=== PATIENT | female | born 1990 | race Caucasian/White ===

== ENCOUNTER 2017-05-10 18:11 | Emergency (ER) | payer SELFPAY ==
[~2017-05-10 18:11] MED LIST: METH-37 PO; NAPR-514 PO
[2017-05-10 18:25] VITALS: BP 162/111
[2017-05-10] MEDS ORDERED: IV NORMAL SALINE 1,000ML 1,000 ML IV SCH (18:45)
[2017-05-10] MEDS ORDERED: ONDANSETRON ODT 4 MG TAB.RAPDIS PO ONE (19:00)
[2017-05-10] MEDS ORDERED: NAPROXEN 500 MG TABLET PO ONE (19:00)
[2017-05-10 19:18] LABS: BASO # 0.1 x10^3/uL (0.0-0.2); BASO % 1 % (0-3); EOS # 0.3 x10^3/uL (0.0-0.7); EOS % 3 % (0-3); HEMATOCRIT 38.5 % (36.0-47.0); HEMOGLOBIN 12.8 g/dL (12.0-15.5); LYMPH # 3.3 x10^3/uL (1.0-4.8); LYMPH % 30 % (24-48); MEAN CORPUSCULAR HEMOGLOBIN 28 pg (25-35); MEAN CORPUSCULAR HGB CONC 33 g/dL (31-37); MEAN CORPUSCULAR VOLUME 85 fL (79-100); MONO # 0.6 x10^3/uL (0.0-1.1); MONO % 5 % (0-9); NEUT # 6.7 x10^3uL (1.8-7.7); NEUT % 61 % (31-73); PLATELET COUNT 314 x10^3/uL (140-400); RED BLOOD COUNT 4.51 x10^6/uL (3.50-5.40); RED CELL DISTRIBUTION WIDTH 15.5 % (11.5-14.5)
[2017-05-10 19:30] LABS: ALBUMIN 3.4 g/dL (3.4-5.0); ALBUMIN/GLOBULIN RATIO 0.8 (1.0-1.7); CALCIUM 8.9 mg/dL (8.5-10.1); CREATININE 0.8 mg/dL (0.6-1.0); POTASSIUM 3.3 mmol/L (3.5-5.1); TOTAL BILIRUBIN 0.2 mg/dL (0.2-1.0); TOTAL PROTEIN 7.6 g/dL (6.4-8.2)
[2017-05-10 19:40] LABS: BILIRUBIN,URINE NEG (NEG); CLARITY,URINE CLOUDY; COLOR,URINE YELLOW; GLUCOSE,URINE NEG (NEG); NITRITE,URINE NEG (NEG); RBC,URINE >40 /HPF (0-2); UROBILINOGEN,URINE 0.2 mg/dL (0.2 mg/dL)
[2017-05-10 19:41] LABS: BACTERIA,URINE FEW /HPF (0-FEW); SQUAMOUS EPITHELIAL CELL,UR MANY /LPF; WBC,URINE RARE /HPF (0-4)
--- NOTE | 2017-05-11 01:36 | PHYS DOC ---
Past History Past Medical History: Endometriosis, Hypertension, Kidney Stones Past Surgical History: Cholecystectomy Alcohol Use: Rarely Drug Use: None Adult General Chief Complaint Chief Complaint: FLANK PAIN HPI HPI 27-year-old female with a history of morbid obesity at over 400 pounds now presents the emergency department complaining of left flank pain. Patient states she think she has a kidney stone and is requesting some pain medicine. She states that she is allergic to Toradol and tramadol. Patient denies recent workup for kidney stone. No fevers chills sweats or shaking chills. No nausea vomiting or diarrhea. Denies possibility of as she is not sexually active Review of Systems Review of Systems Constitutional: Denies fever or chills [] Eyes: Denies change in visual acuity, redness, or eye pain [] HENT: Denies nasal congestion or sore throat [] Respiratory: Denies cough or shortness of breath [] Cardiovascular: No additional information not addressed in HPI [] GI: Denies abdominal pain, nausea, vomiting, bloody stools or diarrhea [] : Denies dysuria or hematuria [] Musculoskeletal: Denies back pain or joint pain [] Integument: Denies rash or skin lesions [] Neurologic: Denies headache, focal weakness or sensory changes [] Endocrine: Denies polyuria or polydipsia [] All other systems were reviewed and found to be within normal limits, except as documented in this note. Current Medications Current Medications Current Medications Medications (Trade) Dose Ordered Sig/Gina Start Time Stop Time Status Last Admin Dose Admin Naproxen (Naprosyn) 500 mg 1X ONCE 05/10/17 19:00 05/10/17 19:01 DC 05/10/17 19:07 500 MG Ondansetron HCl (Zofran Odt) 4 mg 1X ONCE 05/10/17 19:00 05/10/17 19:09 DC 05/10/17 19:08 4 MG Sodium Chloride 1,000 ml @ 1,000 mls/hr Q1H 05/10/17 18:45 05/10/17 19:31 DC 05/10/17 18:45 1,000 MLS/HR Allergies Allergies Allergies Coded Allergies Type Severity Reaction Last Updated Verified chlorpromazine Allergy Intermediate 04/08/14 No dicyclomine Allergy Intermediate 04/08/14 No duloxetine Allergy Intermediate 04/08/14 No fentanyl Allergy Intermediate 04/08/14 No ketorolac Allergy Intermediate 04/08/14 No promethazine Allergy Intermediate 04/08/14 No tramadol Allergy Intermediate 04/08/14 No Physical Exam Physical Exam Well-appearing patient no acute distress. No CVA tenderness. Patient is not tachycardic. And tender abdomen and anterior pelvis with normal bowel sounds no mass or megaly nondistended A completely benign exam Constitutional: Well developed, well nourished, no acute distress, non-toxic appearance. [] HENT: Normocephalic, atraumatic, bilateral external ears normal, oropharynx moist, no oral exudates, nose normal. [] Eyes: PERRLA, EOMI, conjunctiva normal, no discharge. [] Neck: Normal range of motion, no tenderness, supple, no stridor. [] Cardiovascular:Heart rate regular rhythm, no murmur [] Lungs & Thorax: Bilateral breath sounds clear to auscultation [] Abdomen: Bowel sounds normal, soft, no tenderness, no masses, no pulsatile masses. [] Skin: Warm, dry, no erythema, no rash. [] Back: No tenderness, no CVA tenderness. [] Extremities: No tenderness, no cyanosis, no clubbing, ROM intact, no edema. [] Neurologic: Alert and oriented X 3, normal motor function, normal sensory function, no focal deficits noted. [] Psychologic: Affect normal, judgement normal, mood normal. [] Current Patient Data Vital Signs Vital Signs Date Time Temp Pulse Resp B/P (MAP) Pulse Ox O2 Delivery O2 Flow Rate FiO2 05/10/17 18:25 98.8 114 20 97 Room Air Lab Results Laboratory Tests Test 05/10/17 18:20 05/10/17 18:50 05/10/17 18:59 Urine Collection Type Unknown Urine Color Yellow Urine Clarity Cloudy Urine pH 5.0 Urine Specific Forbes >=1.030 Urine Protein 30 mg/dl (NEG-TRACE) Urine Glucose (UA) Neg mg/dL (NEG) Urine Ketones (Stick) Neg mg/dL (NEG) Urine Blood Large (NEG) Urine Nitrite Neg (NEG) Urine Bilirubin Neg (NEG) Urine Urobilinogen Dipstick 0.2 mg/dL (0.2 mg/dL) Urine Leukocyte Esterase Neg (NEG) Urine RBC >40 /HPF (0-2) Urine WBC Rare /HPF (0-4) Urine Squamous Epithelial Cells Many /LPF Urine Bacteria Few /HPF (0-FEW) Urine Mucus Mod /LPF White Blood Count 11.0 x10^3/uL (4.0-11.0) Red Blood Count 4.51 x10^6/uL (3.50-5.40) Hemoglobin 12.8 g/dL (12.0-15.5) Hematocrit 38.5 % (36.0-47.0) Mean Corpuscular Volume 85 fL (79-100) Mean Corpuscular Hemoglobin 28 pg (25-35) Mean Corpuscular Hemoglobin Concent 33 g/dL (31-37) Red Cell Distribution Width 15.5 % (11.5-14.5) H Platelet Count 314 x10^3/uL (140-400) Neutrophils (%) (Auto) 61 % (31-73) Lymphocytes (%) (Auto) 30 % (24-48) Monocytes (%) (Auto) 5 % (0-9) Eosinophils (%) (Auto) 3 % (0-3) Basophils (%) (Auto) 1 % (0-3) Neutrophils # (Auto) 6.7 x10^3uL (1.8-7.7) Lymphocytes # (Auto) 3.3 x10^3/uL (1.0-4.8) Monocytes # (Auto) 0.6 x10^3/uL (0.0-1.1) Eosinophils # (Auto) 0.3 x10^3/uL (0.0-0.7) Basophils # (Auto) 0.1 x10^3/uL (0.0-0.2) Sodium Level 142 mmol/L (136-145) Potassium Level 3.3 mmol/L (3.5-5.1) L Chloride Level 103 mmol/L (98-107) Carbon Dioxide Level 28 mmol/L (21-32) Anion Gap 11 (6-14) Blood Urea Nitrogen 14 mg/dL (7-20) Creatinine 0.8 mg/dL (0.6-1.0) Estimated GFR (Cockcroft-Gault) 86.0 BUN/Creatinine Ratio 18 (6-20) Glucose Level 110 mg/dL (70-99) H Calcium Level 8.9 mg/dL (8.5-10.1) Total Bilirubin 0.2 mg/dL (0.2-1.0) Aspartate Amino Transferase (AST) 22 U/L (15-37) Alanine Aminotransferase (ALT) 34 U/L (14-59) Alkaline Phosphatase 79 U/L (46-116) Total Protein 7.6 g/dL (6.4-8.2) Albumin 3.4 g/dL (3.4-5.0) Albumin/Globulin Ratio 0.8 (1.0-1.7) L Lipase 105 U/L (73-393) POC Urine HCG, Qualitative hcg negative (Negative) EKG EKG [] Radiology/Procedures Radiology/Procedures [] Course & Med Decision Making Course & Med Decision Making Pertinent Labs and Imaging studies reviewed. (See chart for details) Morbidly obese patient who claims a history of kidney stones now requesting narcotic analgesia. She reports allergy to Toradol and tramadol. When patient became aware that she would not get IV narcotics, she decided to sign out AGAINST MEDICAL ADVICE and refused any further workup or care. Suspect malingering and drug-seeking as otherwise her behavior would not make sense for a prudent person. Encouraged to return any time [] Dragon Disclaimer Dragon Disclaimer This electronic medical record was generated, in whole or in part, using a voice recognition dictation system. Departure Departure: Impression: Primary Impression: Low back pain Additional Impressions: Drug-seeking behavior Left against medical advice Disposition: AGAINST MEDICAL ADVICE Condition: STABLE Referrals: PCP,NO (PCP) Problem Qualifiers DEAN ELKINS MD May 11, 2017 01:36
== END 2017-05-10 19:25 | disposition left against medical advice (07) ==
LOC: ER 18:11
DX: M54.5 Low back pain (principal); R10.9 Unspecified abdominal pain; E66.01 Morbid (severe) obesity due to excess calories; I10 Essential (primary) hypertension; Z76.5 Malingerer [conscious simulation]; Z87.442 Personal history of urinary calculi; Z90.49 Acquired absence of other specified parts of digestive tract; Z88.6 Allergy status to analgesic agent; Z88.8 Allergy status to other drugs, medicaments and biological substances
CPT/HCPCS: 36415; 80053; 81001; 81025; 83690; 85025; 96360; 99284; Q0162; J7030

== ENCOUNTER 2017-09-06 19:23 | Emergency (ER) | payer SELFPAY ==
[~2017-09-06] VITALS: Ht 162.6 cm; Wt 186.0 kg
[2017-09-06] MEDS ORDERED: ONDANSETRON ODT 4 MG TAB.RAPDIS ONE (19:46)
[2017-09-06] MEDS ORDERED: IV RINGERS SOLUTION,LACTATED 1,000 ML IV SCH (20:00)
[2017-09-06 20:25] LABS: BASO # 0.1 x10^3/uL (0.0-0.2); BASO % 1 % (0-3); EOS # 0.3 x10^3/uL (0.0-0.7); EOS % 2 % (0-3); HEMATOCRIT 40.5 % (36.0-47.0); HEMOGLOBIN 13.3 g/dL (12.0-15.5); LYMPH # 2.6 x10^3/uL (1.0-4.8); LYMPH % 21 % (24-48); MEAN CORPUSCULAR HEMOGLOBIN 27 pg (25-35); MEAN CORPUSCULAR HGB CONC 33 g/dL (31-37); MEAN CORPUSCULAR VOLUME 82 fL (79-100); MONO # 0.4 x10^3/uL (0.0-1.1); MONO % 4 % (0-9); NEUT # 9.2 x10^3uL (1.8-7.7); NEUT % 73 % (31-73); PLATELET COUNT 370 x10^3/uL (140-400); RED BLOOD COUNT 4.92 x10^6/uL (3.50-5.40); RED CELL DISTRIBUTION WIDTH 16.2 % (11.5-14.5); WHITE BLOOD COUNT 12.6 x10^3/uL (4.0-11.0)
[2017-09-06] MEDS ORDERED: MORPHINE SULFATE 10 MG/ML SYRINGE. SQ ONE (20:30)
[2017-09-06 20:41] LABS: ALBUMIN 3.5 g/dL (3.4-5.0); CALCIUM 8.9 mg/dL (8.5-10.1); CREATININE 0.8 mg/dL (0.6-1.0); DIRECT BILIRUBIN 0.1 mg/dL (0.0-0.2); POTASSIUM 3.7 mmol/L (3.5-5.1); TOTAL BILIRUBIN 0.4 mg/dL (0.2-1.0); TOTAL PROTEIN 7.2 g/dL (6.4-8.2)
--- NOTE | 2017-09-06 21:32 | RAD ---
Indication: Right flank pain and history of renal stones Technique: Axial images and coronal and sagittal reformatted images are provided. No comparison is available. One or more of the following individualized dose reduction techniques were utilized for this examination: 1. Automated exposure control 2. Adjustment of the mA and/or kV according to patient size 3. Use of iterative reconstruction technique Findings: Lung bases are clear. There is no pleural effusion. The heart is not enlarged. Solid organ evaluation is limited without contrast. There is fatty infiltration of the liver. Gallbladder is absent. Spleen is not enlarged. Pancreas and adrenals are unremarkable. There is no urolithiasis. Neither ureter is dilated. Aorta is normal caliber. There is no dilated small bowel loop or air-fluid level. Colon is unremarkable. Normal appendix is visualized. There is no bladder calculus. There is no adnexal mass. There is no free pelvic fluid. Bony structures are intact. Portions of this patient's subcutaneous tissues cannot be included in the [id number]. IMPRESSION: 1. No acute abdominal findings. 2. Fatty infiltration of the liver. Electronically signed by: Jose Hanna MD (09/06/2017 9:28 PM) [facility]
[2017-09-06 21:35] LABS: BILIRUBIN,URINE NEG (NEG); CLARITY,URINE HAZY; COLOR,URINE YELLOW; GLUCOSE,URINE NEG (NEG)
[2017-09-06 21:36] LABS: BACTERIA,URINE 0 /HPF (0-FEW); NITRITE,URINE NEG (NEG); RBC,URINE 20-40 /HPF (0-2); SQUAMOUS EPITHELIAL CELL,UR FEW /LPF; UROBILINOGEN,URINE 0.2 mg/dL (0.2 mg/dL)
[2017-09-06 21:38] LABS: BARBITURATES NEG (NEG); BENZODIAZEPINES NEG (NEG); CANNABINOIDS NEG (NEG); COCAINE NEG (NEG); METHADONE NEG (NEG); OPIATES POS (NEG); PHENCYCLIDINE NEG (NEG)
[2017-09-06 21:39] LABS: AMPHETAMINE/METHAMPHETAMINE NEG (NEG)
[2017-09-06] MEDS ORDERED: cefTRIAXone IM 1 GM VIAL IM ONE (21:45)
[2017-09-06] MEDS ORDERED: ONDA8TAB12 PO (21:49)
[2017-09-06 22:00] VITALS: BP 132/84
[2017-09-06] MEDS ORDERED: MAGNESIUM CITRATE 296 ML SOLUTION. PO ONE (22:15)
--- NOTE | 2017-09-07 07:08 | ED.ADGEN ---
Past History Past Medical History: Endometriosis, Hypertension, Kidney Stones, Other Past Surgical History: Cholecystectomy Alcohol Use: Rarely Drug Use: None Adult General Chief Complaint Chief Complaint ".. I think I am having a kidney stone...here on the Rt.... of course it may be a urinary tract infection.. I get those too..." HPI HPI Patient is a 27 year old female who presents with Rt. flank pain this afternoon. Patient rates her pain as 10 out of 10. Pain is right upper flank and radiates to lower abdomen. Patient reports history of previous kidney stones. Patient denies any trauma. Patient denies any specific ill contacts. Patient denies any travel. Patient denies any history of immunosuppression. Patient does not follow-up primary care. Patient has been seen previously for similar-type presentations. Patient does have a history of endometriosis. Patient reports she is due for period. Patient does exhibit some narcotic seeking behaviors. Review of Systems Review of Systems Constitutional: Denies fever or chills [] Eyes: Denies change in visual acuity, redness, or eye pain [] HENT: Denies nasal congestion or sore throat [] Respiratory: Denies cough or shortness of breath [] Cardiovascular: No additional information not addressed in HPI [] GI: Complaints of abdominal pain, nausea, vomiting, . Denies bloody stools or diarrhea [] : Denies dysuria or hematuria [] Musculoskeletal: Denies back pain or joint pain [] Integument: Denies rash or skin lesions [] Neurologic: Denies headache, focal weakness or sensory changes [] Endocrine: Denies polyuria or polydipsia [] All other systems were reviewed and found to be within normal limits, except as documented in this note. Family History Family History Noncontributory Current Medications Current Medications Current Medications Medications (Trade) Dose Ordered Sig/Gina Start Time Stop Time Status Last Admin Dose Admin Ceftriaxone Sodium (Rocephin Im) 1 gm 1X ONCE 09/06/17 21:45 09/06/17 21:46 DC Lactated Ringer's 1,000 ml @ 1,000 mls/hr Q1H 09/06/17 20:00 09/06/17 20:59 DC 09/06/17 19:52 1,000 MLS/HR Magnesium Citrate (Citroma) 296 ml 1X ONCE 09/06/17 22:15 09/06/17 22:16 DC Morphine Sulfate (Morphine 10mg Syringe) 10 mg 1X ONCE 09/06/17 20:30 09/06/17 20:31 DC 09/06/17 20:30 10 MG Ondansetron HCl (Zofran Odt) 4 mg STK-MED ONCE 09/06/17 19:46 09/06/17 19:47 DC Allergies Allergies Allergies Coded Allergies Type Severity Reaction Last Updated Verified chlorpromazine Allergy Intermediate 09/06/17 No dicyclomine Allergy Intermediate 09/06/17 No duloxetine Allergy Intermediate 09/06/17 No fentanyl Allergy Intermediate 09/06/17 No ketorolac Allergy Intermediate 09/06/17 No promethazine Allergy Intermediate 09/06/17 No tramadol Allergy Intermediate 09/06/17 No ibuprofen Allergy Unknown Hives 09/06/17 Yes Physical Exam Physical Exam Constitutional: Moderately acute distress, non-toxic appearance. [] HENT: Normocephalic, atraumatic, bilateral external ears normal, oropharynx moist, no oral exudates, nose normal. [] Eyes: PERRLA, EOMI, conjunctiva normal, no discharge. [] Neck: Normal range of motion, no tenderness, supple, no stridor. [] Cardiovascular:Heart rate regular rhythm, no murmur [] Lungs & Thorax: Bilateral breath sounds equal at apex with scattered wheezes on auscultation [] Abdomen: Bowel sounds normal, soft, upper right quadrant and flank tenderness, no masses, no pulsatile masses. [] Morbidly obese. Skin: Warm, dry, no erythema, no rash. [] Back: No tenderness, right CVA tenderness. [] Extremities: No tenderness, no cyanosis, no clubbing, ROM intact, ankle edema. [ ] Neurologic: Alert and oriented X 3, normal motor function, normal sensory function, no focal deficits noted. [] Psychologic: Affect anxious, judgement normal, mood normal. [] Current Patient Data Vital Signs Vital Signs Date Time Temp Pulse Resp B/P (MAP) Pulse Ox O2 Delivery O2 Flow Rate FiO2 09/06/17 21:30 97 18 140/87 (104) 96 Room Air 09/06/17 19:27 98.8 Lab Results Laboratory Tests Test 09/06/17 19:52 09/06/17 20:46 White Blood Count 12.6 x10^3/uL (4.0-11.0) H Red Blood Count 4.92 x10^6/uL (3.50-5.40) Hemoglobin 13.3 g/dL (12.0-15.5) Hematocrit 40.5 % (36.0-47.0) Mean Corpuscular Volume 82 fL (79-100) Mean Corpuscular Hemoglobin 27 pg (25-35) Mean Corpuscular Hemoglobin Concent 33 g/dL (31-37) Red Cell Distribution Width 16.2 % (11.5-14.5) H Platelet Count 370 x10^3/uL (140-400) Neutrophils (%) (Auto) 73 % (31-73) Lymphocytes (%) (Auto) 21 % (24-48) L Monocytes (%) (Auto) 4 % (0-9) Eosinophils (%) (Auto) 2 % (0-3) Basophils (%) (Auto) 1 % (0-3) Neutrophils # (Auto) 9.2 x10^3uL (1.8-7.7) H Lymphocytes # (Auto) 2.6 x10^3/uL (1.0-4.8) Monocytes # (Auto) 0.4 x10^3/uL (0.0-1.1) Eosinophils # (Auto) 0.3 x10^3/uL (0.0-0.7) Basophils # (Auto) 0.1 x10^3/uL (0.0-0.2) Prothrombin Time 11.0 SEC (9.4-11.4) Prothrombin Time INR 1.1 (0.9-1.1) PTT 25 SEC (23-33) Sodium Level 142 mmol/L (136-145) Potassium Level 3.7 mmol/L (3.5-5.1) Chloride Level 104 mmol/L (98-107) Carbon Dioxide Level 31 mmol/L (21-32) Anion Gap 7 (6-14) Blood Urea Nitrogen 7 mg/dL (7-20) Creatinine 0.8 mg/dL (0.6-1.0) Estimated GFR (Cockcroft-Gault) 86.0 Glucose Level 91 mg/dL (70-99) Calcium Level 8.9 mg/dL (8.5-10.1) Total Bilirubin 0.4 mg/dL (0.2-1.0) Direct Bilirubin 0.1 mg/dL (0.0-0.2) Aspartate Amino Transferase (AST) 28 U/L (15-37) Alanine Aminotransferase (ALT) 39 U/L (14-59) Alkaline Phosphatase 85 U/L (46-116) Total Protein 7.2 g/dL (6.4-8.2) Albumin 3.5 g/dL (3.4-5.0) Lipase 67 U/L (73-393) L Urine Collection Type Unknown Urine Color Yellow Urine Clarity Hazy Urine pH 6.5 Urine Specific Gilbert 1.020 Urine Protein 100 mg/dl (NEG-TRACE) Urine Glucose (UA) Neg mg/dL (NEG) Urine Ketones (Stick) Trace mg/dL (NEG) Urine Blood Large (NEG) Urine Nitrite Neg (NEG) Urine Bilirubin Neg (NEG) Urine Urobilinogen Dipstick 0.2 mg/dL (0.2 mg/dL) Urine Leukocyte Esterase Neg (NEG) Urine RBC 20-40 /HPF (0-2) Urine WBC 1-4 /HPF (0-4) Urine Squamous Epithelial Cells Few /LPF Urine Bacteria 0 /HPF (0-FEW) Urine Mucus Mod /LPF Urine Opiates Screen Pos (NEG) Urine Methadone Screen Neg (NEG) Urine Barbiturates Neg (NEG) Urine Phencyclidine Screen Neg (NEG) Urine Amphetamine/Methamphetamine Neg (NEG) Urine Benzodiazepines Screen Neg (NEG) Urine Cocaine Screen Neg (NEG) Urine Cannabinoids Screen Neg (NEG) Urine Ethyl Alcohol Neg (NEG) EKG EKG [] Radiology/Procedures Radiology/Procedures CT findings showed no hydronephrosis. No acute surgical pathology. Review formal report available[] Course & Med Decision Making Course & Med Decision Making Pertinent Labs and Imaging studies reviewed. (See chart for details). Pt. decline plain X-ray films. Shortly after pt. received Morphine SQ-pt demanded discharge. Patient encouraged follow-up primary care. Patient return if any concerns. Patient stay on a clear fluid diet only for the next 48 hours. Push fluids. Tylenol and ibuprofen for pain. [] Final Impression Final Impression 1. Right flank abdomen pain[] 2. Hematuria 3. Hx. endometriosis 4. Morbid Obesity 5. Renal Colic 6. Mild leukocytosis Dragon Disclaimer Dragon Disclaimer This electronic medical record was generated, in whole or in part, using a voice recognition dictation system. KAREN BACA MD Sep 07, 2017 07:08
== END 2017-09-06 22:32 | disposition home or self-care (01) ==
LOC: ER 19:23
DX: N23 Unspecified renal colic (principal); R31.9 Hematuria, unspecified; D72.829 Elevated white blood cell count, unspecified; I10 Essential (primary) hypertension; E66.01 Morbid (severe) obesity due to excess calories; Z87.442 Personal history of urinary calculi; Z68.45 Body mass index [BMI] 70 or greater, adult; Z88.6 Allergy status to analgesic agent; Z88.4 Allergy status to anesthetic agent; Z88.8 Allergy status to other drugs, medicaments and biological substances
CPT/HCPCS: 36415; 74176; 80048; 80076; 80307; 81001; 83690; 85025; 85610; 85730; 96360; 96372; 99285; J2270; J7120; G0479

== ENCOUNTER 2017-09-07 12:50 | Emergency (ER) | payer SELFPAY ==
[~2017-09-07] VITALS: Ht 162.6 cm; Wt 182.0 kg
[~2017-09-07 12:50] MED LIST changes: +ONDA8TAB12 PO
[2017-09-07 13:06] VITALS: BP 153/90
--- NOTE | 2017-09-07 16:13 | ED.ADGEN ---
Past History Past Medical History: Kidney Infection, Kidney Stones, UTI Past Surgical History: Cholecystectomy Alcohol Use: None Drug Use: None Adult General Chief Complaint Chief Complaint Back pain HPI HPI Patient is a 27-year-old female with history of chronic intermittent back pain who presents with right back pain. Patient was evaluated for the same complaint last evening in the emergency department. Pain is described as moderate to severe and worse with palpation and movement. She had extensive workup including blood work, urine and imaging studies. Patient left prior to results and is concerned that she may have a kidney infection. No fever chills, nausea vomiting. No abdominal pain. No hematuria. No history of kidney stones. No urinary frequency urgency.[] Review of Systems Review of Systems Review symptoms as per history of present illness. All other review symptoms are negative. All other systems were reviewed and found to be within normal limits, except as documented in this note. Allergies Allergies Allergies Coded Allergies Type Severity Reaction Last Updated Verified chlorpromazine Allergy Intermediate 09/06/17 No dicyclomine Allergy Intermediate 09/06/17 No duloxetine Allergy Intermediate 09/06/17 No fentanyl Allergy Intermediate 09/06/17 No ketorolac Allergy Intermediate 09/06/17 No promethazine Allergy Intermediate 09/06/17 No tramadol Allergy Intermediate 09/06/17 No ibuprofen Allergy Unknown Hives 09/06/17 Yes Physical Exam Physical Exam Constitutional: Well developed, well nourished, no acute distress, non-toxic appearance. [] HENT: Normocephalic, atraumatic, bilateral external ears normal, oropharynx moist, no oral exudates, nose normal. [] Eyes: PERRL.. [] Neck: Normal range of motion, no tenderness. [] Cardiovascular:Heart rate regular rhythm.[] Lungs & Thorax: Bilateral breath sounds clear to auscultation [] Abdomen: Bowel sounds normal, soft, no tenderness. [] Skin: Warm, dry. [] Back: Right-sided mid back pain, worse with palpation, movement and trunk rotation. [] Extremities: No tenderness. [] Neurologic: Alert and oriented X 3, normal motor function, normal sensory function, no focal deficits noted. [] Psychologic: Affect normal, judgement normal, mood normal. [] Current Patient Data Vital Signs Vital Signs Date Time Temp Pulse Resp B/P (MAP) Pulse Ox O2 Delivery O2 Flow Rate FiO2 09/07/17 13:06 99.2 120 22 98 Room Air EKG EKG [] Radiology/Procedures Radiology/Procedures [09/06/17, CT Abdomen/pelvis: No acute disease Course & Med Decision Making Course & Med Decision Making Pertinent Labs and Imaging studies reviewed. (See chart for details) [Previous medical records reviewed. Diffuse right back pain, worse with palpation and movement. Lab, and imaging studies reviewed and yesterday nondiagnostic. Recommend supportive care PCP for further management..] Final Impression Final Impression [#1 right sided back pain] [place] Disclaimer Dragon Disclaimer This electronic medical record was generated, in whole or in part, using a voice recognition dictation system. YASMINE DESHPANDE DO Sep 07, 2017 16:13
== END 2017-09-07 13:38 | disposition home or self-care (01) ==
LOC: ER 12:50
DX: M54.89 Other dorsalgia (principal); Z87.440 Personal history of urinary (tract) infections; Z87.442 Personal history of urinary calculi; Z90.49 Acquired absence of other specified parts of digestive tract; Z88.6 Allergy status to analgesic agent; Z88.4 Allergy status to anesthetic agent; Z88.8 Allergy status to other drugs, medicaments and biological substances
CPT/HCPCS: 99281

== ENCOUNTER 2018-01-25 14:18 | Emergency (ER) | payer SELFPAY ==
[~2018-01-25] VITALS: Ht 162.6 cm; Wt 174.6 kg
[2018-01-25 14:22] VITALS: BP 153/90
[2018-01-25] MEDS ORDERED: HYDR-971 PO (14:55)
[2018-01-25] MEDS ORDERED: NAPR-683 PO (14:55)
--- NOTE | 2018-01-25 14:55 | PHYS DOC ---
Past History Past Medical History: Kidney Infection, Kidney Stones, UTI Past Surgical History: Cholecystectomy Smoking: Cigarettes Alcohol Use: None Drug Use: None Adult General Chief Complaint Chief Complaint: SHOULDER INJURY [facility] HPI Patient is a 28 year old right-handed female who presents with complaining of fall and injury to left shoulder. Patient states she had an accidental fall and landed on her left shoulder without loss of consciousness or other injuries. Patient states she able to raise her arm and rated her pain as a severe pain. Patient denies . Review of Systems Review of Systems Constitutional: Denies fever or chills [] Eyes: Denies change in visual acuity, redness, or eye pain [] HENT: Denies nasal congestion or sore throat [] Respiratory: Denies cough or shortness of breath [] Cardiovascular: No additional information not addressed in HPI [] GI: Denies abdominal pain, nausea, vomiting, bloody stools or diarrhea [] : Denies dysuria or hematuria [] Musculoskeletal: Denies back pain, reports joint pain [] Integument: Denies rash or skin lesions [] Neurologic: Denies headache, focal weakness or sensory changes [] Endocrine: Denies polyuria or polydipsia [] All other systems were reviewed and found to be within normal limits, except as documented in this note. Allergies Allergies Allergies Coded Allergies Type Severity Reaction Last Updated Verified chlorpromazine Allergy Intermediate 09/06/17 No dicyclomine Allergy Intermediate 09/06/17 No duloxetine Allergy Intermediate 09/06/17 No fentanyl Allergy Intermediate 09/06/17 No ketorolac Allergy Intermediate 09/06/17 No promethazine Allergy Intermediate 09/06/17 No tramadol Allergy Intermediate 09/06/17 No ibuprofen Allergy Unknown Hives 09/06/17 Yes Physical Exam Physical Exam Constitutional: Well developed, well nourished, MILD distress, non-toxic appearance, morbidly obese. [] HENT: Normocephalic, atraumatic. Eyes: PERRLA, EOMI, conjunctiva normal, no discharge. [] Neck: Normal range of motion, no tenderness, supple, no stridor. [] Cardiovascular:Heart rate regular rhythm, no murmur [] Lungs & Thorax: Bilateral breath sounds clear to auscultation [] Skin: Warm, dry, no erythema, no rash. [] Back: No tenderness, no CVA tenderness. [] Extremities: Left shoulder without deformity or edema, painful range of motion, no tenderness, no cyanosis, no clubbing, ROM intact, no edema. [] Neurologic: Alert and oriented X 3, normal motor function, normal sensory function, no focal deficits noted. [] Psychologic: Affect anxious, judgement normal, mood normal. [] EKG EKG [] Radiology/Procedures Radiology/Procedures [] Course & Med Decision Making Course & Med Decision Making Pertinent Imaging studies reviewed. (See chart for details) Evaluation of patient in ER showed 28-year-old female patient with complaining of injury to left shoulder. Patient had unremarkable physical exam and x-ray. Plan discharge patient home with diagnosis of shoulder sprain. Dragon Disclaimer Dragon Disclaimer This electronic medical record was generated, in whole or in part, using a voice recognition dictation system. Departure Departure: Impression: Primary Impression: Left shoulder strain Additional Impressions: Morbid obesity Tobacco abuse Tobacco abuse counseling Fall at home Disposition: HOME, SELF-CARE (at 1455) Condition: STABLE Referrals: PCP,NO (PCP) Patient Instructions: Fall Prevention and Home Safety, Shoulder Sprain, Smoking Cessation, Tips For Success Additional Instructions: Apply ice on the affected area Follow-up with your orthopedic physician in 2 or 3 days or call quality control coordinator orthopedic physician Dr. Hughes at [phone] to make an appointment Return to ER if not getting better Scripts Hydrocodone Bit/Acetaminophen (NORCO 5-325 TABLET) 1 Each Tablet 1 TAB PO PRN Q6HRS PRN for PAIN, #8 TAB 0 Refills Prov: KEEGAN BEST MD 01/25/18 Naproxen (NAPROSYN) 500 Mg Tablet 1 TAB PO BID, #20 TAB Prov: KEEGAN BEST MD 01/25/18 Problem Qualifiers KEEGAN BEST MD Jan 25, 2018 14:55
--- NOTE | 2018-01-25 15:01 | RAD ---
Indication:FELL HURT SHOULDER THIS AM, SHIELDED TECHNIQUE: 3 views of the right shoulder COMPARISON:None FINDINGS:No acute fracture or dislocation. Visualized right lung is clear. No osteoarthritis. IMPRESSION: No acute findings. Electronically signed by: Jesse Ford DO (01/25/2018 2:57 PM) [facility]
[2018-01-25] MEDS ORDERED: HYDROcodone/APAP 5/325MG 1 TAB TABLET PO ONE (15:15)
== END 2018-01-25 15:05 | disposition home or self-care (01) ==
LOC: ER 14:18
DX: S46.912A Strain of unspecified muscle, fascia and tendon at shoulder and upper arm level, left arm, initial encounter (principal); F17.210 Nicotine dependence, cigarettes, uncomplicated; E66.01 Morbid (severe) obesity due to excess calories; Z87.442 Personal history of urinary calculi; Z87.440 Personal history of urinary (tract) infections; Z71.6 Tobacco abuse counseling; Z68.44 Body mass index [BMI] 60.0-69.9, adult; W18.30XA Fall on same level, unspecified, initial encounter; Y93.89 Activity, other specified; Y92.098 Other place in other non-institutional residence as the place of occurrence of the external cause; Y99.8 Other external cause status
CPT/HCPCS: 73030; 99284

== ENCOUNTER 2018-01-30 16:16 | Emergency (ER) | payer SELFPAY ==
[~2018-01-30] VITALS: Ht 162.6 cm; Wt 170.0 kg
[~2018-01-30 16:16] MED LIST changes: +HYDR-971 PO; +NAPR-683 PO
[2018-01-30 16:30] VITALS: BP 164/99
--- NOTE | 2018-01-30 16:41 | ED.ADGEN ---
Past History Past Medical History: Kidney Infection, Kidney Stones, UTI Past Surgical History: Cholecystectomy Smoking: Cigarettes Alcohol Use: None Drug Use: None Adult General Chief Complaint Chief Complaint Chronic left shoulder pain HPI HPI Patient is a 28-year-old right-handed female with history of chronic left shoulder injury with partial rotator cuff tear who presents with poorly controlled left shoulder pain. Patient was evaluated the 5 days ago for the same and was prescribed hydrocodone and naproxen. States she is currently out of hydrocodone and that naproxen does not adequately control her pain. 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 She is currently scheduled to follow-up with orthopedic physician this week.] Review of Systems Review of Systems Review symptoms as per history of present illness. All other systems were reviewed and found to be within normal limits, except as documented in this note. Allergies Allergies Allergies Coded Allergies Type Severity Reaction Last Updated Verified chlorpromazine Allergy Intermediate 09/06/17 No dicyclomine Allergy Intermediate 09/06/17 No duloxetine Allergy Intermediate 09/06/17 No fentanyl Allergy Intermediate 09/06/17 No ketorolac Allergy Intermediate 09/06/17 No promethazine Allergy Intermediate 09/06/17 No tramadol Allergy Intermediate 09/06/17 No ibuprofen Allergy Unknown Hives 09/06/17 Yes Physical Exam Physical Exam Constitutional: Well developed, well nourished, no acute distress, non-toxic appearance. [] HENT: Normocephalic, atraumatic, bilateral external ears normal, oropharynx moist, no oral exudates, nose normal. [] Eyes: PERRLA, EOMI, conjunctiva normal, no discharge. [] Neck: Normal range of motion, no tenderness, supple, no stridor. [] Extremities: Shoulder, soft tissue tenderness, pain range of motion, no deformity swelling bruising, warmth appreciated.. [] Neurologic: Alert and oriented X 3, normal motor function, normal sensory function, no focal deficits noted. [] Psychologic: Affect normal, judgement normal, mood normal. [] Current Patient Data Vital Signs Vital Signs Date Time Temp Pulse Resp B/P (MAP) Pulse Ox O2 Delivery O2 Flow Rate FiO2 01/30/18 16:30 98.5 115 20 98 Room Air EKG EKG [] Radiology/Procedures Radiology/Procedures [] Course & Med Decision Making Course & Med Decision Making Pertinent Labs and Imaging studies reviewed. (See chart for details) [Chronic left shoulder pain exacerbation with recent evaluation in this ED 5 days ago for the same. Nonnarcotic pain medication offered but declined by patient. Patient placed in sling. Given that this is a chronic medical condition and the patient's recent received a narcotic prescription from this emergency department 5 days ago I am not comfortable refilling this medication. 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 ] Final Impression Final Impression [#1 chronic left shoulder pain] Crys Disclaimer Dragon Disclaimer This electronic medical record was generated, in whole or in part, using a voice recognition dictation system. YASMINE DESHPANDE DO Jan 30, 2018 16:41
== END 2018-01-30 16:40 | disposition home or self-care (01) ==
LOC: ER 16:16
DX: G89.29 Other chronic pain (principal); M25.512 Pain in left shoulder; F17.210 Nicotine dependence, cigarettes, uncomplicated; Z87.440 Personal history of urinary (tract) infections; Z87.442 Personal history of urinary calculi; Z88.8 Allergy status to other drugs, medicaments and biological substances; Z88.6 Allergy status to analgesic agent
CPT/HCPCS: 99282

== ENCOUNTER 2018-02-20 10:00 | Emergency (ER) | payer SELFPAY ==
[~2018-02-20] VITALS: Ht 162.6 cm; Wt 167.8 kg
[~2018-02-20 10:00] MED LIST changes: +HYDR-3165 PO; -HYDR-971 PO
[2018-02-20 10:08] VITALS: BP 168/118
[2018-02-20] MEDS ORDERED: METOCLOPRAMIDE HCL 10 MG/2 ML VIAL. IM ONE (10:30)
[2018-02-20] MEDS ORDERED: MEPERIDINE PF 50 MG/ML VIAL. IV ONE ×3 (10:30→12:15)
[2018-02-20] MEDS ORDERED: IV NORMAL SALINE 1,000ML 1,000 ML IV SCH (10:30)
--- NOTE | 2018-02-20 10:35 | PHYS DOC ---
Past History Past Medical History: Hypertension, Kidney Infection, Kidney Stones, UTI Past Surgical History: Cholecystectomy Smoking: Cigarettes Alcohol Use: None Drug Use: None Adult General Chief Complaint Chief Complaint: FLANK PAIN HPI HPI Patient is a 28 year old female who presents with left flank pain wrapping around to her left lower quadrant. This started this morning waking her up from sleep. Patient has nausea and vomiting. Patient has a history of previous kidney stones and this is how her previous kidney stones presented. She noticed blood in her urine as well. No vaginal bleeding. Patient is 1 para 0, and approximately 11 weeks . No blood in her emesis. No home medicines have been taken. No diarrhea. Nothing seems to make the pain better or worse. No fevers.[] Review of Systems Review of Systems Constitutional: Denies fever or chills [] Eyes: Denies change in visual acuity, redness, or eye pain [] HENT: Denies nasal congestion or sore throat [] Respiratory: Denies cough or shortness of breath [] Cardiovascular: No chest pain or palpitations[] GI: See history of present illness[] : Denies dysuria or hematuria [] Musculoskeletal: Denies back pain or joint pain [] Integument: Denies rash or skin lesions [] Neurologic: Denies headache, focal weakness or sensory changes [] Endocrine: Denies polyuria or polydipsia [] All other systems were reviewed and found to be within normal limits, except as documented in this note. Current Medications Current Medications Current Medications Medications (Trade) Dose Ordered Sig/Gina Start Time Stop Time Status Last Admin Dose Admin Meperidine HCl (Demerol) 50 mg 1X ONCE 02/20/18 10:30 02/20/18 10:31 Metoclopramide HCl (Reglan Vial) 10 mg 1X ONCE 02/20/18 10:30 02/20/18 10:31 Sodium Chloride 1,000 ml @ 1,000 mls/hr Q1H 02/20/18 10:30 02/20/18 11:29 Allergies Allergies Allergies Coded Allergies Type Severity Reaction Last Updated Verified chlorpromazine Allergy Intermediate 09/06/17 No dicyclomine Allergy Intermediate 09/06/17 No duloxetine Allergy Intermediate 09/06/17 No fentanyl Allergy Intermediate 09/06/17 No ketorolac Allergy Intermediate 09/06/17 No promethazine Allergy Intermediate 09/06/17 No tramadol Allergy Intermediate 09/06/17 No ibuprofen Allergy Unknown Hives 09/06/17 Yes Physical Exam Physical Exam Constitutional: Well developed, well nourished, uncomfortable, moving around in an attempt to get pain control, non-toxic appearance. [] HENT: Normocephalic, atraumatic, bilateral external ears normal, oropharynx moist, no oral exudates, nose normal. [] Eyes: PERRLA, EOMI, conjunctiva normal, no discharge. [] Neck: Normal range of motion, no tenderness, supple, no stridor. [] Cardiovascular:Heart rate regular rhythm, no murmur [] Lungs & Thorax: Bilateral breath sounds clear to auscultation [] Abdomen: Bowel sounds normal, soft, no tenderness, no masses, no pulsatile masses. [] Skin: Warm, dry, no erythema, no rash. [] Back: No tenderness, no CVA tenderness. [] Extremities: No tenderness, no cyanosis, no clubbing, ROM intact, no edema. [] Neurologic: Alert and oriented X 3, normal motor function, normal sensory function, no focal deficits noted. [] Psychologic: Affect normal, judgement normal, mood normal. [] Current Patient Data Vital Signs Vital Signs Date Time Temp Pulse Resp B/P (MAP) Pulse Ox O2 Delivery O2 Flow Rate FiO2 02/20/18 10:08 Room Air 02/20/18 10:08 98.0 116 22 100 EKG EKG [] Radiology/Procedures Radiology/Procedures Pelvic ultrasound shows a single live intrauterine with an estimated gestational age of 10 weeks 3 days. Ovaries are not visualized. Trace pelvic free fluid, likely physiologic. Ultrasound of the kidneys shows both kidneys present without hydronephrosis[] Course & Med Decision Making Course & Med Decision Making Pertinent Labs and Imaging studies reviewed. (See chart for details) Medical decision making: This is most likely kidney stone patient has had one previously we'll attempt outpatient management with narcotic pain medicine and antiemetics and have patient follow-up with her urologist as well as primary care physician. Cannot prescribe NSAIDs given that she is . There is no evidence of an ectopic . No evidence of oral intake intolerance. No other evidence of acute intra-abdominal pathology. ED course: Patient arrived, was placed in bed, in tolerated exam well. Patient didn't achieve pain relief with IV Demerol. Was transported to and from [facility] with any complications. She did require second dose of Demerol on the emergency department. Patient was discharged in improved condition after labs and imaging studies of been explained. All questions were answered.[] Dragon Disclaimer Dragon Disclaimer This electronic medical record was generated, in whole or in part, using a voice recognition dictation system. Departure Departure: Impression: Primary Impression: Kidney stone on left side Additional Impression: 10 weeks gestation of Disposition: HOME, SELF-CARE Condition: GOOD Referrals: PCP,NO (PCP) Patient Instructions: Diet for Kidney Stones, Kidney Stones, Additional Instructions: Drink plenty of fluids. 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 Return to the ER if any concerns. Scripts Ondansetron Hcl (ZOFRAN) 4 Mg Tablet 1 TAB PO Q6HRS for vomiting, #20 TAB Prov: WILLI YEE DO 02/20/18 Acetaminophen With Codeine (TYLENOL WITH CODEINE #3 TABLET) 1 Each Tablet 1 TAB PO Q4-6HRS for pain, #30 TAB Prov: WILLI YEE DO 02/20/18 Tamsulosin Hcl (FLOMAX) 0.4 Mg Cap.er.24h 0.4 MG PO DAILY for kidney stone, #10 CAP.SR Prov: WLILI YEE DO 02/20/18 Problem Qualifiers WILLI YEE DO Feb 20, 2018 10:35
[2018-02-20 10:37] LABS: BILIRUBIN,URINE NEG (NEG); CLARITY,URINE CLOUDY; COLOR,URINE RED; GLUCOSE,URINE NEG (NEG); NITRITE,URINE NEG (NEG); UROBILINOGEN,URINE 0.2 mg/dL (0.2 mg/dL)
[2018-02-20 10:39] LABS: BACTERIA,URINE FEW /HPF (0-FEW); RBC,URINE >40 /HPF (0-2); SQUAMOUS EPITHELIAL CELL,UR MOD /LPF
[2018-02-20 10:40] LABS: BASO # 0.1 x10^3/uL (0.0-0.2); BASO % 1 % (0-3); EOS # 0.2 x10^3/uL (0.0-0.7); EOS % 3 % (0-3); HEMATOCRIT 40.6 % (36.0-47.0); HEMOGLOBIN 13.5 g/dL (12.0-15.5); LYMPH # 2.9 x10^3/uL (1.0-4.8); LYMPH % 30 % (24-48); MEAN CORPUSCULAR HEMOGLOBIN 30 pg (25-35); MEAN CORPUSCULAR HGB CONC 33 g/dL (31-37); MEAN CORPUSCULAR VOLUME 90 fL (79-100); MONO # 0.4 x10^3/uL (0.0-1.1); MONO % 4 % (0-9); NEUT # 6.1 x10^3uL (1.8-7.7); NEUT % 62 % (31-73); PLATELET COUNT 283 x10^3/uL (140-400); RED CELL DISTRIBUTION WIDTH 14.7 % (11.5-14.5); WHITE BLOOD COUNT 9.8 x10^3/uL (4.0-11.0)
[2018-02-20 10:55] LABS: ALBUMIN 3.3 g/dL (3.4-5.0); ALBUMIN/GLOBULIN RATIO 0.8 (1.0-1.7); CALCIUM 8.7 mg/dL (8.5-10.1); CREATININE 0.6 mg/dL (0.6-1.0); POTASSIUM 3.6 mmol/L (3.5-5.1); TOTAL BILIRUBIN 0.3 mg/dL (0.2-1.0); TOTAL PROTEIN 7.4 g/dL (6.4-8.2)
--- NOTE | 2018-02-20 12:22 | RAD ---
Ultrasound of ventricles and 14 weeks with transvaginal ultrasound 02/20/2018 Clinical indications: Pelvic pain 11 weeks . COMPARISON: None. FINDINGS: Transabdominal and endovaginal images were obtained. Transabdominal images are limited in evaluation due to body habitus. Uterus measures 11.2 x 5.9 x 8.1 cm. There is a fundal gestational sac and pole with the crown-rump length measuring 3.5 cm consistent with estimated gestational age of 10 weeks 3 days. heart rate is identified estimated at 178 bpm. There is trace pelvic free fluid, likely physiologic. The ovaries are not visualized. IMPRESSION: 1. Single living intrauterine with estimated gestational age of 10 weeks 3 days. 2. Ovaries are not visualized. 3. Trace pelvic free fluid, likely physiologic. Electronically signed by: Michael Cole MD (02/20/2018 12:18 PM) [facility]
--- NOTE | 2018-02-20 12:23 | RAD ---
Renal ultrasound complete 02/20/2018 Clinical indications: Left flank pain, . COMPARISON: CT abdomen pelvis 09/06/2017. FINDINGS: Right kidney measures 13.4 cm is length without hydronephrosis or normal perinephric fluid collection. The partially distended urinary bladder is unremarkable. Left kidney measures 12.9 cm in length without hydronephrosis or abnormal perinephric fluid collection. IMPRESSION: Both kidneys present without hydronephrosis. Electronically signed by: Michael Cole MD (02/20/2018 12:19 PM) [facility]
[2018-02-20] MEDS ORDERED: ONDANSETRON PF 4 MG/2 ML VIAL. IV ONE (12:30)
[2018-02-20] MEDS ORDERED: ACET-704 PO (13:11)
[2018-02-20] MEDS ORDERED: ONDA4TAB7 PO (13:11)
[2018-02-20] MEDS ORDERED: TAMS0.4C97 PO (13:11)
== END 2018-02-20 13:58 | disposition home or self-care (01) ==
LOC: ER 10:00
DX: O26.831 Pregnancy related renal disease, first trimester (principal); N20.0 Calculus of kidney; O16.1 Unspecified maternal hypertension, first trimester; O23.41 Unspecified infection of urinary tract in pregnancy, first trimester; O99.331 Smoking (tobacco) complicating pregnancy, first trimester; Z90.49 Acquired absence of other specified parts of digestive tract; Z3A.10 10 weeks gestation of pregnancy; Z88.1 Allergy status to other antibiotic agents; Z88.6 Allergy status to analgesic agent; Z88.8 Allergy status to other drugs, medicaments and biological substances
CPT/HCPCS: 36415; 76770; 76801; 76817; 80053; 81001; 84702; 85025; 96374; 96375; 96376; 99284; J2175; J2405; J7030

== ENCOUNTER 2018-03-07 21:15 | Emergency (ER) | payer SELFPAY ==
[~2018-03-07] VITALS: Ht 162.6 cm; Wt 176.9 kg
[~2018-03-07 21:15] MED LIST changes: +ACET-704 PO; +ONDA4TAB7 PO; +TAMS0.4C97 PO
--- NOTE | 2018-03-07 21:34 | ED.ADGEN ---
Past History Past Medical History: Hypertension, Kidney Infection, Kidney Stones, UTI, Other Past Medical History Endometriosis Past Surgical History: Cholecystectomy Smoking: Cigarettes Alcohol Use: None Drug Use: None Adult General Chief Complaint Chief Complaint ".. They think I have a kidney stone.. on the Lt.. .. My father had them.. I am about 13 weeks .. and have be following at ... but I am puking too much... and hurt too much...".. " I ve been puking so much today..." HPI HPI Patient is a 28 year old female who presents with complaints of severe left flank pain. Patient has approximately 13 weeks . Has had increased hematuria. Pain is localized mid flank on the left on percussion. Patient is morbidly obese. Patient does have a history of endometriosis. Patient considered a high risk and gets all her care at with primary and OB. Patient denies any trauma. Patient denies any travel. Patient denies any specific ill contacts. Patient denies any vaginal discharge. Patient poorly has had normal stools. Patient denies any history of STDs. Previous ultrasound in our location showed no hydronephrosis but did have hematuria. Review of Systems Review of Systems Constitutional: Denies fever or chills [] Eyes: Denies change in visual acuity, redness, or eye pain [] HENT: Denies nasal congestion or sore throat [] Respiratory: Denies cough or shortness of breath [] Cardiovascular: No additional information not addressed in HPI [] GI: Complaints of left flank abdominal pain, nausea, vomiting,. Denies bloody stools or diarrhea [] : Complains of hematuria [] Musculoskeletal: Denies back pain or joint pain [] Integument: Denies rash or skin lesions [] Neurologic: Denies headache, focal weakness or sensory changes [] Endocrine: Denies polyuria or polydipsia [] All other systems were reviewed and found to be within normal limits, except as documented in this note. Family History Family History Father has had frequent renal stones Current Medications Current Medications Current Medications Medications (Trade) Dose Ordered Sig/Gina Start Time Stop Time Status Last Admin Dose Admin Lactated Ringer's 1,000 ml @ 1,000 mls/hr Q1H 03/07/18 21:46 03/07/18 22:45 DC 12/10/18 22:03 1,000 MLS/HR Magnesium Hydroxide (Milk Of Magnesia) 2,400 mg 1X ONCE 03/07/18 23:45 03/07/18 23:46 DC 03/07/18 23:50 2,400 MG Ondansetron HCl (Zofran) 4 mg 1X ONCE 03/07/18 22:00 03/07/18 22:05 DC 03/07/18 22:03 4 MG Oxycodone/ Acetaminophen (Percocet 5/325) 2 tab 1X ONCE 03/07/18 22:00 03/07/18 22:05 DC 03/07/18 22:03 2 TAB Allergies Allergies Allergies Coded Allergies Type Severity Reaction Last Updated Verified chlorpromazine Allergy Intermediate 09/06/17 No dicyclomine Allergy Intermediate 09/06/17 No duloxetine Allergy Intermediate 09/06/17 No fentanyl Allergy Intermediate 09/06/17 No ketorolac Allergy Intermediate 09/06/17 No promethazine Allergy Intermediate 09/06/17 No tramadol Allergy Intermediate 09/06/17 No ibuprofen Allergy Unknown Hives 09/06/17 Yes Physical Exam Physical Exam Constitutional: In acute distress, non-toxic appearance. []Rates her pain as 10 out of 10. HENT: Normocephalic, atraumatic, bilateral external ears normal, oropharynx moist, no oral exudates, nose normal. [] Eyes: PERRLA, EOMI, conjunctiva normal, no discharge. [] Neck: Normal range of motion, no tenderness, supple, no stridor. [] Cardiovascular:Heart rate regular rhythm, no murmur [] Lungs & Thorax: Bilateral breath sounds equal at apex on auscultation [] Abdomen: Bowel sounds decreased, soft, left flank tenderness, gravid, no pulsatile masses. [] Morbidly obese. No external vaginal discharge. Distended. Old surgery scars. Skin: Warm, dry, no erythema, no rash. [] Back: No tenderness, no CVA tenderness. [] Extremities: No tenderness, no cyanosis, no clubbing, ROM intact, bilateral ankle edema. [] Neurologic: Alert and oriented X 3, normal motor function, normal sensory function, no focal deficits noted. []DTRs are +2 at patella and brachial Psychologic: Affect anxious, judgement normal, mood normal. [] Current Patient Data Vital Signs Vital Signs Date Time Temp Pulse Resp B/P (MAP) Pulse Ox O2 Delivery O2 Flow Rate FiO2 03/07/18 23:45 92 20 116/71 (86) 98 Room Air 03/07/18 21:25 98.6 Lab Results Laboratory Tests Test 03/07/18 21:42 White Blood Count 9.7 x10^3/uL (4.0-11.0) Red Blood Count 4.27 x10^6/uL (3.50-5.40) Hemoglobin 12.8 g/dL (12.0-15.5) Hematocrit 38.4 % (36.0-47.0) Mean Corpuscular Volume 90 fL (79-100) Mean Corpuscular Hemoglobin 30 pg (25-35) Mean Corpuscular Hemoglobin Concent 33 g/dL (31-37) Red Cell Distribution Width 15.0 % (11.5-14.5) H Platelet Count 264 x10^3/uL (140-400) Neutrophils (%) (Auto) 59 % (31-73) Lymphocytes (%) (Auto) 32 % (24-48) Monocytes (%) (Auto) 6 % (0-9) Eosinophils (%) (Auto) 3 % (0-3) Basophils (%) (Auto) 1 % (0-3) Neutrophils # (Auto) 5.7 x10^3uL (1.8-7.7) Lymphocytes # (Auto) 3.1 x10^3/uL (1.0-4.8) Monocytes # (Auto) 0.5 x10^3/uL (0.0-1.1) Eosinophils # (Auto) 0.3 x10^3/uL (0.0-0.7) Basophils # (Auto) 0.1 x10^3/uL (0.0-0.2) Prothrombin Time 10.1 SEC (9.4-11.4) Prothrombin Time INR 1.0 (0.9-1.1) PTT 24 SEC (23-33) Urine Collection Type Unknown Urine Color Yellow Urine Clarity Cloudy Urine pH 8.5 Urine Specific [place] 1.015 Urine Protein 30 mg/dl (NEG-TRACE) Urine Glucose (UA) Neg mg/dL (NEG) Urine Ketones (Stick) Neg mg/dL (NEG) Urine Blood Large (NEG) Urine Nitrite Neg (NEG) Urine Bilirubin Neg (NEG) Urine Urobilinogen Dipstick 0.2 mg/dL (0.2 mg/dL) Urine Leukocyte Esterase Neg (NEG) Urine RBC >40 /HPF (0-2) Urine WBC 0 /HPF (0-4) Urine Squamous Epithelial Cells Mod /LPF Urine Ammonium Biurate Crystals /HPF Urine Amorphous Sediment Present /HPF Urine Bacteria 0 /HPF (0-FEW) Maternal Serum HCG Beta Subunit 25525 mIU/mL (0-6) H Sodium Level 137 mmol/L (136-145) Potassium Level 3.4 mmol/L (3.5-5.1) L Chloride Level 102 mmol/L (98-107) Carbon Dioxide Level 26 mmol/L (21-32) Anion Gap 9 (6-14) Blood Urea Nitrogen 10 mg/dL (7-20) Creatinine 0.6 mg/dL (0.6-1.0) Estimated GFR (Cockcroft-Gault) 119.0 Glucose Level 87 mg/dL (70-99) Calcium Level 8.8 mg/dL (8.5-10.1) Total Bilirubin 0.2 mg/dL (0.2-1.0) Direct Bilirubin 0.1 mg/dL (0.0-0.2) Aspartate Amino Transferase (AST) 11 U/L (15-37) L Alanine Aminotransferase (ALT) 20 U/L (14-59) Alkaline Phosphatase 48 U/L (46-116) Total Protein 7.1 g/dL (6.4-8.2) Albumin 3.0 g/dL (3.4-5.0) L Lipase 121 U/L (73-393) Urine Opiates Screen Pos (NEG) Urine Methadone Screen Neg (NEG) Urine Barbiturates Neg (NEG) Urine Phencyclidine Screen Neg (NEG) Urine Amphetamine/Methamphetamine Neg (NEG) Urine Benzodiazepines Screen Neg (NEG) Urine Cocaine Screen Neg (NEG) Urine Cannabinoids Screen Neg (NEG) Urine Ethyl Alcohol Neg (NEG) EKG EKG [] Radiology/Procedures Radiology/Procedures Ultrasound shows an intrauterine with heart rate of 171, no hydronephrosis. Course & Med Decision Making Course & Med Decision Making Pertinent Labs and Imaging studies reviewed. (See chart for details). Patient to take Tylenol for pain. For marked pain may take Percocet up to 4 times a day. Patient to push fluids. Patient must follow-up with her primary care and OB at . No smoking. Take vitamins. Clear fluid diet for the next 2 days. Push fluids. May take Zofran 4 mg up 4 times a day. [] Final Impression Final Impression 1. Renal colic-suspect renal stone Lt. 2. Hyper emesis gravidarum 3. IUP-estimated 13 weeks [] 4. Morbid obesity 5. Dehydration 6. Blood type O+ 7. Hematuria and Crystals 8. BHCG= 55,055 today 9. Abd. Pain Dragon Disclaimer Dragon Disclaimer This electronic medical record was generated, in whole or in part, using a voice recognition dictation system. KAREN BACA MD Mar 07, 2018 21:34
[2018-03-07] MEDS ORDERED: IV RINGERS SOLUTION,LACTATED 1,000 ML IV SCH (21:46)
[2018-03-07] MEDS ORDERED: oxyCODONE/APAP 5/325 1 TAB TABLET PO ONE (22:00)
[2018-03-07] MEDS ORDERED: ONDANSETRON PF 4 MG/2 ML VIAL. IV ONE (22:00)
[2018-03-07 22:14] LABS: BASO # 0.1 x10^3/uL (0.0-0.2); BASO % 1 % (0-3); EOS # 0.3 x10^3/uL (0.0-0.7); EOS % 3 % (0-3); HEMATOCRIT 38.4 % (36.0-47.0); HEMOGLOBIN 12.8 g/dL (12.0-15.5); LYMPH # 3.1 x10^3/uL (1.0-4.8); LYMPH % 32 % (24-48); MEAN CORPUSCULAR HEMOGLOBIN 30 pg (25-35); MEAN CORPUSCULAR HGB CONC 33 g/dL (31-37); MEAN CORPUSCULAR VOLUME 90 fL (79-100); MONO # 0.5 x10^3/uL (0.0-1.1); MONO % 6 % (0-9); NEUT # 5.7 x10^3uL (1.8-7.7); NEUT % 59 % (31-73); PLATELET COUNT 264 x10^3/uL (140-400); RED BLOOD COUNT 4.27 x10^6/uL (3.50-5.40); WHITE BLOOD COUNT 9.7 x10^3/uL (4.0-11.0)
[2018-03-07 22:28] LABS: CALCIUM 8.8 mg/dL (8.5-10.1); CREATININE 0.6 mg/dL (0.6-1.0); DIRECT BILIRUBIN 0.1 mg/dL (0.0-0.2); POTASSIUM 3.4 mmol/L (3.5-5.1); TOTAL BILIRUBIN 0.2 mg/dL (0.2-1.0); TOTAL PROTEIN 7.1 g/dL (6.4-8.2)
[2018-03-07 22:43] LABS: BARBITURATES NEG (NEG); BENZODIAZEPINES NEG (NEG); CANNABINOIDS NEG (NEG); COCAINE NEG (NEG); METHADONE NEG (NEG); OPIATES POS (NEG); PHENCYCLIDINE NEG (NEG)
[2018-03-07 22:44] LABS: AMPHETAMINE/METHAMPHETAMINE NEG (NEG)
[2018-03-07 22:49] LABS: BILIRUBIN,URINE NEG (NEG); CLARITY,URINE CLOUDY; COLOR,URINE YELLOW; GLUCOSE,URINE NEG (NEG); UROBILINOGEN,URINE 0.2 mg/dL (0.2 mg/dL)
[2018-03-07 22:50] LABS: AMORPHOUS SEDIMENT,UR PRESENT /HPF; BACTERIA,URINE 0 /HPF (0-FEW); NITRITE,URINE NEG (NEG); RBC,URINE >40 /HPF (0-2); SQUAMOUS EPITHELIAL CELL,UR MOD /LPF; WBC,URINE 0 /HPF (0-4)
[2018-03-07] MEDS ORDERED: OXYC1TAB15 PO (23:42)
[2018-03-07] MEDS ORDERED: ONDA4TAB7 PO (23:42)
--- NOTE | 2018-03-07 23:42 | RAD ---
Indication: Left flank pain. TECHNIQUE: Grayscale and color Doppler images of the bilateral kidneys and bladder COMPARISON: None FINDINGS: The right kidney measures 12.3 x 6.0 x 5.6 cm (longitudinal, AP, transverse) without hydronephrosis. The left kidney measures 12.2 x 5.6 x 6.0 cm without hydronephrosis. heart rate 171 bpm. Urinary bladder is decompressed limiting optimal evaluation. Aorta and IVC are visualized due to large body habitus. IMPRESSION: No hydronephrosis. Electronically signed by: Jesse Ford DO (03/07/2018 11:38 PM) [facility]
[2018-03-07 23:45] VITALS: BP 116/71
[2018-03-07] MEDS ORDERED: MAGNESIUM HYDROXIDE 2,400 MG/30 ML ORAL.SUSP. PO ONE (23:45)
== END 2018-03-08 00:07 | disposition home or self-care (01) ==
LOC: ER 21:15
DX: O21.0 Mild hyperemesis gravidarum (principal); O26.891 Other specified pregnancy related conditions, first trimester; E66.01 Morbid (severe) obesity due to excess calories; E86.0 Dehydration; R31.9 Hematuria, unspecified; O16.1 Unspecified maternal hypertension, first trimester; O99.331 Smoking (tobacco) complicating pregnancy, first trimester; Z87.440 Personal history of urinary (tract) infections; Z87.442 Personal history of urinary calculi; Z3A.13 13 weeks gestation of pregnancy; Z68.44 Body mass index [BMI] 60.0-69.9, adult; Z90.89 Acquired absence of other organs; Z88.6 Allergy status to analgesic agent; Z88.8 Allergy status to other drugs, medicaments and biological substances; Z88.4 Allergy status to anesthetic agent
CPT/HCPCS: 36415; 76770; 80048; 80076; 80307; 81001; 83690; 84702; 85025; 85610; 85730; 86900; 86901; 96361; 96374; 99284; J2405; J7120

== ENCOUNTER 2018-03-23 21:12 | Emergency (ER) | payer SELFPAY ==
[~2018-03-23 21:12] MED LIST changes: +OXYC1TAB15 PO
[2018-03-23 21:27] VITALS: BP 149/99
[2018-03-23] MEDS ORDERED: ONDANSETRON PF 4 MG/2 ML VIAL. IV ONE (22:00)
[2018-03-23] MEDS ORDERED: IV NORMAL SALINE 1,000ML 1,000 ML IV ONE (22:00)
[2018-03-23] MEDS ORDERED: HYDROcodone/APAP 7.5/325MG 1 TAB TABLET PO ONE (22:00)
--- NOTE | 2018-03-23 22:01 | PHYS DOC ---
Past History Past Medical History: Endometriosis Past Surgical History: Cholecystectomy Smoking: Cigarettes Alcohol Use: None Drug Use: None Adult General Chief Complaint Chief Complaint: FLANK PAIN HPI HPI 28-year-old female who is 15 weeks presents with right flank pain and hematuria. The patient's long history of kidney stones. She was diagnosed with a kidney stone a few weeks ago in this facility. She tells me that after discharge, she passed stone within 3 days and everything went back to normal. She talked with her urologist who did not think she needed to be seen since her symptoms resolved. Today, the patient started to have right flank pain again. She describes as moderate in intensity. He feels somewhat her previous stones. She also has developed hematuria again. She is concern for another stone. She took 1 g of Tylenol 4 hours prior to arrival. She denies fever or chills. Review of Systems Review of Systems Constitutional: Denies fever or chills [] Eyes: Denies change in visual acuity, redness, or eye pain [] HENT: Denies nasal congestion or sore throat [] Respiratory: Denies cough or shortness of breath [] Cardiovascular: No additional information not addressed in HPI [] GI: Denies abdominal pain, nausea, vomiting, bloody stools or diarrhea [] : Dysuria and hematuria [] Musculoskeletal: Right flank pain[] Integument: Denies rash or skin lesions [] Neurologic: Denies headache, focal weakness or sensory changes [] Endocrine: Denies polyuria or polydipsia [] All other systems were reviewed and found to be within normal limits, except as documented in this note. Current Medications Current Medications Current Medications Medications (Trade) Dose Ordered Sig/Gina Start Time Stop Time Status Last Admin Dose Admin Ondansetron HCl (Zofran) 4 mg 1X ONCE 03/23/18 22:00 03/23/18 22:01 UNV Sodium Chloride 1,000 ml @ 1,000 mls/hr 1X ONCE 03/23/18 22:00 03/23/18 22:59 UNV Allergies Allergies Allergies Coded Allergies Type Severity Reaction Last Updated Verified chlorpromazine Allergy Intermediate 09/06/17 No dicyclomine Allergy Intermediate 09/06/17 No duloxetine Allergy Intermediate 09/06/17 No fentanyl Allergy Intermediate 09/06/17 No ketorolac Allergy Intermediate 09/06/17 No promethazine Allergy Intermediate 09/06/17 No tramadol Allergy Intermediate 09/06/17 No ibuprofen Allergy Unknown Hives 09/06/17 Yes Physical Exam Physical Exam Constitutional: Well developed, morbid obesity, well nourished, mild acute distress, non-toxic appearance. [] HENT: Normocephalic, atraumatic, bilateral external ears normal, oropharynx moist, no oral exudates, nose normal. [] Eyes: PERRLA, EOMI, conjunctiva normal, no discharge. [] Neck: Normal range of motion, no tenderness, supple, no stridor. [] Cardiovascular:Heart rate regular rhythm, no murmur [] Lungs & Thorax: Bilateral breath sounds clear to auscultation [] Abdomen: Bowel sounds normal, soft, no tenderness, no masses, no pulsatile masses. [] Skin: Warm, dry, no erythema, no rash. [] Back: No tenderness, moderate right CVA tenderness. [] Extremities: No tenderness, no cyanosis, no clubbing, ROM intact, no edema. [] Neurologic: Alert and oriented X 3, normal motor function, normal sensory function, no focal deficits noted. [] Psychologic: Affect normal, judgement normal, mood normal. [] Current Patient Data Vital Signs Vital Signs Date Time Temp Pulse Resp B/P (MAP) Pulse Ox O2 Delivery O2 Flow Rate FiO2 03/23/18 21:27 98.1 113 20 97 Room Air EKG EKG [] Radiology/Procedures Radiology/Procedures [] Impressions: EXAM: Renal sonogram. HISTORY: Nephrolithiasis. Right flank pain. TECHNIQUE: Sonographic imaging the kidneys and bladder was performed. COMPARISON: 03/07/2018. FINDINGS: The right kidney measures 11.8 cm [id number] and the left kidney measures 12.5 cm [id number]. There is no solid or cystic renal lesion. There is no hydronephrosis. The ureteral jets are both seen. The bladder is unremarkable. The aorta and inferior vena cava are not formally assessed. IMPRESSION: Sonographically unremarkable kidneys. Electronically signed by: Marycarmen Cerda MD (03/23/2018 10:54 PM) [facility] DICTATED AND SIGNED BY: MARYCARMEN CERDA MD DATE: 03/23/18 [id number] CC: YASMINE CONNOR DO; PCP,NO Course & Med Decision Making Course & Med Decision Making Pertinent Labs and Imaging studies reviewed. (See chart for details) The patient's labs are unremarkable. Her urinalysis does show hematuria but no infection. Ultrasound of the kidneys does not show hydronephrosis or stone. It' s likely the patient passed a stone to the pain and hematuria. I will discharge her with a short course of [place]ansom 5/325 she continues to have pain for the next day. Her symptoms do not improve she will follow-up with urology again. She is stable for discharge at this time. [] Dragon Disclaimer Dragon Disclaimer This electronic medical record was generated, in whole or in part, using a voice recognition dictation system. Departure Departure: Referrals: PCP,MANDI (PCP) YASMINE CONNOR DO Mar 23, 2018 22:01
[2018-03-23 22:02] LABS: BASO % 0 % (0-3); EOS # 0.3 x10^3/uL (0.0-0.7); EOS % 2 % (0-3); LYMPH # 4.4 x10^3/uL (1.0-4.8); LYMPH % 34 % (24-48); MEAN CORPUSCULAR HEMOGLOBIN 30 pg (25-35); MEAN CORPUSCULAR HGB CONC 33 g/dL (31-37); MEAN CORPUSCULAR VOLUME 91 fL (79-100); MONO # 0.6 x10^3/uL (0.0-1.1); MONO % 5 % (0-9); NEUT # 7.7 x10^3uL (1.8-7.7); NEUT % 59 % (31-73); PLATELET COUNT 284 x10^3/uL (140-400); RED BLOOD COUNT 4.29 x10^6/uL (3.50-5.40); RED CELL DISTRIBUTION WIDTH 15.2 % (11.5-14.5)
[2018-03-23 22:15] LABS: ALBUMIN/GLOBULIN RATIO 0.8 (1.0-1.7); CALCIUM 9.2 mg/dL (8.5-10.1); CREATININE 0.5 mg/dL (0.6-1.0); GFR 146.9; TOTAL BILIRUBIN 0.1 mg/dL (0.2-1.0); TOTAL PROTEIN 6.8 g/dL (6.4-8.2)
[2018-03-23 22:16] LABS: POTASSIUM 4.3 mmol/L (3.5-5.1)
[2018-03-23 22:21] LABS: BACTERIA,URINE FEW /HPF (0-FEW); BILIRUBIN,URINE NEG (NEG); CLARITY,URINE CLOUDY; COLOR,URINE YELLOW; GLUCOSE,URINE NEG (NEG); NITRITE,URINE NEG (NEG); RBC,URINE >40 /HPF (0-2); SQUAMOUS EPITHELIAL CELL,UR MOD /LPF; UROBILINOGEN,URINE 0.2 mg/dL (0.2 mg/dL); WBC,URINE OCC /HPF (0-4)
--- NOTE | 2018-03-23 22:58 | RAD ---
EXAM: Renal sonogram. HISTORY: Nephrolithiasis. Right flank pain. TECHNIQUE: Sonographic imaging the kidneys and bladder was performed. COMPARISON: 03/07/2018. FINDINGS: The right kidney measures 11.8 cm [id number] and the left kidney measures 12.5 cm [id number]. There is no solid or cystic renal lesion. There is no hydronephrosis. The ureteral jets are both seen. The bladder is unremarkable. The aorta and inferior vena cava are not formally assessed. IMPRESSION: Sonographically unremarkable kidneys. Electronically signed by: Marycarmen Cerda MD (03/23/2018 10:54 PM) [facility]
[2018-03-23] MEDS ORDERED: HYDR-3165 PO (23:05)
== END 2018-03-23 23:15 | disposition home or self-care (01) ==
LOC: ER 21:12
DX: O26.892 Other specified pregnancy related conditions, second trimester (principal); R31.9 Hematuria, unspecified; R30.0 Dysuria; O99.332 Smoking (tobacco) complicating pregnancy, second trimester; Z90.49 Acquired absence of other specified parts of digestive tract; Z3A.15 15 weeks gestation of pregnancy; Z88.6 Allergy status to analgesic agent; Z88.4 Allergy status to anesthetic agent; Z88.8 Allergy status to other drugs, medicaments and biological substances
CPT/HCPCS: 36415; 76770; 80053; 81001; 85025; 96374; 99284; J2405; J7030

== ENCOUNTER 2018-03-30 10:32 | Emergency (ER) | payer SELFPAY ==
[~2018-03-30] VITALS: Ht 162.6 cm; Wt 170.0 kg
[2018-03-30 10:51] VITALS: BP 133/72
== END 2018-03-30 10:56 | disposition left against medical advice (07) ==
LOC: ER 10:32
DX: O26.892 Other specified pregnancy related conditions, second trimester (principal); R10.9 Unspecified abdominal pain; Z3A.17 17 weeks gestation of pregnancy; Z53.21 Procedure and treatment not carried out due to patient leaving prior to being seen by health care provider

== ENCOUNTER 2018-04-12 20:48 | Emergency (ER) | payer SELFPAY ==
[~2018-04-12] VITALS: Ht 162.6 cm; Wt 170.0 kg
[2018-04-12 21:06] VITALS: BP 172/115
--- NOTE | 2018-04-12 22:55 | PHYS DOC ---
Past History Past Medical History: Endometriosis Past Surgical History: Cholecystectomy Smoking: Cigarettes Alcohol Use: None Drug Use: None Adult General Chief Complaint Chief Complaint: FLANK PAIN HPI HPI Patient is a 28 year old female who presents with complaint of left flank pain. Patient is had multiple visits to this emergency department. The patient is currently 19 weeks and has documented history of kidney stones. The patient presents to the emergency department with complaints of severe pain. Has had a recent ultrasound from this emergency department that showed normal kidneys and no hydronephrosis. She states however that she was seen in [facility] last week and had a study done which showed that she did have a kidney stone as well as an infection. The patient states that she was told she needed to be transferred at that time, but she stated that she did not feel bad and states she signed out AGAINST MEDICAL ADVICE from the emergency department. Patient however states that over the past 2 days she has had worsening pain to her left flank and thus came in for further evaluation. Patient has not followed up with her urologist as she states that she had passed her stone before and was told that she would not need to follow-up. Patient however now having severe pain and is requesting treatment for her symptoms. She states that she has scheduled an appointment for this Wednesday and that "I just need something to help give me some relief for tonight until I can get to my appointment." Review of Systems Review of Systems Constitutional: Denies fever or chills [] Eyes: Denies change in visual acuity, redness, or eye pain [] HENT: Denies nasal congestion or sore throat [] Respiratory: Denies cough or shortness of breath [] Cardiovascular: Denies chest pain or edema[] GI: Nausea, vomiting, denies bloody stools or diarrhea [] : Left flank pain[] Musculoskeletal: Denies back pain or joint pain [] Integument: Denies rash or skin lesions [] Neurologic: Denies headache, focal weakness or sensory changes [] All other systems were reviewed and found to be within normal limits, except as documented in this note. Allergies Allergies Allergies Coded Allergies Type Severity Reaction Last Updated Verified chlorpromazine Allergy Intermediate 09/06/17 No dicyclomine Allergy Intermediate 09/06/17 No duloxetine Allergy Intermediate 09/06/17 No fentanyl Allergy Intermediate 09/06/17 No ketorolac Allergy Intermediate 09/06/17 No promethazine Allergy Intermediate 09/06/17 No tramadol Allergy Intermediate 09/06/17 No ibuprofen Allergy Unknown Hives 09/06/17 Yes Physical Exam Physical Exam Constitutional: Alert, obese, afebrile, appears in moderate discomfort. [] HENT: Normocephalic, atraumatic, bilateral external ears normal, oropharynx moist, no oral exudates, nose normal. [] Eyes: PERRLA, EOMI, conjunctiva normal, no discharge. [] Neck: Normal range of motion, no tenderness, supple, no stridor. [] Cardiovascular:Heart rate regular rhythm, no murmur [] Lungs & Thorax: Bilateral breath sounds clear to auscultation [] Abdomen: Bowel sounds normal, soft, no tenderness, no masses, no pulsatile masses. [] Skin: Warm, dry, no erythema, no rash. [] Back: No midline tenderness, no CVA tenderness to palpation, no flank ecchymosis. [] Extremities: No tenderness, no cyanosis, no clubbing, ROM intact, no edema. [] Neurologic: Alert and oriented X 3, normal motor function, normal sensory function, no focal deficits noted. [] Current Patient Data Vital Signs Vital Signs Date Time Temp Pulse Resp B/P (MAP) Pulse Ox O2 Delivery O2 Flow Rate FiO2 04/12/18 21:06 98.4 108 18 99 Room Air Lab Results none performed EKG EKG not performed[] Radiology/Procedures Radiology/Procedures not performed[] Course & Med Decision Making Course & Med Decision Making Pertinent Labs and Imaging studies reviewed. (See chart for details) Given the medical complexity of the patient having kidney stones with multiple visits as well as being 19 weeks , I feel that the patient likely needs a higher level of care for further treatment. Of concern is the amount of narcotic medication that the patient has received, as continued exposure is increasing risk of narcotic dependency during . Spoke with the patient regarding these concerns and stated that the patient likely needs to be transferred to a higher level of care for further treatment. After speaking with the patient, she stated that she did not want to be transferred. I offered to do repeat diagnostic testing including blood work, urinalysis, and ultrasound in the emergency department, but stated that I was concerned about giving any narcotic medication at this time. The patient stated that she did not want to have this done and that she wants to go home and follow-up tomorrow. Due to concern for increasing acuity of the patient's condition, did not feel comfortable with the patient being discharged and stated that she would need to sign out AGAINST MEDICAL ADVICE. I explained to the patient that this may increase complications with her current condition including worsening pain or even risk to her . Patient voiced understanding and stated that she did not want any further evaluation or treatment. Dragon Disclaimer Dragon Disclaimer This electronic medical record was generated, in whole or in part, using a voice recognition dictation system. Departure Departure: Impression: Primary Impression: Left flank pain Disposition: AGAINST MEDICAL ADVICE Condition: STABLE Referrals: PCP,NO (PCP) Patient Instructions: Flank Pain Additional Instructions: Follow-up as soon as possible with your primary doctor for reevaluation as your condition was unable to be fully assessed at today's visit. Return to the emergency department for any worsening symptoms. SAMANTHA CORTES MD Apr 12, 2018 22:55
== END 2018-04-12 22:59 | disposition left against medical advice (07) ==
LOC: ER 20:48
DX: O26.891 Other specified pregnancy related conditions, first trimester (principal); O21.9 Vomiting of pregnancy, unspecified; R10.9 Unspecified abdominal pain; O99.332 Smoking (tobacco) complicating pregnancy, second trimester; Z3A.19 19 weeks gestation of pregnancy; Z88.6 Allergy status to analgesic agent; Z88.8 Allergy status to other drugs, medicaments and biological substances; Z88.4 Allergy status to anesthetic agent; Z88.1 Allergy status to other antibiotic agents
CPT/HCPCS: 99281

== ENCOUNTER 2018-05-07 19:25 | Emergency (ER) | payer SELFPAY ==
[~2018-05-07] VITALS: Ht 162.6 cm; Wt 167.8 kg
--- NOTE | 2018-05-07 19:44 | ED.ADGEN ---
Past History Past Medical History: Endometriosis Past Surgical History: Cholecystectomy Smoking: Cigarettes Alcohol Use: None Drug Use: None Adult General Chief Complaint Chief Complaint "..I am having back pain.. the baby is fine... it just where I fell yesterday ... about 830.. pain in right there in the muscle.. no contractions.. no bleeding.. I am fine in my abd... it just where I hit my back.. I have a follow up at in 3 days... for this ..." [facility] HPI Patient is a 28 year old female who presents with above hx and complaints contusion to lower back. Pt. fall was yesterday 8:30 hrs. Pt. denies problems with defecation, urination or ambulation. Pt. localized pain to Rt. lower sacral and lumbar area. Pt. has hx DJD. Pt. denies any vaginal bleeding. Currently child is active. heart rate at 160.. Patient has been ambulatory since falling. No lower abdomen pain. No vaginal discharge or bleeding. Patient currently on scheduled to see [employer] at high risk because of obesity. Patient has been taking her vitamins. This is patient's first . No hx immunosuppression. No travel. Review of Systems Review of Systems Constitutional: Denies fever or chills [] Eyes: Denies change in visual acuity, redness, or eye pain [] HENT: Denies nasal congestion or sore throat [] Respiratory: Denies cough or shortness of breath [] Cardiovascular: No additional information not addressed in [facility] [] GI: Denies abdominal pain, nausea, vomiting, bloody stools or diarrhea [] : Denies dysuria or hematuria [] Musculoskeletal: Complaints of back pain Integument: Denies rash or skin lesions [] Neurologic: Denies headache, focal weakness or sensory changes [] Endocrine: Denies polyuria or polydipsia [] All other systems were reviewed and found to be within normal limits, except as documented in this note. Family History Family History Noncontributory Current Medications Current Medications Current Medications Medications (Trade) Dose Ordered Sig/Gina Start Time Stop Time Status Last Admin Dose Admin Oxycodone/ Acetaminophen (Percocet 5/325) 2 tab 1X ONCE 05/07/18 21:30 05/07/18 21:31 DC 05/07/18 21:40 2 TAB Allergies Allergies Allergies Coded Allergies Type Severity Reaction Last Updated Verified chlorpromazine Allergy Intermediate 05/07/18 No dicyclomine Allergy Intermediate 05/07/18 No duloxetine Allergy Intermediate 05/07/18 No fentanyl Allergy Intermediate 05/07/18 No ibuprofen Allergy Intermediate Hives 05/07/18 Yes ketorolac Allergy Intermediate 05/07/18 No promethazine Allergy Intermediate 05/07/18 No tramadol Allergy Intermediate 05/07/18 No Physical Exam Physical Exam Constitutional: Moderate acute distress, non-toxic appearance. [] HENT: Normocephalic, atraumatic, bilateral external ears normal, oropharynx moist, no oral exudates, nose normal. [] Eyes: PERRLA, EOMI, conjunctiva normal, no discharge. [] Neck: Normal range of motion, no tenderness, supple, no stridor. [] Cardiovascular:Heart rate regular rhythm, no murmur [] Lungs & Thorax: Bilateral breath sounds clear to auscultation [] Abdomen: Bowel sounds normal, soft, no tenderness, no masses, no pulsatile masses. []Morbidly obese. FHR 160. movement. No saddle loss. She declines rectal exam at this time. Patient declines pelvic exam at this time Skin: Warm, dry, no erythema, no rash. [] Back: Contusions Rt. lower sacral, mild to moderate tenderness, no CVA tenderness. [] Extremities: No tenderness, no cyanosis, no clubbing, ROM intact, ankle edema. [ ] Neurologic: Alert and oriented X 3, normal motor function, normal sensory function, no focal deficits noted. []DTR + 2 patella. Psychologic: Affect anxious, judgement normal, mood normal. [] Current Patient Data Vital Signs Vital Signs Date Time Temp Pulse Resp B/P (MAP) Pulse Ox O2 Delivery O2 Flow Rate FiO2 05/07/18 22:30 98.3 103 22 128/83 (98) 96 Room Air Lab Results Laboratory Tests Test 05/07/18 21:30 05/07/18 21:40 Urine Collection Type Unknown Urine Color Yellow Urine Clarity Cloudy Urine pH 5.5 Urine Specific [place] >=1.030 Urine Protein 30 mg/dl (NEG-TRACE) Urine Glucose (UA) Neg mg/dL (NEG) Urine Ketones (Stick) Trace mg/dL (NEG) Urine Blood Mod (NEG) Urine Nitrite Neg (NEG) Urine Bilirubin Neg (NEG) Urine Urobilinogen Dipstick 0.2 mg/dL (0.2 mg/dL) Urine Leukocyte Esterase Neg (NEG) Urine RBC 20-40 /HPF (0-2) Urine WBC Occ /HPF (0-4) Urine Squamous Epithelial Cells Many /LPF Urine Bacteria Few /HPF (0-FEW) Urine Mucus Slight /LPF Urine Opiates Screen Pos (NEG) Urine Methadone Screen Neg (NEG) Urine Barbiturates Neg (NEG) Urine Phencyclidine Screen Neg (NEG) Urine Amphetamine/Methamphetamine Neg (NEG) Urine Benzodiazepines Screen Neg (NEG) Urine Cocaine Screen Neg (NEG) Urine Cannabinoids Screen Neg (NEG) Urine Ethyl Alcohol Neg (NEG) POC Urine HCG, Qualitative hcg positive (Negative) EKG EKG [] Radiology/Procedures Radiology/Procedures [] Course & Med Decision Making Course & Med Decision Making Pertinent Labs and Imaging studies reviewed. (See chart for details). Discussed options of work up for her fall. Pt. declines labs or US at this time. States pain in only where she hit her back. Pt. to keep follow up with [facility] for her . May take Percocet up to 4 times a day. Patient return if she wishes to have further workup. Must follow-up. Re-exam at 2230. Pt. reports marked improvement of back pain. Patient declines further work up at this time. [] Final Impression Final Impression 1. Back Pain- contusion 2. Hx 22 weeks gravid 3. Morbid Obesity 4. Hx. of Kidney stones 5. Hx. endometriosis 6. Hx. DJD 7. Hematuria Dragon Disclaimer Dragon Disclaimer This electronic medical record was generated, in whole or in part, using a voice recognition dictation system. Dragon Disclaimer This chart was dictated in whole or in part using Voice Recognition software in a busy, high-work load, and often noisy Emergency Department environment. It may contain unintended and wholly unrecognized errors or omissions. Discharge Summary Visit Information Final Diagnosis Problems Medical Problems: (1) Contusion, back Status: Acute Brief Hospital Course Allergies Allergies Coded Allergies Type Severity Reaction Last Updated Verified chlorpromazine Allergy Intermediate 05/07/18 No dicyclomine Allergy Intermediate 05/07/18 No duloxetine Allergy Intermediate 05/07/18 No fentanyl Allergy Intermediate 05/07/18 No ibuprofen Allergy Intermediate Hives 05/07/18 Yes ketorolac Allergy Intermediate 05/07/18 No promethazine Allergy Intermediate 05/07/18 No tramadol Allergy Intermediate 05/07/18 No Vital Signs Vital Signs Date Time Temp Pulse Resp B/P (MAP) Pulse Ox O2 Delivery O2 Flow Rate FiO2 05/07/18 22:30 98.3 103 22 128/83 (98) 96 Room Air Lab Results Laboratory Tests Test 05/07/18 21:30 05/07/18 21:40 Urine Collection Type Unknown Urine Color Yellow Urine Clarity Cloudy Urine pH 5.5 Urine Specific [place] >=1.030 Urine Protein 30 mg/dl (NEG-TRACE) Urine Glucose (UA) Neg mg/dL (NEG) Urine Ketones (Stick) Trace mg/dL (NEG) Urine Blood Mod (NEG) Urine Nitrite Neg (NEG) Urine Bilirubin Neg (NEG) Urine Urobilinogen Dipstick 0.2 mg/dL (0.2 mg/dL) Urine Leukocyte Esterase Neg (NEG) Urine RBC 20-40 /HPF (0-2) Urine WBC Occ /HPF (0-4) Urine Squamous Epithelial Cells Many /LPF Urine Bacteria Few /HPF (0-FEW) Urine Mucus Slight /LPF Urine Opiates Screen Pos (NEG) Urine Methadone Screen Neg (NEG) Urine Barbiturates Neg (NEG) Urine Phencyclidine Screen Neg (NEG) Urine Amphetamine/Methamphetamine Neg (NEG) Urine Benzodiazepines Screen Neg (NEG) Urine Cocaine Screen Neg (NEG) Urine Cannabinoids Screen Neg (NEG) Urine Ethyl Alcohol Neg (NEG) Bedside Urine HCG, Qualitative hcg positive (Negative) Brief Hospital Course Ms. Orozco is a 28 old female who presented with back contusion from fall. Hx 22 weeks gravid. Discharge Information Condition at Discharge: Improved, Stable Disposition/Orders: D/C to Home Dischare Medications Current Medications Oxycodone/ Acetaminophen (Percocet 5/325) 2 tab 1X ONCE PO Last administered on 05/07/18at 21:40; Admin Dose 2 TAB; Start 05/07/18 at 21:30; Stop 05/07/18 at 21: 31; Status DC Active Scripts Active Percocet 5-325 Mg Tablet (Oxycodone Hcl/Acetaminophen) 1 Each Tablet 1 Tab PO PRN Q6HRS PRN Zofran Odt (Ondansetron) 8 Mg Tab.rapdis 8 Mg PO QIDPRN PRN KAREN BACA MD May 07, 2018 19:44
[2018-05-07] MEDS ORDERED: OXYC1TAB15 PO (21:17)
[2018-05-07] MEDS ORDERED: oxyCODONE/APAP 5/325 1 TAB TABLET PO ONE (21:30)
[2018-05-07 21:49] LABS: BILIRUBIN,URINE NEG (NEG); CLARITY,URINE CLOUDY; COLOR,URINE YELLOW; GLUCOSE,URINE NEG (NEG)
[2018-05-07 21:50] LABS: BACTERIA,URINE FEW /HPF (0-FEW); NITRITE,URINE NEG (NEG); RBC,URINE 20-40 /HPF (0-2); SQUAMOUS EPITHELIAL CELL,UR MANY /LPF; UROBILINOGEN,URINE 0.2 mg/dL (0.2 mg/dL); WBC,URINE OCC /HPF (0-4)
[2018-05-07 21:53] LABS: AMPHETAMINE/METHAMPHETAMINE NEG (NEG); BARBITURATES NEG (NEG); BENZODIAZEPINES NEG (NEG); CANNABINOIDS NEG (NEG); COCAINE NEG (NEG); METHADONE NEG (NEG); OPIATES POS (NEG); PHENCYCLIDINE NEG (NEG)
[2018-05-07 22:30] VITALS: BP 128/83
== END 2018-05-07 22:33 | disposition home or self-care (01) ==
LOC: ER 19:25
DX: O9A.212 Injury, poisoning and certain other consequences of external causes complicating pregnancy, second trimester (principal); S30.0XXA Contusion of lower back and pelvis, initial encounter; E66.01 Morbid (severe) obesity due to excess calories; O99.212 Obesity complicating pregnancy, second trimester; O26.832 Pregnancy related renal disease, second trimester; N28.9 Disorder of kidney and ureter, unspecified; R31.9 Hematuria, unspecified; O99.332 Smoking (tobacco) complicating pregnancy, second trimester; Z87.442 Personal history of urinary calculi; Z3A.22 22 weeks gestation of pregnancy; Z88.6 Allergy status to analgesic agent; Z88.8 Allergy status to other drugs, medicaments and biological substances; W18.09XA Striking against other object with subsequent fall, initial encounter; Y93.89 Activity, other specified; Y92.89 Other specified places as the place of occurrence of the external cause; Y99.8 Other external cause status
CPT/HCPCS: 36415; 80307; 81001; 81025; 99283

== ENCOUNTER 2018-05-21 19:05 | Emergency (ER) | payer SELFPAY ==
[~2018-05-21] VITALS: Ht 162.6 cm; Wt 172.4 kg
[2018-05-21] MEDS ORDERED: ONDANSETRON ODT 4 MG TAB.RAPDIS PO ONE (20:00)
[2018-05-21] MEDS ORDERED: oxyCODONE/APAP 7.5/325 1 TAB TABLET PO ONE (20:00)
[2018-05-21] MEDS ORDERED: ONDA4TAB7 PO (20:12)
[2018-05-21] MEDS ORDERED: OXYC1TAB6 PO (20:12)
--- NOTE | 2018-05-21 20:13 | PHYS DOC ---
Past History Past Medical History: Endometriosis, Kidney Stones Past Surgical History: Cholecystectomy, Other Smoking: Cigarettes Alcohol Use: None Drug Use: None Adult General Chief Complaint Chief Complaint: BACK PAIN OR INJURY HPI HPI Patient is a 28-year-old female who presents with complaint of severe lower back pain and nausea. Patient states that she is 24 weeks . She states that she has a history of herniated disks in her back and states that her back pain has been stable but earlier today she had been outside and her dog had run between her legs and she caught herself and twisted her back. She states that since then she has had severe pain in her lower back. Pain is nonradiating and she has no loss of bowel or bladder function. She rates pain at a 9 out of 10. She states the pain has been so bad that she feels nauseated. She states that she has been scheduled to see an orthopedist for her back but states that they' re trying to wait until after she delivers her child before looking at surgical options. Patient states the pain is worsened with movement. Review of Systems Review of Systems Constitutional: Denies fever or chills [] Respiratory: Denies cough or shortness of breath [] Cardiovascular: No additional information not addressed in HPI [] GI: Denies abdominal pain. Positive nausea without vomiting. [] : Denies dysuria or hematuria [] Musculoskeletal: Complains of lower back pain [] Neurologic: Denies headache, focal weakness or sensory changes [] Current Medications Current Medications Current Medications Medications (Trade) Dose Ordered Sig/Gina Start Time Stop Time Status Last Admin Dose Admin Ondansetron HCl (Zofran Odt) 4 mg 1X ONCE 05/21/18 20:00 05/21/18 20:01 DC 05/21/18 19:57 4 MG Oxycodone/ Acetaminophen (Percocet 7.5/ 325) 1 tab 1X ONCE 05/21/18 20:00 05/21/18 20:01 DC 05/21/18 19:56 1 TAB Allergies Allergies Allergies Coded Allergies Type Severity Reaction Last Updated Verified chlorpromazine Allergy Intermediate 05/07/18 No dicyclomine Allergy Intermediate 05/07/18 No duloxetine Allergy Intermediate 05/07/18 No fentanyl Allergy Intermediate 05/07/18 No ibuprofen Allergy Intermediate Hives 05/07/18 Yes ketorolac Allergy Intermediate 05/07/18 No promethazine Allergy Intermediate 05/07/18 No tramadol Allergy Intermediate 05/21/18 No Physical Exam Physical Exam Constitutional: Well developed, well nourished, no acute distress, non-toxic appearance. [] Cardiovascular: Regular rate and rhythm[] Lungs & Thorax: Bilateral breath sounds clear to auscultation [] Abdomen: Bowel sounds normal, soft, no tenderness. [] Back: There is some tenderness to palpation around the lower lumbar spine centrally extending down to lumbosacral junction. [] Neurologic: Alert and oriented X 3, no focal deficits noted. [] Current Patient Data Vital Signs Vital Signs Date Time Temp Pulse Resp B/P (MAP) Pulse Ox O2 Delivery O2 Flow Rate FiO2 05/21/18 19:56 16 EKG EKG [] Radiology/Procedures Radiology/Procedures [] Course & Med Decision Making Course & Med Decision Making Pertinent Labs and Imaging studies reviewed. (See chart for details) [] Dragon Disclaimer Dragon Disclaimer This electronic medical record was generated, in whole or in part, using a voice recognition dictation system. Departure Departure: Impression: Primary Impression: Acute exacerbation of chronic low back pain Disposition: 01 HOME, SELF-CARE Condition: STABLE Referrals: PCP,NO (PCP) Patient Instructions: Back Pain, Adult Scripts Ondansetron Hcl (ZOFRAN) 4 Mg Tablet 4 MG PO Q6HRS PRN for NAUSEA, #10 TAB Prov: MYKE LOPEZ Jr. DO 05/21/18 Oxycodone Hcl/Acetaminophen (OXYCODON-ACETAMINOPHEN 2.5-325) 1 Each Tablet 1 EACH PO Q8HRS PRN for PAIN, #10 TAB Prov: MYKE LOPEZ Jr. DO 05/21/18 MYKE LOPEZ Jr. DO May 21, 2018 20:13
[2018-05-21 20:18] VITALS: BP 150/103
== END 2018-05-21 20:20 | disposition home or self-care (01) ==
LOC: ER 19:05
DX: O26.892 Other specified pregnancy related conditions, second trimester (principal); M54.5 Low back pain; G89.29 Other chronic pain; O99.332 Smoking (tobacco) complicating pregnancy, second trimester; Z90.49 Acquired absence of other specified parts of digestive tract; Z88.8 Allergy status to other drugs, medicaments and biological substances; Z88.6 Allergy status to analgesic agent; X50.9XXA Other and unspecified overexertion or strenuous movements or postures, initial encounter; Y93.89 Activity, other specified; Y92.89 Other specified places as the place of occurrence of the external cause; Y99.8 Other external cause status
CPT/HCPCS: 99283; Q0162

== ENCOUNTER 2018-06-13 00:56 | Emergency (ER) | payer SELFPAY ==
[~2018-06-13] VITALS: Ht 162.6 cm; Wt 180.0 kg
[~2018-06-13 00:56] MED LIST changes: +OXYC1TAB6 PO
[2018-06-13] MEDS ORDERED: ACET-704 PO (01:29)
--- NOTE | 2018-06-13 01:33 | PHYS DOC ---
Adult General Chief Complaint Chief Complaint Back pain HPI HPI 28 years old female who is 26 weeks with morbid obesity present to the emergency department with chronic back pain that got worse after moving furniture at home she is requesting oxycodone or hydrocodone stated in best only thing works for me, pain is similar to the previous episode she had described as a sharp constant pain rated 10 out of 10 no weakness or numbness she has full control of her stool and bladder Review of Systems Review of Systems HENT: Denies nasal congestion or sore throat [] Respiratory: Denies cough or shortness of breath [] Cardiovascular: No additional information not addressed in HPI [] GI: Denies abdominal pain, nausea, vomiting, bloody stools or diarrhea [] : Denies dysuria or hematuria [] Musculoskeletal: Denies back pain or joint pain [] Integument: Denies rash or skin lesions [] Neurologic: Denies headache, focal weakness or sensory changes [] Allergies Allergies Allergies Coded Allergies Type Severity Reaction Last Updated Verified chlorpromazine Allergy Intermediate 05/07/18 No dicyclomine Allergy Intermediate 05/07/18 No duloxetine Allergy Intermediate 05/07/18 No fentanyl Allergy Intermediate 05/07/18 No ibuprofen Allergy Intermediate Hives 05/07/18 Yes ketorolac Allergy Intermediate 05/07/18 No promethazine Allergy Intermediate 05/07/18 No tramadol Allergy Intermediate 05/21/18 No Physical Exam Physical Exam Constitutional: Well developed, well nourished, no acute distress, non-toxic appearance. [] HENT: Normocephalic, atraumatic, bilateral external ears normal, oropharynx moist, no oral exudates, nose normal. [] Eyes: PERRLA, EOMI, conjunctiva normal, no discharge. [] Neck: Normal range of motion, no tenderness, supple, no stridor. [] Cardiovascular:Heart rate regular rhythm, no murmur [] Lungs & Thorax: Bilateral breath sounds clear to auscultation [] Abdomen: Bowel sounds normal, soft, no tenderness, no masses, no pulsatile masses. [] Skin: Warm, dry, no erythema, no rash. [] Back: Lumbar spine tenderness, no CVA tenderness. [] Extremities: No tenderness, no cyanosis, no clubbing, ROM intact, no edema. [] Neurologic: Alert and oriented X 3, normal motor function, normal sensory function, no focal deficits noted. [] Current Patient Data Vital Signs Vital Signs Date Time Temp Pulse Resp B/P (MAP) Pulse Ox O2 Delivery O2 Flow Rate FiO2 06/13/18 00:56 98.3 110 20 98 Room Air EKG EKG [] Radiology/Procedures Radiology/Procedures [] Course & Med Decision Making Course & Med Decision Making Pertinent Labs and Imaging studies reviewed. (See chart for details) [] Final Impression Final Impression [] Problems: (1) Low back pain Qualifiers: Qualified Codes: M54.5 - Low back pain; G89.29 - Other chronic pain Dragon Disclaimer Dragon Disclaimer This electronic medical record was generated, in whole or in part, using a voice recognition dictation system. MELIDA MEJIA MD Jun 13, 2018 01:33
[2018-06-13 01:55] VITALS: BP 135/81
[2018-06-13] MEDS ORDERED: MORPHINE SULFATE 4 MG/ML DISP.SYRIN. IM ONE (02:00)
== END 2018-06-13 01:55 | disposition home or self-care (01) ==
LOC: ER 00:56
DX: O26.892 Other specified pregnancy related conditions, second trimester (principal); G89.29 Other chronic pain; M54.5 Low back pain; Z3A.26 26 weeks gestation of pregnancy; Z88.6 Allergy status to analgesic agent; Z88.8 Allergy status to other drugs, medicaments and biological substances; Z88.1 Allergy status to other antibiotic agents
CPT/HCPCS: 96372; 99283; J2270

== ENCOUNTER 2018-06-26 00:51 | Emergency (ER) | payer SELFPAY ==
--- NOTE | 2018-06-26 01:21 | ED.ADGEN ---
Past History Past Medical History: Endometriosis, Kidney Stones, Other Past Medical History Morbid obesity, Chronic back pain and Hx. Lumbar disc herniations Past Surgical History: Cholecystectomy Smoking: Cigarettes Alcohol Use: None Drug Use: None Adult General Chief Complaint Chief Complaint ".. We are moving.. and I over did.. and it made my chronic back pain worse.. I to get surgery at right after I delivery my baby... ".. " I am hurting so bad... it causing me to puke.." HPI HPI Patient is a 28 year old female who presents with above hx and complaints lumbar back pain. Pt. rates her lower back pain tonight is 10/10. Pt. has hx of herniated disc in her lumbar spine. Patient is approximately 26 weeks . Patient recently moving multiple boxes in change her residence. Patient denies any ballistic movements or trauma. Patient denies any problems with defecation or urination. Patient denies any fever or chills. Patient does have a history of kidney stones. Patient however states her pain not like her kidney stone pain. Patient denies any history immunosuppression. Patient denies any specific ill contacts. Patient denies any history of IV drug use. Patient plans on completing her delivery at where she get all of her primary care and OB care. Should be noted patient has had multiple visits to the emergency department for pain issues, and has been noted to possibly exhibit narcotic seeking behaviors. Review of Systems Review of Systems Constitutional: Denies fever or chills [] Eyes: Denies change in visual acuity, redness, or eye pain [] HENT: Denies nasal congestion or sore throat [] Respiratory: Denies cough or shortness of breath [] Cardiovascular: No additional information not addressed in HPI [] GI: Denies abdominal pain, bloody stools or diarrhea []Complaints of nausea and vomiting. : Denies dysuria or hematuria [] Musculoskeletal: Complaints of lumbar back pain . Integument: Denies rash or skin lesions [] Neurologic: Denies headache, focal weakness or sensory changes [] Endocrine: Denies polyuria or polydipsia [] All other systems were reviewed and found to be within normal limits, except as documented in this note. Family History Family History Non-contributory Current Medications Current Medications Current Medications Medications (Trade) Dose Ordered Sig/Gina Start Time Stop Time Status Last Admin Dose Admin Morphine Sulfate (Morphine 10mg Syringe) 10 mg 1X ONCE 06/26/18 02:15 06/26/18 02:16 DC 06/26/18 02:06 10 MG Ondansetron HCl (Zofran Odt) 8 mg 1X ONCE 06/26/18 02:15 06/26/18 02:16 DC 06/26/18 02:05 8 MG See Nursing for home meds. Allergies Allergies Allergies Coded Allergies Type Severity Reaction Last Updated Verified chlorpromazine Allergy Intermediate 05/07/18 No dicyclomine Allergy Intermediate 05/07/18 No duloxetine Allergy Intermediate 05/07/18 No fentanyl Allergy Intermediate 05/07/18 No ibuprofen Allergy Intermediate Hives 05/07/18 Yes ketorolac Allergy Intermediate 05/07/18 No promethazine Allergy Intermediate 05/07/18 No tramadol Allergy Intermediate 05/21/18 No Physical Exam Physical Exam Constitutional: Reports she is in acute distress, non-toxic appearance. [] HENT: Normocephalic, atraumatic, bilateral external ears normal, oropharynx moist, no oral exudates, nose normal. [] Eyes: PERRLA, EOMI, conjunctiva normal, no discharge. [] Neck: Normal range of motion, no tenderness, supple, no stridor. [] Cardiovascular:Heart rate regular rhythm, no murmur [] Lungs & Thorax: Bilateral breath sounds equal apex with scattered wheezes and basilar crackles on auscultation [] Abdomen: Bowel sounds decreased, soft, no tenderness,distended, no masses, no pulsatile masses. Old surgical scar. Large pannus. Morbid obesity. No saddle loss. Pt. declines rectal. FHR 150's Skin: Warm, dry, no erythema, no rash. [] Tattoo's. Back: Lumbar tenderness, no CVA tenderness. [] Pain follows sciatic root on Rt. Extremities: No tenderness, no cyanosis, no clubbing, ROM intact, ankle 1+ edema. [] Neurologic: Alert and oriented X 3, normal motor function, normal sensory function, no focal deficits noted. []DTR's + 2 patella and brachial. Pt is ambulatory without problem. Current Patient Data Vital Signs Vital Signs Date Time Temp Pulse Resp B/P (MAP) Pulse Ox O2 Delivery O2 Flow Rate FiO2 06/26/18 02:55 65 20 149/98 (115) 97 Room Air 3/31/19 01:28 98.3 Lab Results Laboratory Tests Test 06/26/18 01:30 Urine Collection Type Unknown Urine Color Yellow Urine Clarity Hazy Urine pH 6.0 Urine Specific [place] 1.020 Urine Protein Trace (NEG-TRACE) Urine Glucose (UA) Neg mg/dL (NEG) Urine Ketones (Stick) Neg mg/dL (NEG) Urine Blood Neg (NEG) Urine Nitrite Neg (NEG) Urine Bilirubin Neg (NEG) Urine Urobilinogen Dipstick 0.2 mg/dL (0.2 mg/dL) Urine Leukocyte Esterase Neg (NEG) Urine RBC 0 /HPF (0-2) Urine WBC 1-4 /HPF (0-4) Urine Squamous Epithelial Cells Many /LPF Urine Bacteria Few /HPF (0-FEW) Urine Mucus Slight /LPF Urine Opiates Screen Pos (NEG) Urine Methadone Screen Neg (NEG) Urine Barbiturates Neg (NEG) Urine Phencyclidine Screen Neg (NEG) Urine Amphetamine/Methamphetamine Neg (NEG) Urine Benzodiazepines Screen Neg (NEG) Urine Cocaine Screen Neg (NEG) Urine Cannabinoids Screen Neg (NEG) Urine Ethyl Alcohol Neg (NEG) EKG EKG [] Radiology/Procedures Radiology/Procedures [] Course & Med Decision Making Course & Med Decision Making Pertinent Labs and Imaging studies reviewed. (See chart for details). Patient to take Tylenol for pain. Patient use ice packs. Patient keep follow-up primary care and OB. Patient may take Percocet for marked discomfort up to 4 times a day. Patient advised further narcotic refills she be completed by her primary care or OB. Patient advised she can have increased back pain just from endocrine physiology related to her . Take patient to take Zofran 4- 8 mg up 4 times a day for active nausea and vomiting. Patient encouraged to stop smoking. Patient encouraged follow-up at where she plans to deliver. Encouraged pt. to stop smoking. Pt. encourage not to do excessive lifting or activity that will exacerbate her Lumbar disc dz. Pt. to use Ice packs as needed. Follow up UA results with primary. [] Final Impression Final Impression 1. Acute on Chronic Back [pain- Hx. of Lumbar Disc herniations 2. Morbid obesity 3. Estimated 26 weeks - first [] 4. Does seem to exhibit narcotic seeking behaviors- 5. Hx of Tobacco use 6. Hx. of Renal Stones 7. Hx of Endometriosis Dragon Disclaimer Dragon Disclaimer This electronic medical record was generated, in whole or in part, using a voice recognition dictation system. Dragon Disclaimer This chart was dictated in whole or in part using Voice Recognition software in a busy, high-work load, and often noisy Emergency Department environment. It may contain unintended and wholly unrecognized errors or omissions. Discharge Summary Visit Information Final Diagnosis Problems Medical Problems: (1) Low back pain Status: Acute (2) Status: Acute Brief Hospital Course Allergies Allergies Coded Allergies Type Severity Reaction Last Updated Verified chlorpromazine Allergy Intermediate 05/07/18 No dicyclomine Allergy Intermediate 05/07/18 No duloxetine Allergy Intermediate 05/07/18 No fentanyl Allergy Intermediate 05/07/18 No ibuprofen Allergy Intermediate Hives 05/07/18 Yes ketorolac Allergy Intermediate 05/07/18 No promethazine Allergy Intermediate 05/07/18 No tramadol Allergy Intermediate 05/21/18 No Vital Signs Vital Signs Date Time Temp Pulse Resp B/P (MAP) Pulse Ox O2 Delivery O2 Flow Rate FiO2 06/26/18 02:55 65 20 149/98 (115) 97 Room Air 06/26/18 01:28 98.3 Lab Results Laboratory Tests Test 06/26/18 01:30 Urine Collection Type Unknown Urine Color Yellow Urine Clarity Hazy Urine pH 6.0 Urine Specific [place] 1.020 Urine Protein Trace (NEG-TRACE) Urine Glucose (UA) Neg mg/dL (NEG) Urine Ketones (Stick) Neg mg/dL (NEG) Urine Blood Neg (NEG) Urine Nitrite Neg (NEG) Urine Bilirubin Neg (NEG) Urine Urobilinogen Dipstick 0.2 mg/dL (0.2 mg/dL) Urine Leukocyte Esterase Neg (NEG) Urine RBC 0 /HPF (0-2) Urine WBC 1-4 /HPF (0-4) Urine Squamous Epithelial Cells Many /LPF Urine Bacteria Few /HPF (0-FEW) Urine Mucus Slight /LPF Urine Opiates Screen Pos (NEG) Urine Methadone Screen Neg (NEG) Urine Barbiturates Neg (NEG) Urine Phencyclidine Screen Neg (NEG) Urine Amphetamine/Methamphetamine Neg (NEG) Urine Benzodiazepines Screen Neg (NEG) Urine Cocaine Screen Neg (NEG) Urine Cannabinoids Screen Neg (NEG) Urine Ethyl Alcohol Neg (NEG) Brief Hospital Course Ms. Orozco is a 28 old female who presented with acute exacerbation of chronic back pain. Pt. 26 weeks gravid. Discharge Information Condition at Discharge: Improved, Stable Disposition/Orders: D/C to Home Dischare Medications Current Medications Ondansetron HCl (Zofran Odt) 8 mg 1X ONCE PO Last administered on 06/26/18at 02 :05; Admin Dose 8 MG; Start 06/26/18 at 02:15; Stop 06/26/18 at 02:16; Status DC Morphine Sulfate (Morphine 10mg Syringe) 10 mg 1X ONCE SQ Last administered on 06/26/18at 02:06; Admin Dose 10 MG; Start 06/26/18 at 02:15; Stop 06/26/18 at 02:16; Status DC Active Scripts Active Percocet 5-325 Mg Tablet (Oxycodone Hcl/Acetaminophen) 1 Each Tablet 1 Tab PO PRN Q6HRS PRN Zofran (Ondansetron Hcl) 8 Mg Tablet 8 Mg PO QIDPRN PRN Tylenol With Codeine #3 Tablet (Acetaminophen With Codeine) 1 Each Tablet 1 Tab PO Q4-6HRS Zofran (Ondansetron Hcl) 4 Mg Tablet 4 Mg PO Q6HRS PRN Oxycodon-Acetaminophen 2.5-325 (Oxycodone Hcl/Acetaminophen) 1 Each Tablet 1 Each PO Q8HRS PRN Percocet 5-325 Mg Tablet (Oxycodone Hcl/Acetaminophen) 1 Each Tablet 1 Tab PO PRN Q6HRS PRN Zofran Odt (Ondansetron) 8 Mg Tab.rapdis 8 Mg PO QIDPRN PRN KAREN BACA MD Jun 26, 2018 01:21
[2018-06-26] MEDS ORDERED: OXYC1TAB15 PO (01:58)
[2018-06-26] MEDS ORDERED: ONDA8TAB9 PO (01:58)
[2018-06-26] MEDS ORDERED: ONDANSETRON ODT 4 MG TAB.RAPDIS PO ONE (02:15)
[2018-06-26] MEDS ORDERED: MORPHINE SULFATE 10 MG/ML SYRINGE. SQ ONE (02:15)
[2018-06-26 02:32] LABS: BILIRUBIN,URINE NEG (NEG); CLARITY,URINE HAZY; COLOR,URINE YELLOW; GLUCOSE,URINE NEG (NEG); NITRITE,URINE NEG (NEG); UROBILINOGEN,URINE 0.2 mg/dL (0.2 mg/dL)
[2018-06-26 02:33] LABS: BACTERIA,URINE FEW /HPF (0-FEW); RBC,URINE 0 /HPF (0-2); SQUAMOUS EPITHELIAL CELL,UR MANY /LPF
[2018-06-26 02:38] LABS: AMPHETAMINE/METHAMPHETAMINE NEG (NEG); BARBITURATES NEG (NEG); BENZODIAZEPINES NEG (NEG); CANNABINOIDS NEG (NEG); COCAINE NEG (NEG); METHADONE NEG (NEG); OPIATES POS (NEG); PHENCYCLIDINE NEG (NEG)
[2018-06-26 02:55] VITALS: BP 149/98
== END 2018-06-26 03:00 | disposition home or self-care (01) ==
LOC: ER 00:51
DX: O26.892 Other specified pregnancy related conditions, second trimester (principal); G89.29 Other chronic pain; M54.5 Low back pain; O26.832 Pregnancy related renal disease, second trimester; O99.332 Smoking (tobacco) complicating pregnancy, second trimester; Z87.442 Personal history of urinary calculi; O21.9 Vomiting of pregnancy, unspecified; Z3A.26 26 weeks gestation of pregnancy; Z88.1 Allergy status to other antibiotic agents; Z88.6 Allergy status to analgesic agent; Z88.8 Allergy status to other drugs, medicaments and biological substances
CPT/HCPCS: 36415; 80307; 81001; 96372; 99283; J2270; Q0162

== ENCOUNTER 2018-07-09 20:55 | Emergency (ER) | payer SELFPAY ==
[~2018-07-09] VITALS: Ht 162.6 cm; Wt 186.0 kg
[~2018-07-09 20:55] MED LIST changes: +ONDA8TAB9 PO
--- NOTE | 2018-07-09 20:58 | ED.ADGEN ---
Past History Past Medical History: Anxiety, Bipolar, Endometriosis, Kidney Stones, Other Past Surgical History: Cholecystectomy Smoking: Cigarettes Alcohol Use: None Drug Use: None Adult General Chief Complaint Chief Complaint ".... I feel like I am getting another kidney stone...".. " Here on the Lt. flank.. "... " I am about 28 weeks gravid now..." "This will be m 5 th renal stone.. usually I can pass them.. HPI HPI Patient is a 28 year old female who presents with above hx and complaints of left flank pain with nausea and vomiting. Patient is a 32 weeks gravid with lst . Patient has had prior evaluation for in our facility. On 03/07/18. At that time she was O+ blood type. 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 Pt. denies IV drug use, fevers, cancer or problems with urination and defecation. Family history kidney stones with her father. No history of recent trauma. No history of fever, chills or specific ill contacts. No history of vaginal discharge. Pain is localized in the left upper flank. Patient denies any intake of bad food. No recent travel. No specific history of immunosuppression. Review of Systems Review of Systems Constitutional: Denies fever or chills [] Eyes: Denies change in visual acuity, redness, or eye pain [] HENT: Denies nasal congestion or sore throat [] Respiratory: Denies cough or shortness of breath [] Cardiovascular: No additional information not addressed in HPI [] GI: Plaints of high left flank abdominal pain, nausea, vomiting, and hematuria : Denies dysuria or vaginal discharge. Musculoskeletal: Denies back pain or joint pain [] Integument: Denies rash or skin lesions [] Neurologic: Denies headache, focal weakness or sensory changes [] Endocrine: Denies polyuria or polydipsia [] All other systems were reviewed and found to be within normal limits, except as documented in this note. Family History Family History Father had renal stones Current Medications Current Medications Current Medications Medications (Trade) Dose Ordered Sig/Gina Start Time Stop Time Status Last Admin Dose Admin Famotidine (Pepcid Vial) 20 mg 1X ONCE 07/09/18 21:30 07/09/18 21:31 DC 07/09/18 21:56 20 MG Lactated Ringer's 1,000 ml @ 1,000 mls/hr 1X ONCE 07/09/18 23:30 07/10/18 00:29 DC 07/09/18 23:16 1,000 MLS/HR Magnesium Hydroxide (Milk Of Magnesia) 2,400 mg 1X ONCE 07/09/18 23:30 07/09/18 23:32 DC 07/09/18 23:16 2,400 MG Morphine Sulfate (Morphine 10mg Syringe) 10 mg 1X ONCE 07/09/18 21:30 07/09/18 21:31 DC 07/09/18 21:57 10 MG Ondansetron HCl (Zofran) 8 mg 1X ONCE 07/09/18 21:30 07/09/18 21:31 DC 07/09/18 21:56 8 MG Allergies Allergies Allergies Coded Allergies Type Severity Reaction Last Updated Verified chlorpromazine Allergy Intermediate 05/07/18 No dicyclomine Allergy Intermediate 05/07/18 No duloxetine Allergy Intermediate 05/07/18 No fentanyl Allergy Intermediate 05/07/18 No ibuprofen Allergy Intermediate Hives 05/07/18 Yes ketorolac Allergy Intermediate 05/07/18 No promethazine Allergy Intermediate 05/07/18 No tramadol Allergy Intermediate 05/21/18 No Physical Exam Physical Exam Constitutional: In acute distress, non-toxic appearance. [] HENT: Normocephalic, atraumatic, bilateral external ears normal, oropharynx moist, no oral exudates, nose normal. [] Eyes: PERRLA, EOMI, conjunctiva normal, no discharge. [] Neck: Normal range of motion, no tenderness, supple, no stridor. [] Cardiovascular:Heart rate regular rhythm, no murmur [] Lungs & Thorax: Bilateral breath sounds equal apexes , with some basilar crackles on auscultation [] Abdomen: Bowel sounds decreased, soft, [place] Lt. flank tenderness on percussion , no masses, no pulsatile masses. [] Morbid obesity. Old scar. Skin: Warm, dry, no erythema, no rash. [] Back: No tenderness, Lt. flank CVA tenderness. [] Hx. of chronic Lumbar djd and disc dz. Extremities: No tenderness, no cyanosis, no clubbing, ROM intact, 1+ ankle edema. [] Neurologic: Alert and oriented X 3, normal motor function, normal sensory function, no focal deficits noted. []DTR + 2 patella. Psychologic: Affect anxious, judgement normal, mood normal. [] Current Patient Data Vital Signs Vital Signs Date Time Temp Pulse Resp B/P (MAP) Pulse Ox O2 Delivery O2 Flow Rate FiO2 07/10/18 00:47 97 18 158/92 (114) 95 Room Air 07/09/18 20:55 98.5 Lab Results Laboratory Tests Test 07/09/18 20:25 07/09/18 21:35 07/09/18 21:46 07/09/18 22:10 Maternal Serum HCG Beta Subunit 03193 mIU/mL (0-6) H White Blood Count 12.2 x10^3/uL (4.0-11.0) H Red Blood Count 4.14 x10^6/uL (3.50-5.40) Hemoglobin 12.1 g/dL (12.0-15.5) Hematocrit 36.8 % (36.0-47.0) Mean Corpuscular Volume 89 fL (79-100) Mean Corpuscular Hemoglobin 29 pg (25-35) Mean Corpuscular Hemoglobin Concent 33 g/dL (31-37) Red Cell Distribution Width 14.6 % (11.5-14.5) H Platelet Count 252 x10^3/uL (140-400) Neutrophils (%) (Auto) 69 % (31-73) Lymphocytes (%) (Auto) 25 % (24-48) Monocytes (%) (Auto) 4 % (0-9) Eosinophils (%) (Auto) 1 % (0-3) Basophils (%) (Auto) 0 % (0-3) Neutrophils # (Auto) 8.5 x10^3uL (1.8-7.7) H Lymphocytes # (Auto) 3.1 x10^3/uL (1.0-4.8) Monocytes # (Auto) 0.5 x10^3/uL (0.0-1.1) Eosinophils # (Auto) 0.2 x10^3/uL (0.0-0.7) Basophils # (Auto) 0.0 x10^3/uL (0.0-0.2) Urine Collection Type Unknown Urine Color Yellow Urine Clarity Hazy Urine pH 6.0 Urine Specific [place] >=1.030 Urine Protein 100 mg/dl (NEG-TRACE) Urine Glucose (UA) Neg mg/dL (NEG) Urine Ketones (Stick) Trace mg/dL (NEG) Urine Blood Large (NEG) Urine Nitrite Neg (NEG) Urine Bilirubin Neg (NEG) Urine Urobilinogen Dipstick 0.2 mg/dL (0.2 mg/dL) Urine Leukocyte Esterase Neg (NEG) Urine RBC 6-10 /HPF (0-2) Urine WBC 1-4 /HPF (0-4) Urine Squamous Epithelial Cells Mod /LPF Urine Bacteria Few /HPF (0-FEW) Urine Mucus Mod /LPF Urine Opiates Screen Pos (NEG) Urine Methadone Screen Neg (NEG) Urine Barbiturates Neg (NEG) Urine Phencyclidine Screen Neg (NEG) Urine Amphetamine/Methamphetamine Neg (NEG) Urine Benzodiazepines Screen Neg (NEG) Urine Cocaine Screen Neg (NEG) Urine Cannabinoids Screen Neg (NEG) Urine Ethyl Alcohol Neg (NEG) POC Urine HCG, Qualitative hcg positive (Negative) Prothrombin Time 9.6 SEC (9.4-11.4) Prothrombin Time INR 1.0 (0.9-1.1) PTT 23 SEC (23-33) Sodium Level 138 mmol/L (136-145) Potassium Level 3.6 mmol/L (3.5-5.1) Chloride Level 104 mmol/L (98-107) Carbon Dioxide Level 28 mmol/L (21-32) Anion Gap 6 (6-14) Blood Urea Nitrogen 10 mg/dL (7-20) Creatinine 0.7 mg/dL (0.6-1.0) Estimated GFR (Cockcroft-Gault) 99.6 Glucose Level 129 mg/dL (70-99) H Calcium Level 9.2 mg/dL (8.5-10.1) Magnesium Level 1.4 mg/dL (1.8-2.4) L Total Bilirubin 0.1 mg/dL (0.2-1.0) L Direct Bilirubin < 0.1 mg/dL (0.0-0.2) Aspartate Amino Transferase (AST) 11 U/L (15-37) L Alanine Aminotransferase (ALT) 12 U/L (14-59) L Alkaline Phosphatase 72 U/L (46-116) Total Protein 6.2 g/dL (6.4-8.2) L Albumin 1.9 g/dL (3.4-5.0) L Amylase Level 48 U/L (25-115) Lipase 125 U/L (73-393) EKG EKG [] Radiology/Procedures Radiology/Procedures Ultrasound shows of intrauterine fetus. heart rate 140s. See formal report when available. No findings obvious hydronephrosis on left[] Course & Med Decision Making Course & Med Decision Making Pertinent Labs and Imaging studies reviewed. (See chart for details) Pt. encourage to keep follow up at [facility]. Take only Tylenol for pain. Follow up labs with primary. Push fluids. Zofran 8 up 4 x day for acute vomiting. [] Final Impression Final Impression 1. Lt Flank Pain- Renal colic 2. Hx. 31weeks/ 4 days IUP 3. Nausea and Vomiting 4. Blood Type O + 5. B-HCG = 52,221 6. Morbid obesity 7. Pt. exhibits possible narcotic seeking behavior 8. Constipation 9. Hx. Chronic Lumbar Back Pain/ Disc and DJD Lumbar Dragon Disclaimer Dragon Disclaimer This electronic medical record was generated, in whole or in part, using a voice recognition dictation system. Discharge Summary Visit Information Final Diagnosis Problems Medical Problems: (1) Abdominal pain Status: Acute (2) Renal colic on left side Status: Acute Brief Hospital Course Allergies Allergies Coded Allergies Type Severity Reaction Last Updated Verified chlorpromazine Allergy Intermediate 05/07/18 No dicyclomine Allergy Intermediate 05/07/18 No duloxetine Allergy Intermediate 05/07/18 No fentanyl Allergy Intermediate 05/07/18 No ibuprofen Allergy Intermediate Hives 05/07/18 Yes ketorolac Allergy Intermediate 05/07/18 No promethazine Allergy Intermediate 05/07/18 No tramadol Allergy Intermediate 05/21/18 No Vital Signs Vital Signs Date Time Temp Pulse Resp B/P (MAP) Pulse Ox O2 Delivery O2 Flow Rate FiO2 07/10/18 00:47 97 18 158/92 (114) 95 Room Air 07/09/18 20:55 98.5 Lab Results Laboratory Tests Test 07/09/18 20:25 07/09/18 21:35 07/09/18 21:46 07/09/18 22:10 Maternal Serum HCG Beta Subunit 47287 mIU/mL (0-6) White Blood Count 12.2 x10^3/uL (4.0-11.0) Red Blood Count 4.14 x10^6/uL (3.50-5.40) Hemoglobin 12.1 g/dL (12.0-15.5) Hematocrit 36.8 % (36.0-47.0) Mean Corpuscular Volume 89 fL (79-100) Mean Corpuscular Hemoglobin 29 pg (25-35) Mean Corpuscular Hemoglobin Concent 33 g/dL (31-37) Red Cell Distribution Width 14.6 % (11.5-14.5) Platelet Count 252 x10^3/uL (140-400) Neutrophils (%) (Auto) 69 % (31-73) Lymphocytes (%) (Auto) 25 % (24-48) Monocytes (%) (Auto) 4 % (0-9) Eosinophils (%) (Auto) 1 % (0-3) Basophils (%) (Auto) 0 % (0-3) Neutrophils # (Auto) 8.5 x10^3uL (1.8-7.7) Lymphocytes # (Auto) 3.1 x10^3/uL (1.0-4.8) Monocytes # (Auto) 0.5 x10^3/uL (0.0-1.1) Eosinophils # (Auto) 0.2 x10^3/uL (0.0-0.7) Basophils # (Auto) 0.0 x10^3/uL (0.0-0.2) Urine Collection Type Unknown Urine Color Yellow Urine Clarity Hazy Urine pH 6.0 Urine Specific [place] >=1.030 Urine Protein 100 mg/dl (NEG-TRACE) Urine Glucose (UA) Neg mg/dL (NEG) Urine Ketones (Stick) Trace mg/dL (NEG) Urine Blood Large (NEG) Urine Nitrite Neg (NEG) Urine Bilirubin Neg (NEG) Urine Urobilinogen Dipstick 0.2 mg/dL (0.2 mg/dL) Urine Leukocyte Esterase Neg (NEG) Urine RBC 6-10 /HPF (0-2) Urine WBC 1-4 /HPF (0-4) Urine Squamous Epithelial Cells Mod /LPF Urine Bacteria Few /HPF (0-FEW) Urine Mucus Mod /LPF Urine Opiates Screen Pos (NEG) Urine Methadone Screen Neg (NEG) Urine Barbiturates Neg (NEG) Urine Phencyclidine Screen Neg (NEG) Urine Amphetamine/Methamphetamine Neg (NEG) Urine Benzodiazepines Screen Neg (NEG) Urine Cocaine Screen Neg (NEG) Urine Cannabinoids Screen Neg (NEG) Urine Ethyl Alcohol Neg (NEG) Bedside Urine HCG, Qualitative hcg positive (Negative) Prothrombin Time 9.6 SEC (9.4-11.4) Prothromb Time International Ratio 1.0 (0.9-1.1) Activated Partial Thromboplast Time 23 SEC (23-33) Sodium Level 138 mmol/L (136-145) Potassium Level 3.6 mmol/L (3.5-5.1) Chloride Level 104 mmol/L (98-107) Carbon Dioxide Level 28 mmol/L (21-32) Anion Gap 6 (6-14) Blood Urea Nitrogen 10 mg/dL (7-20) Creatinine 0.7 mg/dL (0.6-1.0) Estimated GFR (Cockcroft-Gault) 99.6 Glucose Level 129 mg/dL (70-99) Calcium Level 9.2 mg/dL (8.5-10.1) Magnesium Level 1.4 mg/dL (1.8-2.4) Total Bilirubin 0.1 mg/dL (0.2-1.0) Direct Bilirubin < 0.1 mg/dL (0.0-0.2) Aspartate Amino Transf (AST/SGOT) 11 U/L (15-37) Alanine Aminotransferase (ALT/SGPT) 12 U/L (14-59) Alkaline Phosphatase 72 U/L (46-116) Total Protein 6.2 g/dL (6.4-8.2) Albumin 1.9 g/dL (3.4-5.0) Amylase Level 48 U/L (25-115) Lipase 125 U/L (73-393) Brief Hospital Course Ms. Orozco is a 28 old female who presented with hx 23 weeks gravid and Lt. upper flank pain. Discharge Information Condition at Discharge: Improved, Stable Disposition/Orders: D/C to Home Dischare Medications Current Medications Lactated Ringer's 1,000 ml @ 1,000 mls/hr Q1H IV Last administered on at 21:55; Admin Dose 1,000 MLS/HR; Start 07/09/18 at 21:30; Stop 07/09/18 at 22:29; Status DC Ondansetron HCl (Zofran) 8 mg 1X ONCE IV Last administered on 07/09/18at 21:56 ; Admin Dose 8 MG; Start 07/09/18 at 21:30; Stop 07/09/18 at 21:31; Status DC Famotidine (Pepcid Vial) 20 mg 1X ONCE IVP Last administered on 07/09/18at 21: 56; Admin Dose 20 MG; Start 07/09/18 at 21:30; Stop 07/09/18 at 21:31; Status DC Morphine Sulfate (Morphine 10mg Syringe) 10 mg 1X ONCE SQ Last administered on 07/09/18at 21:57; Admin Dose 10 MG; Start 07/09/18 at 21:30; Stop 07/09/18 at 21:31; Status DC Magnesium Hydroxide (Milk Of Magnesia) 2,400 mg 1X ONCE PO Last administered on 07/09/18at 23:16; Admin Dose 2,400 MG; Start 07/09/18 at 23:30; Stop 07/09/18 at 23:32; Status DC Lactated Ringer's 1,000 ml @ 1,000 mls/hr 1X ONCE IV Last administered on at 23:16; Admin Dose 1,000 MLS/HR; Start 07/09/18 at 23:30; Stop 07/10/18 at 00:29; Status DC Active Scripts Active Zofran (Ondansetron Hcl) 8 Mg Tablet 8 Mg PO QIDPRN PRN Percocet 5-325 Mg Tablet (Oxycodone Hcl/Acetaminophen) 1 Each Tablet 1 Tab PO PRN Q6HRS PRN Zofran (Ondansetron Hcl) 8 Mg Tablet 8 Mg PO QIDPRN PRN Tylenol With Codeine #3 Tablet (Acetaminophen With Codeine) 1 Each Tablet 1 Tab PO Q4-6HRS Zofran (Ondansetron Hcl) 4 Mg Tablet 4 Mg PO Q6HRS PRN Oxycodon-Acetaminophen 2.5-325 (Oxycodone Hcl/Acetaminophen) 1 Each Tablet 1 Each PO Q8HRS PRN Percocet 5-325 Mg Tablet (Oxycodone Hcl/Acetaminophen) 1 Each Tablet 1 Tab PO PRN Q6HRS PRN Zofran Odt (Ondansetron) 8 Mg Tab.rapdis 8 Mg PO QIDPRN PRN Discharge Summary Visit Information Final Diagnosis Problems Medical Problems: (1) Abdominal pain Status: Acute (2) Renal colic on left side Status: Acute Brief Hospital Course Allergies Allergies Coded Allergies Type Severity Reaction Last Updated Verified chlorpromazine Allergy Intermediate 05/07/18 No dicyclomine Allergy Intermediate 05/07/18 No duloxetine Allergy Intermediate 05/07/18 No fentanyl Allergy Intermediate 05/07/18 No ibuprofen Allergy Intermediate Hives 05/07/18 Yes ketorolac Allergy Intermediate 05/07/18 No promethazine Allergy Intermediate 05/07/18 No tramadol Allergy Intermediate 05/21/18 No Vital Signs Vital Signs Date Time Temp Pulse Resp B/P (MAP) Pulse Ox O2 Delivery O2 Flow Rate FiO2 07/10/18 00:47 97 18 158/92 (114) 95 Room Air 07/09/18 20:55 98.5 Lab Results Laboratory Tests Test 07/09/18 20:25 07/09/18 21:35 07/09/18 21:46 07/09/18 22:10 Maternal Serum HCG Beta Subunit 49030 mIU/mL (0-6) White Blood Count 12.2 x10^3/uL (4.0-11.0) Red Blood Count 4.14 x10^6/uL (3.50-5.40) Hemoglobin 12.1 g/dL (12.0-15.5) Hematocrit 36.8 % (36.0-47.0) Mean Corpuscular Volume 89 fL (79-100) Mean Corpuscular Hemoglobin 29 pg (25-35) Mean Corpuscular Hemoglobin Concent 33 g/dL (31-37) Red Cell Distribution Width 14.6 % (11.5-14.5) Platelet Count 252 x10^3/uL (140-400) Neutrophils (%) (Auto) 69 % (31-73) Lymphocytes (%) (Auto) 25 % (24-48) Monocytes (%) (Auto) 4 % (0-9) Eosinophils (%) (Auto) 1 % (0-3) Basophils (%) (Auto) 0 % (0-3) Neutrophils # (Auto) 8.5 x10^3uL (1.8-7.7) Lymphocytes # (Auto) 3.1 x10^3/uL (1.0-4.8) Monocytes # (Auto) 0.5 x10^3/uL (0.0-1.1) Eosinophils # (Auto) 0.2 x10^3/uL (0.0-0.7) Basophils # (Auto) 0.0 x10^3/uL (0.0-0.2) Urine Collection Type Unknown Urine Color Yellow Urine Clarity Hazy Urine pH 6.0 Urine Specific [place] >=1.030 Urine Protein 100 mg/dl (NEG-TRACE) Urine Glucose (UA) Neg mg/dL (NEG) Urine Ketones (Stick) Trace mg/dL (NEG) Urine Blood Large (NEG) Urine Nitrite Neg (NEG) Urine Bilirubin Neg (NEG) Urine Urobilinogen Dipstick 0.2 mg/dL (0.2 mg/dL) Urine Leukocyte Esterase Neg (NEG) Urine RBC 6-10 /HPF (0-2) Urine WBC 1-4 /HPF (0-4) Urine Squamous Epithelial Cells Mod /LPF Urine Bacteria Few /HPF (0-FEW) Urine Mucus Mod /LPF Urine Opiates Screen Pos (NEG) Urine Methadone Screen Neg (NEG) Urine Barbiturates Neg (NEG) Urine Phencyclidine Screen Neg (NEG) Urine Amphetamine/Methamphetamine Neg (NEG) Urine Benzodiazepines Screen Neg (NEG) Urine Cocaine Screen Neg (NEG) Urine Cannabinoids Screen Neg (NEG) Urine Ethyl Alcohol Neg (NEG) Bedside Urine HCG, Qualitative hcg positive (Negative) Prothrombin Time 9.6 SEC (9.4-11.4) Prothromb Time International Ratio 1.0 (0.9-1.1) Activated Partial Thromboplast Time 23 SEC (23-33) Sodium Level 138 mmol/L (136-145) Potassium Level 3.6 mmol/L (3.5-5.1) Chloride Level 104 mmol/L (98-107) Carbon Dioxide Level 28 mmol/L (21-32) Anion Gap 6 (6-14) Blood Urea Nitrogen 10 mg/dL (7-20) Creatinine 0.7 mg/dL (0.6-1.0) Estimated GFR (Cockcroft-Gault) 99.6 Glucose Level 129 mg/dL (70-99) Calcium Level 9.2 mg/dL (8.5-10.1) Magnesium Level 1.4 mg/dL (1.8-2.4) Total Bilirubin 0.1 mg/dL (0.2-1.0) Direct Bilirubin < 0.1 mg/dL (0.0-0.2) Aspartate Amino Transf (AST/SGOT) 11 U/L (15-37) Alanine Aminotransferase (ALT/SGPT) 12 U/L (14-59) Alkaline Phosphatase 72 U/L (46-116) Total Protein 6.2 g/dL (6.4-8.2) Albumin 1.9 g/dL (3.4-5.0) Amylase Level 48 U/L (25-115) Lipase 125 U/L (73-393) Brief Hospital Course Ms. Orozco is a 28 old female who presented with hx of 32 weeks and Lt upper flank pain. Discharge Information Condition at Discharge: Improved, Stable Disposition/Orders: D/C to Home Dischare Medications Current Medications Lactated Ringer's 1,000 ml @ 1,000 mls/hr Q1H IV Last administered on at 21:55; Admin Dose 1,000 MLS/HR; Start 07/09/18 at 21:30; Stop 07/09/18 at 22:29; Status DC Ondansetron HCl (Zofran) 8 mg 1X ONCE IV Last administered on 07/09/18at 21:56 ; Admin Dose 8 MG; Start 07/09/18 at 21:30; Stop 07/09/18 at 21:31; Status DC Famotidine (Pepcid Vial) 20 mg 1X ONCE IVP Last administered on 07/09/18at 21: 56; Admin Dose 20 MG; Start 07/09/18 at 21:30; Stop 07/09/18 at 21:31; Status DC Morphine Sulfate (Morphine 10mg Syringe) 10 mg 1X ONCE SQ Last administered on 07/09/18at 21:57; Admin Dose 10 MG; Start 07/09/18 at 21:30; Stop 07/09/18 at 21:31; Status DC Magnesium Hydroxide (Milk Of Magnesia) 2,400 mg 1X ONCE PO Last administered on 07/09/18at 23:16; Admin Dose 2,400 MG; Start 07/09/18 at 23:30; Stop 07/09/18 at 23:32; Status DC Lactated Ringer's 1,000 ml @ 1,000 mls/hr 1X ONCE IV Last administered on 4/ 13/19at 23:16; Admin Dose 1,000 MLS/HR; Start 07/09/18 at 23:30; Stop 07/10/18 at 00:29; Status DC Active Scripts Active Zofran (Ondansetron Hcl) 8 Mg Tablet 8 Mg PO QIDPRN PRN Percocet 5-325 Mg Tablet (Oxycodone Hcl/Acetaminophen) 1 Each Tablet 1 Tab PO PRN Q6HRS PRN Zofran (Ondansetron Hcl) 8 Mg Tablet 8 Mg PO QIDPRN PRN Tylenol With Codeine #3 Tablet (Acetaminophen With Codeine) 1 Each Tablet 1 Tab PO Q4-6HRS Zofran (Ondansetron Hcl) 4 Mg Tablet 4 Mg PO Q6HRS PRN Oxycodon-Acetaminophen 2.5-325 (Oxycodone Hcl/Acetaminophen) 1 Each Tablet 1 Each PO Q8HRS PRN Percocet 5-325 Mg Tablet (Oxycodone Hcl/Acetaminophen) 1 Each Tablet 1 Tab PO PRN Q6HRS PRN Zofran Odt (Ondansetron) 8 Mg Tab.rapdis 8 Mg PO QIDPRN PRN Discharge Summary Visit Information Final Diagnosis Problems Medical Problems: (1) Abdominal pain Status: Acute (2) Renal colic on left side Status: Acute Brief Hospital Course Allergies Allergies Coded Allergies Type Severity Reaction Last Updated Verified chlorpromazine Allergy Intermediate 05/07/18 No dicyclomine Allergy Intermediate 05/07/18 No duloxetine Allergy Intermediate 05/07/18 No fentanyl Allergy Intermediate 05/07/18 No ibuprofen Allergy Intermediate Hives 05/07/18 Yes ketorolac Allergy Intermediate 05/07/18 No promethazine Allergy Intermediate 05/07/18 No tramadol Allergy Intermediate 05/21/18 No Vital Signs Vital Signs Date Time Temp Pulse Resp B/P (MAP) Pulse Ox O2 Delivery O2 Flow Rate FiO2 07/10/18 00:47 97 18 158/92 (114) 95 Room Air 07/09/18 20:55 98.5 Lab Results Laboratory Tests Test 07/09/18 20:25 07/09/18 21:35 07/09/18 21:46 07/09/18 22:10 Maternal Serum HCG Beta Subunit 23294 mIU/mL (0-6) White Blood Count 12.2 x10^3/uL (4.0-11.0) Red Blood Count 4.14 x10^6/uL (3.50-5.40) Hemoglobin 12.1 g/dL (12.0-15.5) Hematocrit 36.8 % (36.0-47.0) Mean Corpuscular Volume 89 fL (79-100) Mean Corpuscular Hemoglobin 29 pg (25-35) Mean Corpuscular Hemoglobin Concent 33 g/dL (31-37) Red Cell Distribution Width 14.6 % (11.5-14.5) Platelet Count 252 x10^3/uL (140-400) Neutrophils (%) (Auto) 69 % (31-73) Lymphocytes (%) (Auto) 25 % (24-48) Monocytes (%) (Auto) 4 % (0-9) Eosinophils (%) (Auto) 1 % (0-3) Basophils (%) (Auto) 0 % (0-3) Neutrophils # (Auto) 8.5 x10^3uL (1.8-7.7) Lymphocytes # (Auto) 3.1 x10^3/uL (1.0-4.8) Monocytes # (Auto) 0.5 x10^3/uL (0.0-1.1) Eosinophils # (Auto) 0.2 x10^3/uL (0.0-0.7) Basophils # (Auto) 0.0 x10^3/uL (0.0-0.2) Urine Collection Type Unknown Urine Color Yellow Urine Clarity Hazy Urine pH 6.0 Urine Specific [place] >=1.030 Urine Protein 100 mg/dl (NEG-TRACE) Urine Glucose (UA) Neg mg/dL (NEG) Urine Ketones (Stick) Trace mg/dL (NEG) Urine Blood Large (NEG) Urine Nitrite Neg (NEG) Urine Bilirubin Neg (NEG) Urine Urobilinogen Dipstick 0.2 mg/dL (0.2 mg/dL) Urine Leukocyte Esterase Neg (NEG) Urine RBC 6-10 /HPF (0-2) Urine WBC 1-4 /HPF (0-4) Urine Squamous Epithelial Cells Mod /LPF Urine Bacteria Few /HPF (0-FEW) Urine Mucus Mod /LPF Urine Opiates Screen Pos (NEG) Urine Methadone Screen Neg (NEG) Urine Barbiturates Neg (NEG) Urine Phencyclidine Screen Neg (NEG) Urine Amphetamine/Methamphetamine Neg (NEG) Urine Benzodiazepines Screen Neg (NEG) Urine Cocaine Screen Neg (NEG) Urine Cannabinoids Screen Neg (NEG) Urine Ethyl Alcohol Neg (NEG) Bedside Urine HCG, Qualitative hcg positive (Negative) Prothrombin Time 9.6 SEC (9.4-11.4) Prothromb Time International Ratio 1.0 (0.9-1.1) Activated Partial Thromboplast Time 23 SEC (23-33) Sodium Level 138 mmol/L (136-145) Potassium Level 3.6 mmol/L (3.5-5.1) Chloride Level 104 mmol/L (98-107) Carbon Dioxide Level 28 mmol/L (21-32) Anion Gap 6 (6-14) Blood Urea Nitrogen 10 mg/dL (7-20) Creatinine 0.7 mg/dL (0.6-1.0) Estimated GFR (Cockcroft-Gault) 99.6 Glucose Level 129 mg/dL (70-99) Calcium Level 9.2 mg/dL (8.5-10.1) Magnesium Level 1.4 mg/dL (1.8-2.4) Total Bilirubin 0.1 mg/dL (0.2-1.0) Direct Bilirubin < 0.1 mg/dL (0.0-0.2) Aspartate Amino Transf (AST/SGOT) 11 U/L (15-37) Alanine Aminotransferase (ALT/SGPT) 12 U/L (14-59) Alkaline Phosphatase 72 U/L (46-116) Total Protein 6.2 g/dL (6.4-8.2) Albumin 1.9 g/dL (3.4-5.0) Amylase Level 48 U/L (25-115) Lipase 125 U/L (73-393) Brief Hospital Course Ms. Orozco is a 28 old female who presented with Lt upper flank pain, hx 32 wks. gravid. Discharge Information Condition at Discharge: Improved, Stable Disposition/Orders: D/C to Home Dischare Medications Current Medications Lactated Ringer's 1,000 ml @ 1,000 mls/hr Q1H IV Last administered on at 21:55; Admin Dose 1,000 MLS/HR; Start 07/09/18 at 21:30; Stop 07/09/18 at 22:29; Status DC Ondansetron HCl (Zofran) 8 mg 1X ONCE IV Last administered on 07/09/18at 21:56 ; Admin Dose 8 MG; Start 07/09/18 at 21:30; Stop 07/09/18 at 21:31; Status DC Famotidine (Pepcid Vial) 20 mg 1X ONCE IVP Last administered on 07/09/18at 21: 56; Admin Dose 20 MG; Start 07/09/18 at 21:30; Stop 07/09/18 at 21:31; Status DC Morphine Sulfate (Morphine 10mg Syringe) 10 mg 1X ONCE SQ Last administered on 07/09/18at 21:57; Admin Dose 10 MG; Start 07/09/18 at 21:30; Stop 07/09/18 at 21:31; Status DC Magnesium Hydroxide (Milk Of Magnesia) 2,400 mg 1X ONCE PO Last administered on 07/09/18at 23:16; Admin Dose 2,400 MG; Start 07/09/18 at 23:30; Stop 07/09/18 at 23:32; Status DC Lactated Ringer's 1,000 ml @ 1,000 mls/hr 1X ONCE IV Last administered on at 23:16; Admin Dose 1,000 MLS/HR; Start 07/09/18 at 23:30; Stop 07/10/18 at 00:29; Status DC Active Scripts Active Zofran (Ondansetron Hcl) 8 Mg Tablet 8 Mg PO QIDPRN PRN Percocet 5-325 Mg Tablet (Oxycodone Hcl/Acetaminophen) 1 Each Tablet 1 Tab PO PRN Q6HRS PRN Zofran (Ondansetron Hcl) 8 Mg Tablet 8 Mg PO QIDPRN PRN Tylenol With Codeine #3 Tablet (Acetaminophen With Codeine) 1 Each Tablet 1 Tab PO Q4-6HRS Zofran (Ondansetron Hcl) 4 Mg Tablet 4 Mg PO Q6HRS PRN Oxycodon-Acetaminophen 2.5-325 (Oxycodone Hcl/Acetaminophen) 1 Each Tablet 1 Each PO Q8HRS PRN Percocet 5-325 Mg Tablet (Oxycodone Hcl/Acetaminophen) 1 Each Tablet 1 Tab PO PRN Q6HRS PRN Zofran Odt (Ondansetron) 8 Mg Tab.rapdis 8 Mg PO QIDPRN PRN Dragon Disclaimer This chart was dictated in whole or in part using Voice Recognition software in a busy, high-work load, and often noisy Emergency Department environment. It may contain unintended and wholly unrecognized errors or omissions. Dragon Disclaimer This chart was dictated in whole or in part using Voice Recognition software in a busy, high-work load, and often noisy Emergency Department environment. It may contain unintended and wholly unrecognized errors or omissions. Dragon Disclaimer This chart was dictated in whole or in part using Voice Recognition software in a busy, high-work load, and often noisy Emergency Department environment. It may contain unintended and wholly unrecognized errors or omissions. KAREN BACA MD Jul 09, 2018 20:58
[2018-07-09] MEDS ORDERED: IV RINGERS SOLUTION,LACTATED 1,000 ML IV SCH (21:30)
[2018-07-09] MEDS ORDERED: ONDANSETRON PF 4 MG/2 ML VIAL. IV ONE (21:30)
[2018-07-09] MEDS ORDERED: FAMOTIDINE 20 MG/2 ML VIAL IVP ONE (21:30)
[2018-07-09] MEDS ORDERED: MORPHINE SULFATE 10 MG/ML SYRINGE. SQ ONE (21:30)
[2018-07-09 22:05] LABS: BASO % 0 % (0-3); EOS # 0.2 x10^3/uL (0.0-0.7); EOS % 1 % (0-3); HEMATOCRIT 36.8 % (36.0-47.0); HEMOGLOBIN 12.1 g/dL (12.0-15.5); LYMPH # 3.1 x10^3/uL (1.0-4.8); LYMPH % 25 % (24-48); MEAN CORPUSCULAR HEMOGLOBIN 29 pg (25-35); MEAN CORPUSCULAR HGB CONC 33 g/dL (31-37); MEAN CORPUSCULAR VOLUME 89 fL (79-100); MONO # 0.5 x10^3/uL (0.0-1.1); MONO % 4 % (0-9); NEUT # 8.5 x10^3uL (1.8-7.7); NEUT % 69 % (31-73); PLATELET COUNT 252 x10^3/uL (140-400); RED BLOOD COUNT 4.14 x10^6/uL (3.50-5.40); RED CELL DISTRIBUTION WIDTH 14.6 % (11.5-14.5); WHITE BLOOD COUNT 12.2 x10^3/uL (4.0-11.0)
[2018-07-09 22:40] LABS: AMPHETAMINE/METHAMPHETAMINE NEG (NEG); BARBITURATES NEG (NEG); BENZODIAZEPINES NEG (NEG); CANNABINOIDS NEG (NEG); COCAINE NEG (NEG); METHADONE NEG (NEG); OPIATES POS (NEG); PHENCYCLIDINE NEG (NEG)
[2018-07-09 22:41] LABS: BILIRUBIN,URINE NEG (NEG); CLARITY,URINE HAZY; COLOR,URINE YELLOW; GLUCOSE,URINE NEG (NEG); NITRITE,URINE NEG (NEG); UROBILINOGEN,URINE 0.2 mg/dL (0.2 mg/dL)
[2018-07-09 22:42] LABS: BACTERIA,URINE FEW /HPF (0-FEW); SQUAMOUS EPITHELIAL CELL,UR MOD /LPF
[2018-07-09 22:49] LABS: ALBUMIN 1.9 g/dL (3.4-5.0); ALK PHOS 72 U/L (46-116); ALT (SGPT) 12 U/L (14-59); AMYLASE 48 U/L (25-115); ANION GAP 6 (6-14); AST (SGOT) 11 U/L (15-37); BLOOD UREA NITROGEN 10 mg/dL (7-20); CALCIUM 9.2 mg/dL (8.5-10.1); CARBON DIOXIDE 28 mmol/L (21-32); CHLORIDE 104 mmol/L (98-107); CREATININE 0.7 mg/dL (0.6-1.0); GFR 99.6; GLUCOSE 129 mg/dL (70-99); LIPASE 125 U/L (73-393); MAGNESIUM 1.4 mg/dL (1.8-2.4); POTASSIUM 3.6 mmol/L (3.5-5.1); SODIUM 138 mmol/L (136-145); TOTAL BILIRUBIN 0.1 mg/dL (0.2-1.0); TOTAL PROTEIN 6.2 g/dL (6.4-8.2)
[2018-07-09 22:51] LABS: DIRECT BILIRUBIN < 0.1 mg/dL (0.0-0.2)
--- NOTE | 2018-07-09 23:12 | RAD ---
Complete renal ultrasound HISTORY: Left flank pain. . FINDINGS: Left renal length 14.2 cm. Normal renal cortical thickness and parenchymal echogenicity. No echogenic shadowing calculus, mass or hydronephrosis. There may be mild left renal lower pole caliectasis. Limited visualization of the bladder which is minimally distended somewhat obscured by gravid uterus. Right kidney cannot be visualized. Aorta and IVC could not be visualized. IMPRESSION: Right kidney not visualized. Left kidney demonstrates mild lower pole caliectasis. Electronically signed by: Bernardo Rouse MD (07/09/2018 11:09 PM) [facility]
--- NOTE | 2018-07-09 23:14 | RAD ---
Obstetrical ultrasound greater than 14 weeks HISTORY: 28 week female with left flank pain. FINDINGS: Intrauterine fetus in cephalic position with estimated sonographic gestational age of 31 weeks 4 days and date of delivery September 06, 2018. Estimated weight 1780 g, 52nd percentile. Cephalic index 84%. Head/abdominal discomfort ratio 1.0. Biparietal diameter 8.14 cm, gestational age 32 weeks 5 days, 86th percentile. Head circumference 28.12 cm, gestational age 30 weeks 6 days, 12th percentile. Abdominal circumference 28.07 cm, gestational age 32 weeks 1 day, 78th percentile. Femur length 5.1 cm, gestational age 30 weeks 3 days, 20th percentile. heart rate 147 bpm. anatomy was not assessed. Amniotic fluid index 15.2 cm. Fundus is anterior and fundal. Cervix was not documented or visualized. Maternal ovaries not documented were visualized. IMPRESSION: Single living intrauterine fetus with estimated sonographic gestational age of 31 weeks 4 days as described by. Electronically signed by: Bernardo Rouse MD (07/09/2018 11:12 PM) [facility]
[2018-07-09] MEDS ORDERED: IV RINGERS SOLUTION,LACTATED 1,000 ML IV ONE (23:30)
[2018-07-09] MEDS ORDERED: MAGNESIUM HYDROXIDE 2,400 MG/30 ML ORAL.SUSP. PO ONE (23:30)
[2018-07-10] MEDS ORDERED: ONDA8TAB9 PO (00:41)
[2018-07-10 00:47] VITALS: BP 158/92
== END 2018-07-10 00:50 | disposition home or self-care (01) ==
LOC: ER 20:55
DX: O26.833 Pregnancy related renal disease, third trimester (principal); N23 Unspecified renal colic; O99.213 Obesity complicating pregnancy, third trimester; E66.01 Morbid (severe) obesity due to excess calories; O21.9 Vomiting of pregnancy, unspecified; K59.00 Constipation, unspecified; G89.29 Other chronic pain; M54.5 Low back pain; O99.343 Other mental disorders complicating pregnancy, third trimester; F41.9 Anxiety disorder, unspecified; F31.9 Bipolar disorder, unspecified; O99.333 Smoking (tobacco) complicating pregnancy, third trimester; Z3A.31 31 weeks gestation of pregnancy; Z87.442 Personal history of urinary calculi; Z90.49 Acquired absence of other specified parts of digestive tract; Z88.8 Allergy status to other drugs, medicaments and biological substances; Z88.6 Allergy status to analgesic agent
CPT/HCPCS: 36415; 76775; 76815; 80048; 80076; 80307; 81001; 81025; 82150; 83690; 83735; 84443; 84702; 85025; 85610; 85730; 86705; 86709; 86803; 87340; 96361; 96372; 96374; 96375; 99285; J2270; J2405; J3490; J7120

== ENCOUNTER 2018-09-10 22:37 | Emergency (ER) | payer SELFPAY ==
[~2018-09-10] VITALS: Ht 162.6 cm; Wt 181.4 kg
--- NOTE | 2018-09-10 22:39 | ED.ADGEN ---
Past History Past Medical History: Anxiety, Bipolar, Endometriosis, Kidney Stones, Other Past Surgical History: Cholecystectomy Smoking: Cigarettes Alcohol Use: None Drug Use: None Adult General Chief Complaint Chief Complaint ".. I still got a lot of drainage.. at my C section site.. I have Cellulitis .. and it has been getting better on Bactrim.. but now I am so nauseated.. I can't take my pain meds.. or nausea meds.. I had the C -section at on 08/30.. because of eclampsia or preeclampsia.....and they took the phillip out on .. And my incision site opened up... the moment they took the phillip out... " HPI HPI Patient is a 28 year old female who presents with above hx and complaints post op staple line dehiscent and cellulitis. Patient states cellulitis has improved had marked improvement since started on Bactrim. Patient denies any history immunosuppression. No recent travel. No specific ill contacts. Patient is not currently breast-feeding. Patient does have follow-up at this next week. Patient has been doing dressing changes at her site. Patient reports she has been eating but has been very nauseated. Did eat toast earlier today. Has been passing stool. Has been passing urine. Patient's pain is somewhat generalized to the abdomen. Patient has other medical issues of anxiety,anemia, bipolar, kidney stones, endometriosis and morbid obesity. This was pt. lst . Review of Systems Review of Systems Constitutional: Denies fever or chills [] Eyes: Denies change in visual acuity, redness, or eye pain [] HENT: Denies nasal congestion or sore throat [] Respiratory: Denies cough or shortness of breath [] Cardiovascular: No additional information not addressed in HPI [] GI: Lines of generalized abdominal pain, nausea,. Denies vomiting, bloody stools or diarrhea [] : Denies dysuria or hematuria [] Musculoskeletal: Denies back pain or joint pain [] Integument: Denies rash or skin lesions []complaints of incision and drainage and cellulitis. Neurologic: Denies headache, focal weakness or sensory changes [] Endocrine: Denies polyuria or polydipsia [] All other systems were reviewed and found to be within normal limits, except as documented in this note. Family History Family History Noncontributory Current Medications Current Medications Current Medications Medications (Trade) Dose Ordered Sig/Gina Start Time Stop Time Status Last Admin Dose Admin Ceftriaxone Sodium 1 gm/ Sodium Chloride 50 ml @ 100 mls/hr 1X ONCE 09/10/18 23:00 09/10/18 23:29 DC 09/10/18 23:24 100 MLS/HR Ceftriaxone Sodium (Rocephin) 1 gm STK-MED ONCE 09/10/18 23:10 09/10/18 23:11 DC Lactated Ringer's 1,000 ml @ 1,000 mls/hr Q1H 09/10/18 23:00 09/10/18 23:59 DC 09/10/18 23:24 1,000 MLS/HR Magnesium Hydroxide (Milk Of Magnesia) 2,400 mg STK-MED ONCE 09/11/18 00:20 09/11/18 00:21 DC Morphine Sulfate (Morphine 10mg Syringe) 10 mg 1X ONCE 09/10/18 23:00 09/10/18 23:01 DC 09/10/18 23:13 10 MG Ondansetron HCl (Starter Pack - Zofran Odt) 1 startpack STK-MED ONCE 09/11/18 00:39 09/11/18 00:57 DC Ondansetron HCl (Zofran) 4 mg 1X ONCE 09/10/18 23:00 09/10/18 23:01 DC 09/10/18 23:12 4 MG Sodium Chloride 50 ml @ As Directed STK-MED ONCE 09/10/18 23:10 09/10/18 23:11 DC Allergies Allergies Allergies Coded Allergies Type Severity Reaction Last Updated Verified chlorpromazine Allergy Intermediate 05/07/18 No dicyclomine Allergy Intermediate 05/07/18 No duloxetine Allergy Intermediate 05/07/18 No fentanyl Allergy Intermediate 05/07/18 No ibuprofen Allergy Intermediate Hives 05/07/18 Yes ketorolac Allergy Intermediate 05/07/18 No promethazine Allergy Intermediate 05/07/18 No tramadol Allergy Intermediate 05/21/18 No Physical Exam Physical Exam Constitutional: Moderately acute distress, non-toxic appearance. [] HENT: Normocephalic, atraumatic, bilateral external ears normal, oropharynx moist, no oral exudates, nose normal. [] Eyes: PERRLA, EOMI, conjunctiva normal, no discharge. [] Neck: Normal range of motion, no tenderness, supple, no stridor. []More than 17 inches circumference Cardiovascular:Heart rate regular rhythm, no murmur [] Lungs & Thorax: Bilateral breath sounds equal apex with few scattered wheezes. Has some bibasilar crackles on Auscultation [] Abdomen: Bowel sounds normal, soft, no tenderness, no masses, no pulsatile masses. [] Morbidly obese. Cellulitis on pannus. Does show regression of area of cellulitis as per prior margin marking. Incision site is open but appears to be gradually healing. Skin: Warm, dry, cellulitis as per history of present illness ( Improved per pt. Hx.) Back: No tenderness, no CVA tenderness. [] Extremities: No tenderness, no cyanosis, no clubbing, ROM intact, pitting edema to knees.( Pt.reports this is markedly improved. ) Neurologic: Alert and oriented X 3, normal motor function, normal sensory function, no focal deficits noted. []DTRs +2 patella and brachial. Psychologic: Affect anxious, judgement normal, mood normal. [] Current Patient Data Vital Signs Vital Signs Date Time Temp Pulse Resp B/P (MAP) Pulse Ox O2 Delivery O2 Flow Rate FiO2 09/10/18 22:42 98.4 102 24 98 Room Air 09/10/18 22:40 128/62 (84) Lab Results Laboratory Tests Test 09/10/18 23:05 White Blood Count 9.1 x10^3/uL (4.0-11.0) Red Blood Count 3.85 x10^6/uL (3.50-5.40) Hemoglobin 11.1 g/dL (12.0-15.5) L Hematocrit 34.2 % (36.0-47.0) L Mean Corpuscular Volume 89 fL (79-100) Mean Corpuscular Hemoglobin 29 pg (25-35) Mean Corpuscular Hemoglobin Concent 33 g/dL (31-37) Red Cell Distribution Width 16.6 % (11.5-14.5) H Platelet Count 345 x10^3/uL (140-400) Neutrophils (%) (Auto) 52 % (31-73) Lymphocytes (%) (Auto) 38 % (24-48) Monocytes (%) (Auto) 7 % (0-9) Eosinophils (%) (Auto) 3 % (0-3) Basophils (%) (Auto) 1 % (0-3) Neutrophils # (Auto) 4.7 x10^3uL (1.8-7.7) Lymphocytes # (Auto) 3.4 x10^3/uL (1.0-4.8) Monocytes # (Auto) 0.6 x10^3/uL (0.0-1.1) Eosinophils # (Auto) 0.3 x10^3/uL (0.0-0.7) Basophils # (Auto) 0.0 x10^3/uL (0.0-0.2) Prothrombin Time 10.3 SEC (9.4-11.4) Prothrombin Time INR 1.0 (0.9-1.1) PTT 24 SEC (23-33) Sodium Level 139 mmol/L (136-145) Potassium Level 4.5 mmol/L (3.5-5.1) Chloride Level 104 mmol/L (98-107) Carbon Dioxide Level 27 mmol/L (21-32) Anion Gap 8 (6-14) Blood Urea Nitrogen 15 mg/dL (7-20) Creatinine 0.9 mg/dL (0.6-1.0) Estimated GFR (Cockcroft-Gault) 74.6 Glucose Level 89 mg/dL (70-99) Lactic Acid Level 1.0 mmol/L (0.4-2.0) Calcium Level 9.0 mg/dL (8.5-10.1) Magnesium Level 1.9 mg/dL (1.8-2.4) Total Bilirubin 0.2 mg/dL (0.2-1.0) Direct Bilirubin 0.1 mg/dL (0.0-0.2) Aspartate Amino Transferase (AST) 15 U/L (15-37) Alanine Aminotransferase (ALT) 23 U/L (14-59) Alkaline Phosphatase 73 U/L (46-116) Creatine Kinase 56 U/L (26-192) Troponin I Quantitative < 0.017 ng/mL (0-0.055) UV-Bag-B-Type Natriuretic Peptide 21 pg/mL (0-124) Total Protein 6.4 g/dL (6.4-8.2) Albumin 2.7 g/dL (3.4-5.0) L Amylase Level 48 U/L (25-115) Lipase 196 U/L (73-393) EKG EKG My interpretation EKG shows a sinus rhythm at 83 bpm. Has no acute morphology.[] Radiology/Procedures Radiology/Procedures My Interpretation acute abdomen shows prior gallbladder clips. No free air in the diaphragm. Stool throughout the colon. Consistent with constipation. See formal report when available[] Course & Med Decision Making Course & Med Decision Making Pertinent Labs and Imaging studies reviewed. (See chart for details). Patient stay on a clear fluid diet. No solids or milk products for 2 days. Continue clear fluid diet if continued abdomen pain. Continue Bactrim twice a day. Follow-up labs and pending cultures with primary. Follow-up at [facility] as scheduled. Take milk of magnesia 30 mL daily until stooling. Take Tylenol for pain. Continue dressing changes as previously directed. Zofran 8 mg 4 times a day for active nausea and vomiting [] Final Impression Final Impression 1. Generalized abdomen pain-constipation 2. Abdomen pannus cellulitis 3. staple line dehiscence 4. Morbid obesity[] 5. Nausea 6. delivery on 08/30-secondary to eclampsia 7. Anemia 11.1 hemoglobin 8. Malnutrition albumin 2.7 Dragon Disclaimer Dragon Disclaimer This electronic medical record was generated, in whole or in part, using a voice recognition dictation system. Discharge Summary Visit Information Final Diagnosis Problems Medical Problems: (1) Cellulitis Status: Acute (2) Constipation Status: Acute (3) Dehiscence of closure of skin Status: Acute (4) Pain in the abdomen Status: Acute Brief Hospital Course Allergies Allergies Coded Allergies Type Severity Reaction Last Updated Verified chlorpromazine Allergy Intermediate 05/07/18 No dicyclomine Allergy Intermediate 05/07/18 No duloxetine Allergy Intermediate 05/07/18 No fentanyl Allergy Intermediate 05/07/18 No ibuprofen Allergy Intermediate Hives 05/07/18 Yes ketorolac Allergy Intermediate 05/07/18 No promethazine Allergy Intermediate 05/07/18 No tramadol Allergy Intermediate 05/21/18 No Vital Signs Vital Signs Date Time Temp Pulse Resp B/P (MAP) Pulse Ox O2 Delivery O2 Flow Rate FiO2 09/10/18 22:42 98.4 102 24 98 Room Air 09/10/18 22:40 128/62 (84) Lab Results Laboratory Tests Test 09/10/18 23:05 White Blood Count 9.1 x10^3/uL (4.0-11.0) Red Blood Count 3.85 x10^6/uL (3.50-5.40) Hemoglobin 11.1 g/dL (12.0-15.5) Hematocrit 34.2 % (36.0-47.0) Mean Corpuscular Volume 89 fL (79-100) Mean Corpuscular Hemoglobin 29 pg (25-35) Mean Corpuscular Hemoglobin Concent 33 g/dL (31-37) Red Cell Distribution Width 16.6 % (11.5-14.5) Platelet Count 345 x10^3/uL (140-400) Neutrophils (%) (Auto) 52 % (31-73) Lymphocytes (%) (Auto) 38 % (24-48) Monocytes (%) (Auto) 7 % (0-9) Eosinophils (%) (Auto) 3 % (0-3) Basophils (%) (Auto) 1 % (0-3) Neutrophils # (Auto) 4.7 x10^3uL (1.8-7.7) Lymphocytes # (Auto) 3.4 x10^3/uL (1.0-4.8) Monocytes # (Auto) 0.6 x10^3/uL (0.0-1.1) Eosinophils # (Auto) 0.3 x10^3/uL (0.0-0.7) Basophils # (Auto) 0.0 x10^3/uL (0.0-0.2) Prothrombin Time 10.3 SEC (9.4-11.4) Prothromb Time International Ratio 1.0 (0.9-1.1) Activated Partial Thromboplast Time 24 SEC (23-33) Sodium Level 139 mmol/L (136-145) Potassium Level 4.5 mmol/L (3.5-5.1) Chloride Level 104 mmol/L (98-107) Carbon Dioxide Level 27 mmol/L (21-32) Anion Gap 8 (6-14) Blood Urea Nitrogen 15 mg/dL (7-20) Creatinine 0.9 mg/dL (0.6-1.0) Estimated GFR (Cockcroft-Gault) 74.6 Glucose Level 89 mg/dL (70-99) Lactic Acid Level 1.0 mmol/L (0.4-2.0) Calcium Level 9.0 mg/dL (8.5-10.1) Magnesium Level 1.9 mg/dL (1.8-2.4) Total Bilirubin 0.2 mg/dL (0.2-1.0) Direct Bilirubin 0.1 mg/dL (0.0-0.2) Aspartate Amino Transf (AST/SGOT) 15 U/L (15-37) Alanine Aminotransferase (ALT/SGPT) 23 U/L (14-59) Alkaline Phosphatase 73 U/L (46-116) Creatine Kinase 56 U/L (26-192) Troponin I Quantitative < 0.017 ng/mL (0-0.055) XG-Pml-I-Type Natriuretic Peptide 21 pg/mL (0-124) Total Protein 6.4 g/dL (6.4-8.2) Albumin 2.7 g/dL (3.4-5.0) Amylase Level 48 U/L (25-115) Lipase 196 U/L (73-393) Brief Hospital Course Ms. Orozco is a 28 old female who presented with abdomen pain, constipation, cellulitis and dehiscence. Discharge Information Condition at Discharge: Improved, Stable Disposition/Orders: D/C to Home Dischare Medications Current Medications Lactated Ringer's 1,000 ml @ 1,000 mls/hr Q1H IV Last administered on 09/10/18at 23:24; Admin Dose 1,000 MLS/HR; Start 09/10/18 at 23:00; Stop 09/10/18 at 23:59; Status DC Ondansetron HCl (Zofran) 4 mg 1X ONCE IV Last administered on 09/10/18at 23:12; Admin Dose 4 MG; Start 09/10/18 at 23:00; Stop 09/10/18 at 23:01; Status DC Morphine Sulfate (Morphine 10mg Syringe) 10 mg 1X ONCE SQ Last administered on 09/10/18at 23:13; Admin Dose 10 MG; Start 09/10/18 at 23:00; Stop 09/10/18 at 23:01; Status DC Ceftriaxone Sodium 1 gm/ Sodium Chloride 50 ml @ 100 mls/hr 1X ONCE IV Last administered on 6/15/19at 23:24; Admin Dose 100 MLS/HR; Start 09/10/18 at 23:00; Stop 09/10/18 at 23:29; Status DC Sodium Chloride 50 ml @ As Directed STK-MED ONCE .ROUTE ; Start 09/10/18 at 23:10; Stop 09/10/18 at 23:11; Status DC Ceftriaxone Sodium (Rocephin) 1 gm STK-MED ONCE .ROUTE ; Start 09/10/18 at 23:10; Stop 09/10/18 at 23:11; Status DC Magnesium Hydroxide (Milk Of Magnesia) 2,400 mg 1X ONCE PO Last administered on 09/11/18at 00:22; Admin Dose 2,400 MG; Start 09/11/18 at 00:30; Stop 09/11/18 at 00:31; Status DC Magnesium Hydroxide (Milk Of Magnesia) 2,400 mg STK-MED ONCE .ROUTE ; Start 09/11/18 at 00:20; Stop 09/11/18 at 00:21; Status DC Ondansetron HCl (Starter Pack - Zofran Odt) 1 startpack 1X ONCE PO Last administered on 09/11/18at 00:30; Admin Dose 1 STARTPACK; Start 09/11/18 at 00:30; Stop 09/11/18 at 00:57; Status DC Ondansetron HCl (Starter Pack - Zofran Odt) 1 startpack STK-MED ONCE PO ; Start 09/11/18 at 00:39; Stop 09/11/18 at 00:57; Status DC Active Scripts Active Acetaminophen 500 Mg Tablet 1,000 Mg PO QIDPRN PRN Zofran (Ondansetron Hcl) 8 Mg Tablet 8 Mg PO QIDPRN PRN Bactrim Ds Tablet (Sulfamethoxazole/Trimethoprim) 1 Each Tablet 1 Tab PO BID Milk Of Magnesia (Magnesium Hydroxide) 2,400 Mg/10 Ml Oral.susp 2,400 Mg PO DAILY 7 Days Zofran (Ondansetron Hcl) 8 Mg Tablet 8 Mg PO QIDPRN PRN Percocet 5-325 Mg Tablet (Oxycodone Hcl/Acetaminophen) 1 Each Tablet 1 Tab PO PRN Q6HRS PRN Zofran (Ondansetron Hcl) 8 Mg Tablet 8 Mg PO QIDPRN PRN Tylenol With Codeine #3 Tablet (Acetaminophen With Codeine) 1 Each Tablet 1 Tab PO Q4-6HRS Zofran (Ondansetron Hcl) 4 Mg Tablet 4 Mg PO Q6HRS PRN Oxycodon-Acetaminophen 2.5-325 (Oxycodone Hcl/Acetaminophen) 1 Each Tablet 1 Each PO Q8HRS PRN Percocet 5-325 Mg Tablet (Oxycodone Hcl/Acetaminophen) 1 Each Tablet 1 Tab PO PRN Q6HRS PRN Zofran Odt (Ondansetron) 8 Mg Tab.rapdis 8 Mg PO QIDPRN PRN Dragon Disclaimer This chart was dictated in whole or in part using Voice Recognition software in a busy, high-work load, and often noisy Emergency Department environment. It may contain unintended and wholly unrecognized errors or omissions. KAREN BACA MD Sep 10, 2018 22:39
[2018-09-10 22:42] VITALS: BP 128/62
[2018-09-10] MEDS ORDERED: cefTRIAXone SODIUM 1 GM VIAL ONE (23:10)
[2018-09-10] MEDS ORDERED: IV NORMAL SALINE 50ML 50 ML ONE (23:10)
[2018-09-10] MEDS: ONDANSETRON PF 4 MG/2 ML VIAL. IV ONE (23:12)
[2018-09-10] MEDS: MORPHINE SULFATE 10 MG/ML SYRINGE. SQ ONE (23:13)
[2018-09-10] MEDS: IV RINGERS SOLUTION,LACTATED 1,000 ML IV SCH (23:24)
[2018-09-10 23:28] LABS: BASO % 1 % (0-3); EOS # 0.3 x10^3/uL (0.0-0.7); EOS % 3 % (0-3); HEMATOCRIT 34.2 % (36.0-47.0); HEMOGLOBIN 11.1 g/dL (12.0-15.5); LYMPH # 3.4 x10^3/uL (1.0-4.8); LYMPH % 38 % (24-48); MEAN CORPUSCULAR HEMOGLOBIN 29 pg (25-35); MEAN CORPUSCULAR HGB CONC 33 g/dL (31-37); MEAN CORPUSCULAR VOLUME 89 fL (79-100); MONO # 0.6 x10^3/uL (0.0-1.1); MONO % 7 % (0-9); NEUT # 4.7 x10^3uL (1.8-7.7); NEUT % 52 % (31-73); PLATELET COUNT 345 x10^3/uL (140-400); RED BLOOD COUNT 3.85 x10^6/uL (3.50-5.40); RED CELL DISTRIBUTION WIDTH 16.6 % (11.5-14.5); WHITE BLOOD COUNT 9.1 x10^3/uL (4.0-11.0)
[2018-09-10 23:48] LABS: ALBUMIN 2.7 g/dL (3.4-5.0); CREATININE 0.9 mg/dL (0.6-1.0); DIRECT BILIRUBIN 0.1 mg/dL (0.0-0.2); GFR 74.6; MAGNESIUM 1.9 mg/dL (1.8-2.4); POTASSIUM 4.5 mmol/L (3.5-5.1); TOTAL BILIRUBIN 0.2 mg/dL (0.2-1.0); TOTAL PROTEIN 6.4 g/dL (6.4-8.2)
--- NOTE | 2018-09-10 23:57 | RAD ---
EXAM: Frontal view of the chest, AP views of the abdomen in upright and supine positions. CLINICAL INDICATION: COMPARISON: None. FINDINGS and IMPRESSION: The heart is not enlarged. Mediastinal and hilar contours are normal. No focal parenchymal airspace opacity. No pleural effusion or pneumothorax. No abnormal small or large bowel dilatation. Moderate to large volume colonic stool content. No abnormal soft tissue mass effect. No suspicious calcifications are seen. No free intraperitoneal gas. Cholecystectomy clips are seen. Electronically signed by: Cristo Richardson MD (09/10/2018 11:54 PM) [facility]
[2018-09-11] MEDS ORDERED: MAGN2400 PO (00:15)
[2018-09-11] MEDS ORDERED: ACET500T68 PO (00:15)
[2018-09-11] MEDS ORDERED: ONDA8TAB9 PO (00:15)
[2018-09-11] MEDS ORDERED: SULF1TAB24 PO (00:15)
[2018-09-11] MEDS ORDERED: MAGNESIUM HYDROXIDE 2,400 MG/30 ML ORAL.SUSP. ONE (00:20)
[2018-09-11] MEDS: MAGNESIUM HYDROXIDE 2,400 MG/30 ML ORAL.SUSP. PO ONE (00:22)
[2018-09-11] MEDS: ONDANSETRON 4MG ODT 4TABLET STARTPACK. PO ONE (00:30)
[2018-09-11] MEDS ORDERED: ONDANSETRON 4MG ODT 4TABLET STARTPACK. PO ONE (00:39)
--- NOTE | 2018-09-12 06:53 | EKG ---
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
== END 2018-09-11 00:54 | disposition home or self-care (01) ==
LOC: ER 22:37
DX: O90.0 Disruption of cesarean delivery wound (principal); O90.89 Other complications of the puerperium, not elsewhere classified; L03.311 Cellulitis of abdominal wall; K59.00 Constipation, unspecified; O99.215 Obesity complicating the puerperium; E66.01 Morbid (severe) obesity due to excess calories; O90.81 Anemia of the puerperium; O25.3 Malnutrition in the puerperium; O99.345 Other mental disorders complicating the puerperium; F41.9 Anxiety disorder, unspecified; F31.9 Bipolar disorder, unspecified; O99.335 Smoking (tobacco) complicating the puerperium; Z68.44 Body mass index [BMI] 60.0-69.9, adult; Z87.442 Personal history of urinary calculi; Z98.890 Other specified postprocedural states; Z88.6 Allergy status to analgesic agent; Z88.8 Allergy status to other drugs, medicaments and biological substances; Z88.1 Allergy status to other antibiotic agents
CPT/HCPCS: 36415; 74022; 80048; 80076; 82150; 82550; 83605; 83690; 83735; 83880; 84443; 84484; 85025; 85610; 85730; 87040; 93005; 96372; 96374; 96375; 99285; J0696; J2270; J2405; J7120; Q0162

== ENCOUNTER 2018-10-08 21:44 | Emergency (ER) | payer OTHER ==
[~2018-10-08 21:44] MED LIST changes: +ACET500T68 PO; +MAGN2400 PO; +SULF1TAB24 PO
[2018-10-08 22:01] VITALS: BP 148/95
[2018-10-08] MEDS ORDERED: IV NORMAL SALINE 1,000ML 1,000 ML IV ONE (22:15)
--- NOTE | 2018-10-08 22:17 | PHYS DOC ---
Past History Past Medical History: Anxiety, Bipolar, Endometriosis, Kidney Stones, Other Past Surgical History: Cholecystectomy, Smoking: Cigarettes Alcohol Use: None Drug Use: None Adult General Chief Complaint Chief Complaint: NAUSEA/VOMITING/DIARRHEA HPI HPI Patient is a 28-year-old female presents with continued abdominal pain, nausea and vomiting, and drainage from her incision after having a on August 30, 2018. She had phillip removed due to possible infection a week later. She was seen several days after that, started on Bactrim for cellulitis. She completed the course of Bactrim. So her [employer] between 10 and 14 days ago, and was started on clindamycin due to a reported abscess. She has had continued nausea and vomiting and has been unable to tolerate the Zofran tablets. She reports that she is normally given Zofran oral dissolving tablets. She reports that she gets itchy with hydrocodone tablets. Nothing makes the pain better or worse. Denies any blood in the emesis. She reports that she has taken up smoking again since giving . [] Review of Systems Review of Systems Constitutional: Denies fever or chills [] Eyes: Denies change in visual acuity, redness, or eye pain [] HENT: Denies nasal congestion or sore throat [] Respiratory: Denies cough or shortness of breath [] Cardiovascular: No chest pain or palpitations[] GI: Denies bloody stools or diarrhea, see history of present illness [] : Denies dysuria or hematuria [] Musculoskeletal: Denies back pain or joint pain [] Integument: Denies rash or skin lesions [] Neurologic: Denies headache, focal weakness or sensory changes [] Endocrine: Denies polyuria or polydipsia [] All other systems were reviewed and found to be within normal limits, except as documented in this note. Current Medications Current Medications Current Medications Medications (Trade) Dose Ordered Sig/Gina Start Time Stop Time Status Last Admin Dose Admin Ondansetron HCl (Zofran) 8 mg 1X ONCE 10/08/18 22:15 10/08/18 22:16 UNV Sodium Chloride 1,000 ml @ 1,000 mls/hr 1X ONCE 10/08/18 22:15 10/08/18 23:14 UNV Allergies Allergies Allergies Coded Allergies Type Severity Reaction Last Updated Verified chlorpromazine Allergy Intermediate 05/07/18 No dicyclomine Allergy Intermediate 05/07/18 No duloxetine Allergy Intermediate 05/07/18 No fentanyl Allergy Intermediate 05/07/18 No ibuprofen Allergy Intermediate Hives 05/07/18 Yes ketorolac Allergy Intermediate 05/07/18 No promethazine Allergy Intermediate 05/07/18 No tramadol Allergy Intermediate 05/21/18 No Physical Exam Physical Exam Constitutional: Well developed, well nourished, no acute distress, non-toxic appearance. [] HENT: Normocephalic, atraumatic, bilateral external ears normal, oropharynx mo ist, no oral exudates, nose normal. [] Eyes: PERRLA, EOMI, conjunctiva normal, no discharge. [] Neck: Normal range of motion, no tenderness, supple, no stridor. [] Cardiovascular:Heart rate regular rhythm, no murmur [] Lungs & Thorax: Bilateral breath sounds clear to auscultation [] Abdomen: Bowel sounds normal, soft, obese, no tenderness, no masses, no pulsatile masses. Incision appears to be healing well. No drainage from the incision, no bleeding.[] Skin: Warm, dry, no erythema, no rash. [] Back: No tenderness, no CVA tenderness. [] Extremities: No tenderness, no cyanosis, no clubbing, ROM intact, no edema. [] Neurologic: Alert and oriented X 3, normal motor function, normal sensory funct ion, no focal deficits noted. [] Psychologic: Affect normal, judgement normal, mood normal. [] Current Patient Data Vital Signs Vital Signs Date Time Temp Pulse Resp B/P (MAP) Pulse Ox O2 Delivery O2 Flow Rate FiO2 10/08/18 22:01 98.1 98 18 98 Room Air EKG EKG [] Radiology/Procedures Radiology/Procedures PROCEDURE: CT ABDOMEN PELVIS WO CONTRAST CT scan of the abdomen and pelvis without contrast 10/08/2018 CLINICAL HISTORY: Right-sided abdominal pain. one month ago. TECHNIQUE: unenhanced, contiguous, 3 mm axial sections were obtained through the abdomen and pelvis. One or more of the following individualized dose reduction techniques were utilized for this study: 1. Automated exposure control. 2. Adjustment of the mA and/or kV according to patient size. 3. Use of iterative reconstruction technique. FINDINGS: Comparison study is dated 09/06/2017. Images through the lung bases demonstrate minimal dependent subsegmental atelectasis bilaterally. The liver parenchyma has a decreased attenuation consistent with fatty infiltration. The spleen, pancreas, adrenal glands and kidneys are within normal limits. The abdominal aorta tapers normally. Surgical clips are seen within the gallbladder fossa consistent with a cholecystectomy. No free fluid or free air is seen within the abdomen. There is no evidence of bowel obstruction. The appendix is partially visualized and is within normal limits. Increased density is seen within the subcutaneous fat of the lower anterior abdominal wall. This likely represents edema. An oval-shaped fluid collection is seen immediately anterior to the medial aspect of the right rectus abdominous muscle near the umbilicus. It measures 5 cm in greatest diameter. It has a nonspecific CT appearance. It could represent a seroma. An abscess is not excluded. Images through the pelvis demonstrate the urinary bladder distended with urine. No adnexal mass is seen. No free fluid is noted. No pelvic hematoma is seen. A punctate calcification is seen within the left pelvis consistent with a phlebolith. The osseous structures are grossly intact. IMPRESSION: 1. 5 cm oval-shaped fluid collection is seen within the anterior abdominal wall anterior to the medial aspect of the right rectus muscle near the umbilicus. Its CT appearance is nonspecific. It could represent a seroma. An abscess is not excluded. 2. No additional acute abnormality is seen.[] Course & Med Decision Making Course & Med Decision Making Pertinent Labs and Imaging studies reviewed. (See chart for details) ED course: Patient arrived, was placed in bed, and tolerated exam well. IV access was established, she was given IV fluids as well as antiemetics and narcotic pain medicine. Review of records shows that she was at [facility] 2 days ago and that chart was reviewed. No imaging was obtained at that time. Given her pain elected to perform imaging. K tracs was also reviewed. Which shows that since September 29, 2018 she is been prescribed 44 narcotic tablets between oxycodone acetaminophen and hydrocodone and acetaminophen from 4 different healthcare professionals. After the return of the laboratory and imaging studies, these were discussed with the patient who voiced understanding. All questions were answered. She was discharged in improved condition. Medical decision making: There is a 5 cm area that may be a seroma versus abscess. Patient is reportedly on antibiotics for this. She has normal white count, nontoxic patient. Have instructed her to follow up closely with her [employer] team in 2 days for further evaluation. We will not prescribe narcotic medicines for reasons noted above. There is no evidence of oral intake intolerance, however will place patient on Zofran oral dissolving tablets to help with this reported nausea and vomiting.[] Dragon Disclaimer Dragon Disclaimer This electronic medical record was generated, in whole or in part, using a voice recognition dictation system. Departure Departure: Impression: Primary Impression: Abdominal pain Additional Impression: Nausea and vomiting Disposition: HOME, SELF-CARE Condition: IMPROVED Referrals: PCP,NO (PCP) Patient Instructions: Abdominal Pain, Abscess, Nausea and Vomiting Additional Instructions: Drink plenty of fluids, frequent small sips. No fatty foods, no milk, and no pepper for the next 48 hours. For the next 48 hours eat a diet rich in carbohydrates with foods such as bananas, rice, applesauce, and toast. Follow-up with your primary care team in 2 days. Return to the ER if worsening pain, unable to tolerate liquids, or any other concerns. Scripts Ondansetron Hcl (ZOFRAN) 8 Mg Tablet 1 TAB PO Q8HRS for n/v, #30 TAB 0 Refills Prov: WILLI YEE DO 10/09/18 Problem Qualifiers Primary Impression: Abdominal pain Abdominal location: right lower quadrant Qualified Codes: R10.31 - Right lower quadrant pain Additional Impression: Nausea and vomiting Vomiting type: unspecified Vomiting Intractability: non-intractable Qualified Codes: R11.2 - Nausea with vomiting, unspecified WILLI YEE DO Oct 08, 2018 22:17
[2018-10-08] MEDS ORDERED: MORPHINE SULFATE 10 MG/ML SYRINGE. IV ONE (22:30)
[2018-10-08] MEDS ORDERED: ONDANSETRON PF 4 MG/2 ML VIAL. IV ONE (22:30)
[2018-10-08 22:42] LABS: BASO # 0.1 x10^3/uL (0.0-0.2); BASO % 1 % (0-3); EOS # 0.4 x10^3/uL (0.0-0.7); EOS % 5 % (0-3); HEMOGLOBIN 10.8 g/dL (12.0-15.5); LYMPH # 2.7 x10^3/uL (1.0-4.8); LYMPH % 33 % (24-48); MEAN CORPUSCULAR HEMOGLOBIN 28 pg (25-35); MEAN CORPUSCULAR HGB CONC 32 g/dL (31-37); MEAN CORPUSCULAR VOLUME 87 fL (79-100); MONO # 0.5 x10^3/uL (0.0-1.1); MONO % 5 % (0-9); NEUT # 4.6 x10^3uL (1.8-7.7); NEUT % 56 % (31-73); PLATELET COUNT 319 x10^3/uL (140-400); RED BLOOD COUNT 3.91 x10^6/uL (3.50-5.40); RED CELL DISTRIBUTION WIDTH 16.1 % (11.5-14.5); WHITE BLOOD COUNT 8.3 x10^3/uL (4.0-11.0)
[2018-10-08 22:54] LABS: CALCIUM 9.3 mg/dL (8.5-10.1); CREATININE 0.9 mg/dL (0.6-1.0); GFR 74.6
--- NOTE | 2018-10-08 23:31 | RAD ---
CT scan of the abdomen and pelvis without contrast 10/08/2018 CLINICAL HISTORY: Right-sided abdominal pain. one month ago. TECHNIQUE: unenhanced, contiguous, 3 mm axial sections were obtained through the abdomen and pelvis. One or more of the following individualized dose reduction techniques were utilized for this study: 1. Automated exposure control. 2. Adjustment of the mA and/or kV according to patient size. 3. Use of iterative reconstruction technique. FINDINGS: Comparison study is dated 09/06/2017. Images through the lung bases demonstrate minimal dependent subsegmental atelectasis bilaterally. The liver parenchyma has a decreased attenuation consistent with fatty infiltration. The spleen, pancreas, adrenal glands and kidneys are within normal limits. The abdominal aorta tapers normally. Surgical clips are seen within the gallbladder fossa consistent with a cholecystectomy. No free fluid or free air is seen within the abdomen. There is no evidence of bowel obstruction. The appendix is partially visualized and is within normal limits. Increased density is seen within the subcutaneous fat of the lower anterior abdominal wall. This likely represents edema. An oval-shaped fluid collection is seen immediately anterior to the medial aspect of the right rectus abdominous muscle near the umbilicus. It measures 5 cm in greatest diameter. It has a nonspecific CT appearance. It could represent a seroma. An abscess is not excluded. Images through the pelvis demonstrate the urinary bladder distended with urine. No adnexal mass is seen. No free fluid is noted. No pelvic hematoma is seen. A punctate calcification is seen within the left pelvis consistent with a phlebolith. The osseous structures are grossly intact. IMPRESSION: 1. 5 cm oval-shaped fluid collection is seen within the anterior abdominal wall anterior to the medial aspect of the right rectus muscle near the umbilicus. Its CT appearance is nonspecific. It could represent a seroma. An abscess is not excluded. 2. No additional acute abnormality is seen. Electronically signed by: Danny Beavers MD (10/08/2018 11:28 PM) [facility]
[2018-10-09 00:05] LABS: PREG TEST PT QUAL NEGATIVE (NEG)
[2018-10-09] MEDS ORDERED: ONDA8TAB9 PO (00:06)
[2018-10-09 00:29] LABS: BILIRUBIN,URINE NEG (NEG); CLARITY,URINE CLEAR; COLOR,URINE YELLOW; GLUCOSE,URINE NEG (NEG)
[2018-10-09 00:30] LABS: BACTERIA,URINE 0 /HPF (0-FEW); NITRITE,URINE NEG (NEG); RBC,URINE OCC /HPF (0-2); SQUAMOUS EPITHELIAL CELL,UR MOD /LPF; UROBILINOGEN,URINE 0.2 mg/dL (0.2 mg/dL)
[2018-10-09 00:35] LABS: AMPHETAMINE/METHAMPHETAMINE NEG (NEG); BARBITURATES NEG (NEG); BENZODIAZEPINES NEG (NEG); CANNABINOIDS NEG (NEG); COCAINE NEG (NEG); METHADONE NEG (NEG); OPIATES POS (NEG); PHENCYCLIDINE NEG (NEG)
== END 2018-10-09 00:10 | disposition home or self-care (01) ==
LOC: ER 21:44
DX: O90.89 Other complications of the puerperium, not elsewhere classified (principal); R10.31 Right lower quadrant pain; R11.2 Nausea with vomiting, unspecified; F17.210 Nicotine dependence, cigarettes, uncomplicated; Z88.1 Allergy status to other antibiotic agents; Z87.442 Personal history of urinary calculi; Z90.49 Acquired absence of other specified parts of digestive tract; Z88.8 Allergy status to other drugs, medicaments and biological substances; Z88.6 Allergy status to analgesic agent; Z98.890 Other specified postprocedural states
CPT/HCPCS: 36415; 74176; 80048; 80307; 81001; 81025; 84703; 85025; 87040; 96361; 96374; 96375; 99285; J2270; J2405; J7030

== ENCOUNTER 2018-10-22 12:25 | Emergency (ER) | payer OTHER ==
[~2018-10-22] VITALS: Ht 162.6 cm; Wt 179.0 kg
[2018-10-22] MEDS ORDERED: IV NORMAL SALINE 1,000ML 1,000 ML IV ONE (13:00)
[2018-10-22] MEDS ORDERED: MORPHINE SULFATE 4 MG/ML DISP.SYRIN. IV ONE ×3 (13:00→15:30)
[2018-10-22] MEDS ORDERED: ONDANSETRON PF 4 MG/2 ML VIAL. IV ONE ×2 (13:00→14:15)
--- NOTE | 2018-10-22 13:06 | PHYS DOC ---
Past History Past Medical History: Anxiety, Bipolar, Endometriosis, Kidney Stones, Other Past Surgical History: Cholecystectomy, Smoking: Cigarettes Alcohol Use: None Drug Use: None Adult General Chief Complaint Chief Complaint: POST-OP PROBLEM HPI HPI 28-year-old female presents with abdominal pain. The patient had a August 30. She then had a nonhealing abdominal incision. She developed cellulitis and an abscess. She was placed on antibiotics and her condition had improved. She comes to the ED today because the pain in the right side of the incision has started again. She also had some drainage at the incision site again overnight. It has not been draining for the last couple weeks. She is concerned she may have redeveloped an infection. She is no longer taking any antibiotics. She denies any new trauma or injuries. She does not complain of any other new symptoms. She is unsure if she has had a fever at home. She denies chills. Review of Systems Review of Systems Constitutional: Denies fever or chills [] Eyes: Denies change in visual acuity, redness, or eye pain [] HENT: Denies nasal congestion or sore throat [] Respiratory: Denies cough or shortness of breath [] Cardiovascular: No additional information not addressed in HPI [] GI: Right sided abdominal pain, nausea, vomiting. Denies bloody stools or diarrhea [] : Denies dysuria or hematuria [] Musculoskeletal: Denies back pain or joint pain [] Integument: Concern for cellulitis[] Neurologic: Denies headache, focal weakness or sensory changes [] Endocrine: Denies polyuria or polydipsia [] All other systems were reviewed and found to be within normal limits, except as documented in this note. Current Medications Current Medications Current Medications Medications (Trade) Dose Ordered Sig/Gina Start Time Stop Time Status Last Admin Dose Admin Iohexol (Omnipaque 300 Mg/ml) 75 ml 1X ONCE 10/22/18 13:00 10/22/18 13:01 UNV Morphine Sulfate (Morphine 4mg Syringe) 4 mg 1X ONCE 10/22/18 13:00 10/22/18 13:01 DC Ondansetron HCl (Zofran) 4 mg 1X ONCE 10/22/18 13:00 10/22/18 13:01 DC Sodium Chloride 1,000 ml @ 1,000 mls/hr 1X ONCE 10/22/18 13:00 10/22/18 13:59 Allergies Allergies Allergies Coded Allergies Type Severity Reaction Last Updated Verified chlorpromazine Allergy Intermediate 10/22/18 No dicyclomine Allergy Intermediate 10/22/18 No duloxetine Allergy Intermediate 10/22/18 No fentanyl Allergy Intermediate 10/22/18 No ibuprofen Allergy Intermediate Hives 10/22/18 Yes ketorolac Allergy Intermediate 10/22/18 No promethazine Allergy Intermediate 05/07/18 No tramadol Allergy Intermediate 05/21/18 No Physical Exam Physical Exam Constitutional: Well developed, morbidly obese, well nourished, mild acute distress, non-toxic appearance. [] HENT: Normocephalic, atraumatic, bilateral external ears normal, oropharynx moist, no oral exudates, nose normal. [] Eyes: PERRLA, EOMI, conjunctiva normal, no discharge. [] Neck: Normal range of motion, no tenderness, supple, no stridor. [] Cardiovascular:Heart rate regular rhythm, no murmur [] Lungs & Thorax: Bilateral breath sounds clear to auscultation [] Abdomen: Bowel sounds normal, soft, right sided tenderness, no immediately palpable masses, mild erythema of the lower pannus. No current drainage from the vertical incision.[] Skin: Warm, dry, no erythema, no rash. [] Back: No tenderness, no CVA tenderness. [] Extremities: No tenderness, no cyanosis, no clubbing, ROM intact, no edema. [] Neurologic: Alert and oriented X 3, normal motor function, normal sensory function, no focal deficits noted. [] Psychologic: Affect normal, judgement normal, mood normal. [] EKG EKG [] Radiology/Procedures Radiology/Procedures [] Impressions: CT abdomen pelvis without contrast. HISTORY: Abdominal pain, history of abscess CT scan of the abdomen and pelvis was done without contrast. Lung bases are clear. There is no effusion. A liver lesion is not identified. The patient's had a cholecystectomy. Spleen and adrenal glands are normal. Pancreas is normal. There is no mass or hydronephrosis in the kidneys. There is no adenopathy or ascites. Bowel pattern is normal. Uterus and ovaries are normal. Appendix is normal. There is an anterior abdominal wall small fluid collection measuring 1.7 cm in diameter and 4.6 cm in length on the coronal reconstructions. The fluid collection is marginally decreased compared to the study of September 08 when it measured 3.2 x 6.2 cm. The anterior abdominal wall is not entirely included on the current study. There is a small hernia. There is a bowel loop immediately adjacent to the abscess in the abdominal wall. There is no bowel obstruction. IMPRESSION: 1. Persistent anterior abdominal wall abscess marginally decreased from the last study. 2. No bowel obstruction. 3. No other acute finding noted. Electronically signed by: Baltazar Hernandez MD (10/22/2018 1:45 PM) [facility] DICTATED AND SIGNED BY: BALTAZAR HERNANDEZ MD DATE: 10/22/18 [id number] CC: YASMINE CONNOR DO; PCP,MANDI ~ Course & Med Decision Making Course & Med Decision Making Pertinent Labs and Imaging studies reviewed. (See chart for details) The patient continues to have an abdominal wall abscess. There is a loop of bowel immediately adjacent to this abscess. The abscess is slightly smaller than on previous study. See official report for more details. The patient's labs are unremarkable. She has not had an elevated white count. The patient does not have a fever. We checked it twice. She does not have signs of sepsis. Her heart rate is limits. I will put her back on clindamycin. We will give the first dose here in the ED by IV. The patient has requested that she go home if at all possible because she needs to take care of her child and her is her used all of his vacation time due to her complications. She has an appointment in 2 days with OB. I have offered her admission to the hospital, but she is very hesitant. I believe that this is a reasonable course of action to let her go home. She does not have a fever. I have given her strict instructions that if she does develop a fever or her pain worsens, she must return to the emergency room. I will discharge her on oral clindamycin. She is stable for discharge at this time. [] Dragon Disclaimer Dragon Disclaimer This electronic medical record was generated, in whole or in part, using a voice recognition dictation system. Departure Departure: Impression: Primary Impression: Abdominal wall abscess at site of surgical wound Disposition: HOME, SELF-CARE Condition: STABLE Referrals: PCP,MANDI (PCP) Patient Instructions: Abscess, [id number] Scripts Ondansetron (ONDANSETRON ODT) 4 Mg Tab.rapdis 1 TAB PO PRN Q6-8HRS PRN for VOMITING, #16 TAB Prov: YASMINE CONNOR DO 10/22/18 Hydrocodone Bit/Acetaminophen (NORCO 5-325 TABLET) 1 Each Tablet 1 TAB PO PRN Q6HRS PRN for PAIN, #10 TAB 0 Refills Prov: YASMINE CONNOR DO 10/22/18 Clindamycin Hcl (CLINDAMYCIN HCL) 300 Mg Capsule 1 CAP PO TID for abdominal wall abscess for 10 Days, #30 CAP Prov: YASMINE CONNOR DO 10/22/18 YASMINE CONNOR DO Oct 22, 2018 13:06
[2018-10-22] MEDS ORDERED: IOHEXOL 300 MG/ML 75 ML VIAL. IV ONE (13:15)
[2018-10-22 13:28] LABS: BASO # 0.1 x10^3/uL (0.0-0.2); BASO % 1 % (0-3); EOS # 0.3 x10^3/uL (0.0-0.7); EOS % 3 % (0-3); HEMATOCRIT 37.7 % (36.0-47.0); HEMOGLOBIN 12.1 g/dL (12.0-15.5); LYMPH # 2.3 x10^3/uL (1.0-4.8); LYMPH % 26 % (24-48); MEAN CORPUSCULAR HEMOGLOBIN 27 pg (25-35); MEAN CORPUSCULAR HGB CONC 32 g/dL (31-37); MEAN CORPUSCULAR VOLUME 85 fL (79-100); MONO # 0.4 x10^3/uL (0.0-1.1); MONO % 5 % (0-9); NEUT # 5.7 x10^3uL (1.8-7.7); NEUT % 65 % (31-73); PLATELET COUNT 302 x10^3/uL (140-400); RED BLOOD COUNT 4.44 x10^6/uL (3.50-5.40); RED CELL DISTRIBUTION WIDTH 16.4 % (11.5-14.5); WHITE BLOOD COUNT 8.8 x10^3/uL (4.0-11.0)
[2018-10-22 13:42] LABS: ALBUMIN 3.3 g/dL (3.4-5.0); ALBUMIN/GLOBULIN RATIO 0.8 (1.0-1.7); CALCIUM 9.6 mg/dL (8.5-10.1); CREATININE 0.7 mg/dL (0.6-1.0); GFR 99.6; POTASSIUM 4.1 mmol/L (3.5-5.1); TOTAL BILIRUBIN 0.3 mg/dL (0.2-1.0); TOTAL PROTEIN 7.5 g/dL (6.4-8.2)
--- NOTE | 2018-10-22 13:48 | RAD ---
CT abdomen pelvis without contrast. HISTORY: Abdominal pain, history of abscess CT scan of the abdomen and pelvis was done without contrast. Lung bases are clear. There is no effusion. A liver lesion is not identified. The patient's had a cholecystectomy. Spleen and adrenal glands are normal. Pancreas is normal. There is no mass or hydronephrosis in the kidneys. There is no adenopathy or ascites. Bowel pattern is normal. Uterus and ovaries are normal. Appendix is normal. There is an anterior abdominal wall small fluid collection measuring 1.7 cm in diameter and 4.6 cm in length on the coronal reconstructions. The fluid collection is marginally decreased compared to the study of September 08 when it measured 3.2 x 6.2 cm. The anterior abdominal wall is not entirely included on the current study. There is a small hernia. There is a bowel loop immediately adjacent to the abscess in the abdominal wall. There is no bowel obstruction. IMPRESSION: 1. Persistent anterior abdominal wall abscess marginally decreased from the last study. 2. No bowel obstruction. 3. No other acute finding noted. Electronically signed by: Baltazar Bar MD (10/22/2018 1:45 PM) [facility]
[2018-10-22 14:10] LABS: BACTERIA,URINE MOD /HPF (0-FEW); BILIRUBIN,URINE NEG (NEG); CLARITY,URINE HAZY; COLOR,URINE YELLOW; GLUCOSE,URINE NEG (NEG); NITRITE,URINE NEG (NEG); RBC,URINE 0 /HPF (0-2); SQUAMOUS EPITHELIAL CELL,UR MANY /LPF; UROBILINOGEN,URINE 0.2 mg/dL (0.2 mg/dL)
[2018-10-22] MEDS ORDERED: CLIN300C8 PO (14:43)
[2018-10-22] MEDS ORDERED: CLINDAMYCIN 600MG PREMIX 50 ML IV ONE (14:45)
[2018-10-22] MEDS ORDERED: ONDA4TAB12 PO (16:14)
[2018-10-22] MEDS ORDERED: HYDR-3165 PO (16:14)
[2018-10-22 16:15] VITALS: BP 152/97
== END 2018-10-22 16:15 | disposition home or self-care (01) ==
LOC: ER 12:25
DX: T81.49XA Infection following a procedure, other surgical site, initial encounter (principal); L02.211 Cutaneous abscess of abdominal wall; R11.2 Nausea with vomiting, unspecified; F17.210 Nicotine dependence, cigarettes, uncomplicated; Z87.442 Personal history of urinary calculi; Z90.49 Acquired absence of other specified parts of digestive tract; Z98.890 Other specified postprocedural states; Z88.1 Allergy status to other antibiotic agents; Z88.8 Allergy status to other drugs, medicaments and biological substances; Z88.6 Allergy status to analgesic agent
CPT/HCPCS: 36415; 74177; 80053; 81001; 85025; 87086; 96361; 96365; 96375; 96376; 99285; J2270; J2405; J3490; Q9967; J7030

== ENCOUNTER 2018-10-31 18:39 | Emergency (ER) | payer OTHER ==
[~2018-10-31] VITALS: Ht 162.6 cm; Wt 179.0 kg
[~2018-10-31 18:39] MED LIST changes: +CLIN300C8 PO; +ONDA4TAB12 PO
[2018-10-31 19:02] VITALS: BP 120/84
[2018-10-31 20:51] LABS: AMPHETAMINE/METHAMPHETAMINE NEG (NEG); BARBITURATES NEG (NEG); BENZODIAZEPINES NEG (NEG); CANNABINOIDS NEG (NEG); COCAINE NEG (NEG); METHADONE NEG (NEG); OPIATES POS (NEG); PHENCYCLIDINE NEG (NEG)
[2018-10-31 20:57] LABS: BACTERIA,URINE MOD /HPF (0-FEW); BILIRUBIN,URINE NEG (NEG); CLARITY,URINE HAZY; COLOR,URINE YELLOW; GLUCOSE,URINE NEG (NEG); NITRITE,URINE NEG (NEG); RBC,URINE RARE /HPF (0-2); SQUAMOUS EPITHELIAL CELL,UR MANY /LPF; UROBILINOGEN,URINE 0.2 mg/dL (0.2 mg/dL)
[2018-10-31] MEDS ORDERED: metroNIDAZOLE 500 MG TABLET ONE (21:07)
[2018-10-31] MEDS ORDERED: MORPHINE SULFATE 10 MG/ML SYRINGE. ONE (21:08)
[2018-10-31] MEDS ORDERED: ONDA8TAB9 PO (21:09)
[2018-10-31] MEDS ORDERED: METR500T PO (21:09)
[2018-10-31] MEDS ORDERED: ONDANSETRON ODT 4 MG TAB.RAPDIS PO ONE (21:15)
[2018-10-31] MEDS ORDERED: MORPHINE SULFATE 10 MG/ML SYRINGE. SQ ONE (21:15)
[2018-10-31] MEDS ORDERED: metroNIDAZOLE 500 MG TABLET PO ONE (21:15)
--- NOTE | 2018-11-03 19:03 | ED.ADGEN ---
Past History Past Medical History: Anxiety, Bipolar, Endometriosis, Kidney Stones, Other Past Surgical History: Cholecystectomy, Smoking: Cigarettes Alcohol Use: None Drug Use: None Adult General Chief Complaint Chief Complaint " .... Ms. my surgery follow-up at ... Won't have enough antibiotics to cover me until my next appointment"... HPI HPI Patient is a 28 year old female who presents with above complaints and history. Patient complaining of generalized abdomen pain in area of surgical suture line. Patient follows at for all care. Patient concerned about some area of incisional pain seroma. He did miss her follow-up appointment at surgery clinic at . No history immunosuppression. No history of travel. Denies specific ill contacts. Review of Systems Review of Systems Constitutional: Denies fever or chills [] Eyes: Denies change in visual acuity, redness, or eye pain [] HENT: Denies nasal congestion or sore throat [] Respiratory: Denies cough or shortness of breath [] Cardiovascular: No additional information not addressed in HPI [] GI: Denies abdominal pain, nausea, vomiting, bloody stools or diarrhea [] Complaints of some generalized abdomen pain and concerned about a seroma, along her surgery suture line : Denies dysuria or hematuria [] Musculoskeletal: Denies back pain or joint pain [] Integument: Denies rash or skin lesions [] Neurologic: Denies headache, focal weakness or sensory changes [] Endocrine: Denies polyuria or polydipsia [] All other systems were reviewed and found to be within normal limits, except as documented in this note. Family History Family History Noncontributory Current Medications Current Medications Current Medications Medications (Trade) Dose Ordered Sig/Gina Start Time Stop Time Status Last Admin Dose Admin Metronidazole (Flagyl) 500 mg STK-MED ONCE 10/31/18 21:07 10/31/18 21:08 DC Morphine Sulfate (Morphine 10mg Syringe) 10 mg STK-MED ONCE 10/31/18 21:08 10/31/18 21:09 DC Ondansetron HCl (Zofran Odt) 8 mg 1X ONCE 10/31/18 21:15 10/31/18 21:16 DC 10/31/18 21:14 8 MG Allergies Allergies Allergies Coded Allergies Type Severity Reaction Last Updated Verified chlorpromazine Allergy Intermediate 10/22/18 No dicyclomine Allergy Intermediate 10/22/18 No duloxetine Allergy Intermediate 10/22/18 No fentanyl Allergy Intermediate 10/22/18 No ibuprofen Allergy Intermediate Hives 10/22/18 Yes ketorolac Allergy Intermediate 10/22/18 No promethazine Allergy Intermediate 05/07/18 No tramadol Allergy Intermediate 05/21/18 No Physical Exam Physical Exam Constitutional: Mild to moderate acute distress, non-toxic appearance. [] HENT: Normocephalic, atraumatic, bilateral external ears normal, oropharynx moist, no oral exudates, nose normal. [] Eyes: PERRLA, EOMI, conjunctiva normal, no discharge. [] Neck: Normal range of motion, no tenderness, supple, no stridor. [] Cardiovascular:Heart rate regular rhythm, no murmur [] Lungs & Thorax: Bilateral breath sounds clear to auscultation [] Abdomen: Bowel sounds normal, soft, mild generalized tenderness,, no masses, no pulsatile masses. [] Morbidly obese. Large midline suture. Appears to be healing well. Does have a small area Incision line which appears to be possibly abscess versus hematoma Skin: Warm, dry, no erythema, no rash. [] Back: No tenderness, no CVA tenderness. [] Extremities: No tenderness, no cyanosis, no clubbing, ROM intact, equal edema. [] Neurologic: Alert and oriented X 3, normal motor function, normal sensory function, no focal deficits noted. [] Psychologic: Affect anxious, judgement normal, mood normal. [] Current Patient Data Vital Signs Vital Signs Date Time Temp Pulse Resp B/P (MAP) Pulse Ox O2 Delivery O2 Flow Rate FiO2 10/31/18 21:41 18 98 Room Air 10/31/18 19:02 98.0 104 Lab Results Laboratory Tests Test 10/31/18 20:02 10/31/18 20:45 Urine Collection Type Unknown Urine Color Yellow Urine Clarity Hazy Urine pH 5.5 Urine Specific Huffman 1.025 Urine Protein 30 mg/dl (NEG-TRACE) Urine Glucose (UA) Neg mg/dL (NEG) Urine Ketones (Stick) Neg mg/dL (NEG) Urine Blood Neg (NEG) Urine Nitrite Neg (NEG) Urine Bilirubin Neg (NEG) Urine Urobilinogen Dipstick 0.2 mg/dL (0.2 mg/dL) Urine Leukocyte Esterase Neg (NEG) Urine RBC Rare /HPF (0-2) Urine WBC 1-4 /HPF (0-4) Urine Squamous Epithelial Cells Many /LPF Urine Bacteria Mod /HPF (0-FEW) Urine Mucus Mod /LPF Urine Opiates Screen Pos (NEG) Urine Methadone Screen Neg (NEG) Urine Barbiturates Neg (NEG) Urine Phencyclidine Screen Neg (NEG) Urine Amphetamine/Methamphetamine Neg (NEG) Urine Benzodiazepines Screen Neg (NEG) Urine Cocaine Screen Neg (NEG) Urine Cannabinoids Screen Neg (NEG) Urine Ethyl Alcohol Neg (NEG) POC Urine HCG, Qualitative hcg negative (Negative) Microbiology 10/31/18 Urine Culture - Final, Complete 10/31/18 Urine Culture Result 1 ([facility]) - Final, Complete EKG EKG [] Radiology/Procedures Radiology/Procedures [] Course & Med Decision Making Course & Med Decision Making Pertinent Labs and Imaging studies reviewed. (See chart for details)Patient continue antibiotics as directed. We will start additional Flagyl 500 mg 3 times a day. Patient must keep follow-up appointment with her surgery clinic at . Clear fluid diet and having abdomen pain.[] [] Final Impression Final Impression 1. Abdomen pain 2. Seroma 3. Morbidly obese Dragon Disclaimer Dragon Disclaimer This electronic medical record was generated, in whole or in part, using a voice recognition dictation system. Dragon Disclaimer This chart was dictated in whole or in part using Voice Recognition software in a busy, high-work load, and often noisy Emergency Department environment. It may contain unintended and wholly unrecognized errors or omissions. KAREN BACA MD Nov 03, 2018 19:02
== END 2018-10-31 21:31 | disposition home or self-care (01) ==
LOC: ER 18:39
DX: K91.872 Postprocedural seroma of a digestive system organ or structure following a digestive system procedure (principal); R10.84 Generalized abdominal pain; E66.01 Morbid (severe) obesity due to excess calories; F17.210 Nicotine dependence, cigarettes, uncomplicated; Z68.44 Body mass index [BMI] 60.0-69.9, adult; Z87.442 Personal history of urinary calculi; Z90.49 Acquired absence of other specified parts of digestive tract; Z98.890 Other specified postprocedural states; Z88.8 Allergy status to other drugs, medicaments and biological substances; Z88.6 Allergy status to analgesic agent; Z88.1 Allergy status to other antibiotic agents
CPT/HCPCS: 36415; 80307; 81001; 81025; 87086; 96372; 99284; J2270; Q0162

== ENCOUNTER 2018-12-03 10:54 | Emergency (ER) | payer OTHER ==
[~2018-12-03] VITALS: Ht 162.6 cm; Wt 179.0 kg
[~2018-12-03 10:54] MED LIST changes: +METR500T PO
[2018-12-03 10:55] VITALS: BP 120/84
[2018-12-03] MEDS ORDERED: ONDANSETRON ODT 4 MG TAB.RAPDIS PO ONE (11:45)
--- NOTE | 2018-12-03 12:06 | ED.ADGEN ---
Past History Past Medical History: Anxiety, Bipolar, Endometriosis, Kidney Stones, Other Past Surgical History: Cholecystectomy, Smoking: Cigarettes Alcohol Use: None Drug Use: Opiates Adult General Chief Complaint Chief Complaint Nausea vomiting, abdominal cramping HPI HPI Patient is a 28-year-old female presents with nausea vomiting abdominal cramping. Symptom onset was yesterday. Patient reports chills, denies fever or sweats. No flank pain. Reports chronic neck pain. No hematuria, history of kidney stones. Does report dysuria. Patient had a performed at [facility] 3 months ago and states she has an abscess below the surgical scar and has been treated with antibiotics and has been followed by for abscess. No other acute symptoms or complaints.[] Review of Systems Review of Systems Review symptoms as per history of present illness.] All other systems were reviewed and found to be within normal limits, except as documented in this note. Current Medications Current Medications Current Medications Medications (Trade) Dose Ordered Sig/Gina Start Time Stop Time Status Last Admin Dose Admin Ondansetron HCl (Zofran Odt) 8 mg 1X ONCE 12/03/18 11:45 12/03/18 11:42 DC Allergies Allergies Allergies Coded Allergies Type Severity Reaction Last Updated Verified chlorpromazine Allergy Intermediate 10/22/18 No dicyclomine Allergy Intermediate 10/22/18 No duloxetine Allergy Intermediate 10/22/18 No fentanyl Allergy Intermediate 10/22/18 No ibuprofen Allergy Intermediate Hives 10/22/18 Yes ketorolac Allergy Intermediate 10/22/18 No promethazine Allergy Intermediate 05/07/18 No tramadol Allergy Intermediate 05/21/18 No Physical Exam Physical Exam Constitutional: Well developed, well nourished, uncomfortable appearing, diaphoretic[] HENT: Normocephalic, atraumatic, bilateral external ears normal, oropharynx moist, no oral exudates, nose normal. [] Eyes: PERRLA, EOMI, conjunctiva normal, no discharge. [] Neck: Normal range of motion, no tenderness, supple, no stridor. [] Cardiovascular:Heart rate regular rhythm, no murmur [] Lungs & Thorax: Bilateral breath sounds clear to auscultation [] Abdomen: Bowel sounds normal, soft, obesity compromising exam.[] Skin: Warm, dry, no erythema, no rash. [] Back: No tenderness, no CVA tenderness. [] Extremities: No tenderness, no cyanosis, no clubbing, ROM intact, no edema. [] Neurologic: Alert and oriented X 3, normal motor function, normal sensory function, no focal deficits noted. [] Psychologic: Affect normal, judgement normal, mood normal. [] Current Patient Data Vital Signs Vital Signs Date Time Temp Pulse Resp B/P (MAP) Pulse Ox O2 Delivery O2 Flow Rate FiO2 12/03/18 10:55 98.5 89 16 98 Room Air EKG EKG [] Radiology/Procedures Radiology/Procedures [] Course & Med Decision Making Course & Med Decision Making Pertinent Labs and Imaging studies reviewed. (See chart for details) [Patient eloped shortly after evaluation. No diagnosis made. Given the patient's history of repeated narcotics seeking, it is possible that patient was going through narcotic withdrawal or may have a more serious underlying medical condit ion she has not been excluded and today's evaluation] Final Impression Final Impression [#1 abdominal pain #2 nausea and vomiting #3 drug-seeking behavior] Dragon Disclaimer Dragon Disclaimer This electronic medical record was generated, in whole or in part, using a voice recognition dictation system. YASMINE DESHPANDE DO Dec 03, 2018 12:06
== END 2018-12-03 11:38 | disposition left against medical advice (07) ==
LOC: ER 10:54
DX: R11.2 Nausea with vomiting, unspecified (principal); R10.9 Unspecified abdominal pain; F17.210 Nicotine dependence, cigarettes, uncomplicated; Z76.5 Malingerer [conscious simulation]; Z87.442 Personal history of urinary calculi; Z90.49 Acquired absence of other specified parts of digestive tract; Z98.890 Other specified postprocedural states; Z88.1 Allergy status to other antibiotic agents; Z88.6 Allergy status to analgesic agent; Z88.8 Allergy status to other drugs, medicaments and biological substances
CPT/HCPCS: 36415; 99281; 99283

== ENCOUNTER 2018-12-04 18:09 | Emergency (ER) | payer OTHER ==
[~2018-12-04] VITALS: Ht 162.6 cm; Wt 179.0 kg
--- NOTE | 2018-12-04 18:41 | PHYS DOC ---
Past History Past Medical History: Anxiety, Bipolar, Endometriosis, Kidney Stones, UTI, Other Past Surgical History: Cholecystectomy, Smoking: Cigarettes Alcohol Use: None Drug Use: Opiates Adult General Chief Complaint Chief Complaint: BLOOD IN URINE HPI HPI 28-year-old female returns emergency room with hematuria and right flank pain. The patient was seen in this ER yesterday, but left AMA before her workup was complete. She had to leave because her ride was leaving. Today, the patient tells me that she has had hematuria today. It is mixed with urine. She does not believe is a lot of blood. She also has right flank pain. She denies abdominal pain. She has nausea and has been vomiting today. He denies fever or chills. She has a history of kidney stones. She also has a recent history of abdominal absce ss after with wound dehiscence. Review of Systems Review of Systems Constitutional: Denies fever or chills [] Eyes: Denies change in visual acuity, redness, or eye pain [] HENT: Denies nasal congestion or sore throat [] Respiratory: Denies cough or shortness of breath [] Cardiovascular: No additional information not addressed in HPI [] GI: Denies abdominal pain, nausea, vomiting, bloody stools or diarrhea [] : hematuria [] Musculoskeletal: Right flank pain[] Integument: Denies rash or skin lesions [] Neurologic: Denies headache, focal weakness or sensory changes [] Endocrine: Denies polyuria or polydipsia [] All other systems were reviewed and found to be within normal limits, except as documented in this note. Allergies Allergies Allergies Coded Allergies Type Severity Reaction Last Updated Verified chlorpromazine Allergy Intermediate 10/22/18 No dicyclomine Allergy Intermediate 10/22/18 No duloxetine Allergy Intermediate 10/22/18 No fentanyl Allergy Intermediate 10/22/18 No ibuprofen Allergy Intermediate Hives 10/22/18 Yes ketorolac Allergy Intermediate 10/22/18 No promethazine Allergy Intermediate 05/07/18 No tramadol Allergy Intermediate 05/21/18 No Physical Exam Physical Exam Constitutional: Well developed, morbid obesity, well nourished, no acute distress, non-toxic appearance. [] HENT: Normocephalic, atraumatic, bilateral external ears normal, oropharynx moist, no oral exudates, nose normal. [] Eyes: PERRLA, EOMI, conjunctiva normal, no discharge. [] Neck: Normal range of motion, no tenderness, supple, no stridor. [] Cardiovascular:Heart rate regular rhythm, no murmur [] Lungs & Thorax: Bilateral breath sounds clear to auscultation [] Abdomen: Bowel sounds normal, soft, no tenderness, no masses, no pulsatile mass es. [] Skin: Warm, dry, no erythema, no rash. [] Back: No tenderness. Right CVA tenderness. [] Extremities: No tenderness, no cyanosis, no clubbing, ROM intact, no edema. [] Neurologic: Alert and oriented X 3, normal motor function, normal sensory function, no focal deficits noted. [] Psychologic: Affect normal, judgement normal, mood normal. [] Current Patient Data Vital Signs Vital Signs Date Time Temp Pulse Resp B/P (MAP) Pulse Ox O2 Delivery O2 Flow Rate FiO2 12/04/18 18:09 99.0 99 22 98 Room Air EKG EKG [] Radiology/Procedures Radiology/Procedures [] Course & Med Decision Making Course & Med Decision Making Pertinent Labs and Imaging studies reviewed. (See chart for details) I have given the patient a total of 6 mg of morphine and 8 mg of Zofran for her pain. Patient has refused CT, because she has had multiple CT scans and she is going to have a CT tomorrow for another reason. She has passed all of her stones in the past. She is hopeful that she will pass this stone. Since her urinalysis is negative for infection and only positive for blood, this is a reasonable accommodation. CT is not absolutely necessary. I will discharge her on a Zofran starter pack. The patient has a long history and the prescription monitoring database of 118 prescriptions from 93 providers and roughly the last 18 months. I'm not sending her home on pain medication. I made this clear to patient. She stated verbal understanding. She is scheduled for CT scan for abdominal abscess tomorrow. She will mention her possible diagnosis of kidney stone at that procedure so they may look for that as well. She is stable for discharge at this time. [] Dragon Disclaimer Dragon Disclaimer This electronic medical record was generated, in whole or in part, using a voice recognition dictation system. Departure Departure: Impression: Primary Impression: Blood in urine Disposition: HOME, SELF-CARE Condition: STABLE Referrals: PCP,NO (PCP) Patient Instructions: Hematuria, Adult Problem Qualifiers Primary Impression: Blood in urine Hematuria type: unspecified type Qualified Codes: R31.9 - Hematuria, unspecified YASMINE CONNOR DO Dec 04, 2018 18:41
[2018-12-04] MEDS ORDERED: ONDANSETRON PF 4 MG/2 ML VIAL. IV ONE (18:45)
[2018-12-04] MEDS ORDERED: IV NORMAL SALINE 1,000ML 1,000 ML IV ONE (18:45)
[2018-12-04] MEDS ORDERED: MORPHINE SULFATE 4 MG/ML DISP.SYRIN. IV ONE (18:45)
[2018-12-04 19:08] LABS: BACTERIA,URINE 0 /HPF (0-FEW); BILIRUBIN,URINE NEG (NEG); CLARITY,URINE CLOUDY; COLOR,URINE PINK; GLUCOSE,URINE NEG (NEG); NITRITE,URINE NEG (NEG); RBC,URINE 20-40 /HPF (0-2); SQUAMOUS EPITHELIAL CELL,UR FEW /LPF; UROBILINOGEN,URINE 0.2 mg/dL (0.2 mg/dL); WBC,URINE 0 /HPF (0-4)
[2018-12-04] MEDS ORDERED: MORPHINE SULFATE 2 MG/ML DISP.SYRIN. IV ONE (20:00)
[2018-12-04 20:08] VITALS: BP 167/74
[2018-12-04] MEDS ORDERED: ONDANSETRON 4MG ODT 4TABLET STARTPACK. PO ONE (20:30)
== END 2018-12-04 20:08 | disposition home or self-care (01) ==
LOC: ER 18:09
DX: R31.9 Hematuria, unspecified (principal); R10.9 Unspecified abdominal pain; R11.2 Nausea with vomiting, unspecified; F31.9 Bipolar disorder, unspecified; F17.210 Nicotine dependence, cigarettes, uncomplicated; Z87.442 Personal history of urinary calculi; Z87.440 Personal history of urinary (tract) infections; Z90.49 Acquired absence of other specified parts of digestive tract; Z98.890 Other specified postprocedural states; Z88.8 Allergy status to other drugs, medicaments and biological substances; Z88.6 Allergy status to analgesic agent
CPT/HCPCS: 81001; 81025; 96361; 96374; 96375; 96376; 99284; J2270; J2405; J7030

== ENCOUNTER 2018-12-28 10:05 | Emergency (ER) | payer OTHER ==
[~2018-12-28] VITALS: Ht 157.5 cm; Wt 184.6 kg
[2018-12-28] MEDS ORDERED: IV NORMAL SALINE 1,000ML 1,000 ML IV ONE (10:30)
--- NOTE | 2018-12-28 10:39 | PHYS DOC ---
Past History Past Medical History: Anxiety, Bipolar, Endometriosis, Kidney Stones, UTI, Other Past Surgical History: Cholecystectomy, Smoking: Cigarettes Alcohol Use: None Drug Use: Opiates Adult General Chief Complaint Chief Complaint: BACK PAIN OR INJURY HPI HPI Patient is a 28-year-old female presents with left flank and lower abdominal pain. She has a history of previous kidney stones. She also has a relatively recent history of a that subsequently got infected, and has been on several rounds of antibiotics for a this infection. A drainage procedure was scheduled but ultimately not performed because the abscess was doing better. Current symptoms of been going on for the past 2 days. She notes blood in her urine. No fever or dysuria. Some nausea without vomiting. Nothing makes the symptoms better or worse. Review of Systems Review of Systems Constitutional: Denies fever or chills [] Eyes: Denies change in visual acuity, redness, or eye pain [] HENT: Denies nasal congestion or sore throat [] Respiratory: Denies cough or shortness of breath [] Cardiovascular: No chest pain or palpitations[] GI: See history of present illness[] : See history of present illness[] Musculoskeletal: Denies back pain or joint pain [] Integument: Denies rash or skin lesions [] Neurologic: Denies headache, focal weakness or sensory changes [] Endocrine: Denies polyuria or polydipsia [] All other systems were reviewed and found to be within normal limits, except as documented in this note. Current Medications Current Medications Current Medications Medications (Trade) Dose Ordered Sig/Gina Start Time Stop Time Status Last Admin Dose Admin Sodium Chloride 1,000 ml @ 1,000 mls/hr 1X ONCE 12/28/18 10:30 12/28/18 11:29 Allergies Allergies Allergies Coded Allergies Type Severity Reaction Last Updated Verified chlorpromazine Allergy Intermediate 10/22/18 No dicyclomine Allergy Intermediate 10/22/18 No duloxetine Allergy Intermediate 10/22/18 No fentanyl Allergy Intermediate 10/22/18 No ibuprofen Allergy Intermediate Hives 10/22/18 Yes ketorolac Allergy Intermediate 10/22/18 No promethazine Allergy Intermediate 05/07/18 No tramadol Allergy Intermediate 05/21/18 No Physical Exam Physical Exam Constitutional: Well developed, well nourished, mild discomfort, non-toxic appearance. [] HENT: Normocephalic, atraumatic, bilateral external ears normal, oropharynx moist, no oral exudates, nose normal. [] Eyes: PERRLA, EOMI, conjunctiva normal, no discharge. [] Neck: Normal range of motion, no tenderness, supple, no stridor. [] Cardiovascular:Heart rate regular rhythm, no murmur [] Lungs & Thorax: Bilateral breath sounds clear to auscultation [] Abdomen: Bowel sounds normal, soft, no tenderness, no masses, no pulsatile masses. [] Skin: Warm, dry, no erythema, no rash. [] Back: No tenderness, no CVA tenderness. [] Extremities: No tenderness, no cyanosis, no clubbing, ROM intact, no edema. [] Neurologic: Alert and oriented X 3, normal motor function, normal sensory function, no focal deficits noted. [] Psychologic: Affect normal, judgement normal, mood normal. [] EKG EKG [] Radiology/Procedures Radiology/Procedures [] Course & Med Decision Making Course & Med Decision Making Pertinent Labs and Imaging studies reviewed. (See chart for details) eD course: Patient arrived, was placed in bed, and tolerated exam well. IV access was established, labs were drawn. IV fluids were started. Patient refused acetaminophen. She also refused CT scan. She ended up signing out AGAINST MEDICAL ADVICE. She was aware of the risks: To include or permanent disability. She was able to state the risks in her own words. Medical decision making: Patient with a history of perceived narcotic use/abuse given multiple prescribers from multiple facilities on [place] [facility] evaluation. Patient with allergy to traditional medicines for pain to include NSAIDs as well as fentanyl. In the course of trying to evaluate her for any acute pathologic necessitating stronger narcotic pain medicines, patient elected to leave AGAINST MEDICAL ADVICE.[] Dragon Disclaimer Dragon Disclaimer This electronic medical record was generated, in whole or in part, using a voice recognition dictation system. Departure Departure: Impression: Primary Impression: Low back pain Additional Impression: Left against medical advice Disposition: 07 AGAINST MEDICAL ADVICE Condition: IMPROVED Referrals: PCP,NO (PCP) Problem Qualifiers Primary Impression: Low back pain Chronicity: unspecified Back pain laterality: left Sciatica presence: without sciatica Qualified Codes: M54.5 - Low back pain WILLI YEE DO Dec 28, 2018 10:39
[2018-12-28] MEDS ORDERED: ONDANSETRON PF 4 MG/2 ML VIAL. IVP ONE (10:45)
[2018-12-28] MEDS ORDERED: ACETAMINOPHEN 325 MG TABLET PO ONE (10:45)
[2018-12-28 11:01] VITALS: BP 164/87
[2018-12-28 11:02] LABS: BASO # 0.1 x10^3/uL (0.0-0.2); BASO % 1 % (0-3); EOS # 0.2 x10^3/uL (0.0-0.7); EOS % 3 % (0-3); HEMATOCRIT 38.9 % (36.0-47.0); HEMOGLOBIN 12.6 g/dL (12.0-15.5); LYMPH # 2.4 x10^3/uL (1.0-4.8); LYMPH % 30 % (24-48); MEAN CORPUSCULAR HEMOGLOBIN 27 pg (25-35); MEAN CORPUSCULAR HGB CONC 32 g/dL (31-37); MEAN CORPUSCULAR VOLUME 83 fL (79-100); MONO # 0.4 x10^3/uL (0.0-1.1); MONO % 5 % (0-9); NEUT % 62 % (31-73); PLATELET COUNT 312 x10^3/uL (140-400); RED CELL DISTRIBUTION WIDTH 16.5 % (11.5-14.5); WHITE BLOOD COUNT 8.1 x10^3/uL (4.0-11.0)
[2018-12-28 11:14] LABS: ALBUMIN 3.4 g/dL (3.4-5.0); ALBUMIN/GLOBULIN RATIO 0.8 (1.0-1.7); CALCIUM 9.4 mg/dL (8.5-10.1); CREATININE 0.8 mg/dL (0.6-1.0); GFR 85.4; TOTAL BILIRUBIN 0.3 mg/dL (0.2-1.0); TOTAL PROTEIN 7.8 g/dL (6.4-8.2)
== END 2018-12-28 11:25 | disposition left against medical advice (07) ==
LOC: ER 10:05
DX: M54.5 Low back pain (principal); R10.32 Left lower quadrant pain; R31.9 Hematuria, unspecified; F17.210 Nicotine dependence, cigarettes, uncomplicated; Z87.442 Personal history of urinary calculi; Z87.440 Personal history of urinary (tract) infections; Z90.49 Acquired absence of other specified parts of digestive tract; Z98.890 Other specified postprocedural states; Z88.6 Allergy status to analgesic agent; Z88.8 Allergy status to other drugs, medicaments and biological substances; Z88.1 Allergy status to other antibiotic agents
CPT/HCPCS: 36415; 80053; 85025; 96374; 99284; J2405

== ENCOUNTER 2019-01-26 16:18 | Emergency (ER) | payer OTHER ==
[~2019-01-26] VITALS: Ht 162.6 cm; Wt 176.9 kg
[2019-01-26 16:30] VITALS: BP 164/87
[2019-01-26] MEDS ORDERED: IV NORMAL SALINE 1,000ML 1,000 ML IV SCH (16:31)
--- NOTE | 2019-01-26 16:39 | PHYS DOC ---
Past History Past Medical History: Endometriosis, Kidney Stones, Other Additional Past Medical Histor: morbid obesity Past Surgical History: Smoking: Cigarettes Alcohol Use: None Drug Use: None Adult General Chief Complaint Chief Complaint: BACK PAIN OR INJURY HPI HPI Patient is a 29-year-old female presents with left flank pain and hematuria. This started this morning. Patient reports previous history of kidney stones. She also reports nausea and vomiting. No blood in the emesis. No diarrhea. No blood in her stool. No recent travel. He makes the symptoms better or worse. Pain radiates around to her left flank. She reports the pain is severe.[] Review of Systems Review of Systems Constitutional: Denies fever or chills [] Eyes: Denies change in visual acuity, redness, or eye pain [] HENT: Denies nasal congestion or sore throat [] Respiratory: Denies cough or shortness of breath [] Cardiovascular: No chest pain or palpitations[] GI: See history of present illness[] : Denies dysuria, see history of present illness[] Musculoskeletal: Denies back pain or joint pain [] Integument: Denies rash or skin lesions [] Neurologic: Denies headache, focal weakness or sensory changes [] Endocrine: Denies polyuria or polydipsia [] All other systems were reviewed and found to be within normal limits, except as documented in this note. Allergies Allergies Allergies Coded Allergies Type Severity Reaction Last Updated Verified chlorpromazine Allergy Intermediate 10/22/18 No dicyclomine Allergy Intermediate 10/22/18 No duloxetine Allergy Intermediate 10/22/18 No fentanyl Allergy Intermediate 10/22/18 No ibuprofen Allergy Intermediate Hives 10/22/18 Yes ketorolac Allergy Intermediate 10/22/18 No promethazine Allergy Intermediate 05/07/18 No tramadol Allergy Intermediate 05/21/18 No Physical Exam Physical Exam Constitutional: Well developed, well nourished, no acute distress, non-toxic appearance. [] HENT: Normocephalic, atraumatic, bilateral external ears normal, oropharynx moist, no oral exudates, nose normal. [] Eyes: PERRLA, EOMI, conjunctiva normal, no discharge. [] Neck: Normal range of motion, no tenderness, supple, no stridor. [] Cardiovascular:Heart rate regular rhythm, no murmur [] Lungs & Thorax: Bilateral breath sounds clear to auscultation [] Abdomen: Bowel sounds normal, soft, no tenderness, no masses, no pulsatile masses. [] Skin: Warm, dry, no erythema, no rash. [] Back: No tenderness, no CVA tenderness. [] Extremities: No tenderness, no cyanosis, no clubbing, ROM intact, no edema. [] Neurologic: Alert and oriented X 3, normal motor function, normal sensory function, no focal deficits noted. [] Psychologic: Affect normal, judgement normal, mood normal. [] EKG EKG [] Radiology/Procedures Radiology/Procedures [] Course & Med Decision Making Course & Med Decision Making Pertinent Labs and Imaging studies reviewed. (See chart for details) ED course: Patient arrived, was placed in bed, and tolerated exam well. Review was made of the patient's chart since her name looked familiar, and found that I had seen her earlier in the month with similar complaints. [place] was reviewed and note that she has seen several other physicians this month and has received several doses of narcotics. Patient demanding of antiemetics and pain medicine. Patient while antiemetics were being obtained decided that she just wanted to be discharged. Patient is being discharged AGAINST MEDICAL ADVICE. She was warned of the risks to include or permanent disability. She is able to state the risks in her own words. Medical decision making: Concerned about possible kidney stone versus drug-see jamie behavior. Patient has not had laboratory testing nor imaging performed.[] Dragon Disclaimer Dragon Disclaimer This electronic medical record was generated, in whole or in part, using a voice recognition dictation system. Departure Departure: Impression: Primary Impression: Low back pain Additional Impression: Left against medical advice Disposition: 07 AGAINST MEDICAL ADVICE Condition: IMPROVED Referrals: PCP,NO (PCP) Patient Instructions: Diet for Kidney Stones, Discharge Against Medical Advice, Kidney Stones Additional Instructions: Drink plenty of fluids. Follow-up with your regular doctor in 1-2 days. Return to the ER if worsening pain, fever of more than 101, or any other concerns. Scripts Ondansetron Hcl (ZOFRAN) 4 Mg Tablet 1 TAB PO Q6HRS for nausea or vomiting, #20 TAB Prov: WILLI YEE DO 01/26/19 Acetaminophen (TYLENOL) 325 Mg Tablet 1-2 TAB PO QID for PAIN, #60 TAB 0 Refills Prov: WILLI YEE DO 01/26/19 Problem Qualifiers Primary Impression: Low back pain Chronicity: unspecified Back pain laterality: left Sciatica presence: without sciatica Qualified Codes: M54.5 - Low back pain WILLI YEE DO Jan 26, 2019 16:39
[2019-01-26] MEDS ORDERED: PROCHLORPERAZINE 10 MG/2 ML VIAL. IV ONE (16:45)
[2019-01-26] MEDS ORDERED: ACETAMINOPHEN 500 MG TABLET PO ONE (16:45)
[2019-01-26] MEDS ORDERED: diphenhydrAMINE 50 MG/ML VIAL IVP ONE (16:45)
[2019-01-26] MEDS ORDERED: ACET325T9 PO (17:15)
[2019-01-26] MEDS ORDERED: ONDA4TAB7 PO (17:15)
== END 2019-01-26 17:19 | disposition left against medical advice (07) ==
LOC: ER 16:18
DX: M54.5 Low back pain (principal); R31.9 Hematuria, unspecified; R11.2 Nausea with vomiting, unspecified; F17.210 Nicotine dependence, cigarettes, uncomplicated; E66.01 Morbid (severe) obesity due to excess calories; Z87.442 Personal history of urinary calculi; Z68.44 Body mass index [BMI] 60.0-69.9, adult; Z98.890 Other specified postprocedural states; Z88.8 Allergy status to other drugs, medicaments and biological substances; Z88.6 Allergy status to analgesic agent
CPT/HCPCS: 99283

== ENCOUNTER 2019-02-18 11:09 | Emergency (ER) | payer OTHER ==
[~2019-02-18] VITALS: Ht 162.6 cm; Wt 179.0 kg
[~2019-02-18 11:09] MED LIST changes: +ACET325T9 PO
[2019-02-18 11:20] VITALS: BP 156/100
--- NOTE | 2019-02-18 14:45 | PHYS DOC ---
Past History Past Medical History: Endometriosis, Kidney Stones, Other Additional Past Medical Histor: morbid obesity Past Surgical History: Smoking: Cigarettes Alcohol Use: None Drug Use: None Adult General Chief Complaint Chief Complaint: MEDICATION REFILL HPI HPI Patient is a 29-year-old female well-known to this department presenting with abdominal pain and vomiting she has had pain since August if not longer she is working and having subcutaneous seroma drained from her abdomen apparently she's had this ever since September when she had a She said that she is due for another drainage procedure at the end of next week she was down in [place] visiting her parents she was having a lot of pain so she went to a doctor there and received oxycodone normally she takes hydroc odone the oxycodone makes her sick she's not been able to keep it down despite using Zofran at home she was wondering if we could give her shot of pain medication to keep this pain under control actually why she came to the emergency room she tells me Review of Systems Review of Systems Constitutional: Denies fever or chills [] Eyes: Denies change in visual acuity, redness, or eye pain [] HENT: Denies nasal congestion or sore throat [] Musculoskeletal: Denies back pain or joint pain [] Integument: Denies rash or skin lesions [] Neurologic: Denies headache, focal weakness or sensory changes [] Endocrine: Denies polyuria or polydipsia [] All other systems were reviewed and found to be within normal limits, except as documented in this note. Allergies Allergies Allergies Coded Allergies Type Severity Reaction Last Updated Verified chlorpromazine Allergy Intermediate 10/22/18 No dicyclomine Allergy Intermediate 10/22/18 No duloxetine Allergy Intermediate 10/22/18 No fentanyl Allergy Intermediate 10/22/18 No ibuprofen Allergy Intermediate Hives 10/22/18 Yes ketorolac Allergy Intermediate 10/22/18 No promethazine Allergy Intermediate 05/07/18 No tramadol Allergy Intermediate 05/21/18 No Physical Exam Physical Exam Constitutional: Well developed, over nourished, no acute distress, non-toxic appearance. [] HENT: Normocephalic, atraumatic, bilateral external ears normal, oropharynx moist, no oral exudates, nose normal. [] Eyes: PERRLA, EOMI, conjunctiva normal, no discharge. [] Neck: Normal range of motion, no tenderness, supple, no stridor. [] Pulmonary: Normal respiratory effort no increased work of breathing no obvious chest wall trauma Abdomen: Bowel sounds normal, soft, mild tenderness just lateral to the surgical incision in the mid abdomen no peritoneal signs Skin: Warm, dry, no erythema, no rash. [] Back: No tenderness, no CVA tenderness. [] Extremities: No tenderness, no cyanosis, no clubbing, ROM intact, no edema. [] Neurologic: Alert and oriented X 3, normal motor function, normal sensory function, no focal deficits noted. [] Psychologic: Affect normal, judgement normal, mood normal. [] Current Patient Data Vital Signs Vital Signs Date Time Temp Pulse Resp B/P (MAP) Pulse Ox O2 Delivery O2 Flow Rate FiO2 02/18/19 11:20 97.9 112 20 100 Room Air Lab Results perature (Fahrenheit): * 97.9 degrees F (97.6-99.5) Patient Temperature * 97.9 degrees F (97.5-99.5) Temperature Source * Oral Blood Pressure Systolic * 156 mm Hg (100-140) H Blood Pressure Diastolic * 100 mm Hg (60-100) Blood Pressure Mean * 118 mm Hg Pulse Rate * 112 beats per minute (60-90) H Respiratory Rate * 20 breaths per minute (12-24) Oxygen Delivery Method * Room Air Bedside Pulse Oximetry * 100 % EKG EKG [] Radiology/Procedures Radiology/Procedures [] Course & Med Decision Making Course & Med Decision Making Pertinent Labs and Imaging studies reviewed. (See chart for details) []29-year-old female with chronic pain narcotic dependence multiple prior prescriptions based on my K tracks review including 65 tablets of either hydrocodone or oxycodone earlier this month alone presenting with exacerbation of her chronic abdominal pain. I recommended Zofran so that she could go home and continue her oral pain medication already prescribed 2 days ago however she eloped from the department prior to us going back in with the nausea medication or any further testing. Dragon Disclaimer Dragon Disclaimer This electronic medical record was generated, in whole or in part, using a voice recognition dictation system. Departure Departure: Impression: Primary Impression: Abdominal pain Disposition: AGAINST MEDICAL ADVICE Condition: STABLE Referrals: PCP,MANDI (PCP) AVA RAM MD Feb 18, 2019 14:45
== END 2019-02-18 11:36 | disposition left against medical advice (07) ==
LOC: ER 11:09
DX: G89.29 Other chronic pain (principal); R10.9 Unspecified abdominal pain; R11.10 Vomiting, unspecified; E66.01 Morbid (severe) obesity due to excess calories; F17.210 Nicotine dependence, cigarettes, uncomplicated; Z87.442 Personal history of urinary calculi; Z98.890 Other specified postprocedural states; Z68.44 Body mass index [BMI] 60.0-69.9, adult; Z88.8 Allergy status to other drugs, medicaments and biological substances; Z88.6 Allergy status to analgesic agent; Z88.1 Allergy status to other antibiotic agents
CPT/HCPCS: 99281

== ENCOUNTER 2019-04-03 21:47 | Emergency (ER) | payer OTHER ==
[~2019-04-03] VITALS: Ht 162.6 cm; Wt 186.0 kg
[2019-04-03 21:50] VITALS: BP 157/94
[2019-04-03] MEDS ORDERED: HYDROcodone/APAP 5/325MG 1 TAB TABLET PO ONE (22:30)
[2019-04-03] MEDS ORDERED: ONDANSETRON ODT 4 MG TAB.RAPDIS PO ONE (22:30)
[2019-04-03] MEDS ORDERED: diphenhydrAMINE 50 MG/ML VIAL IM ONE (22:30)
--- NOTE | 2019-04-03 22:30 | PHYS DOC ---
Past History Past Medical History: Endometriosis, Kidney Stones, Other Additional Past Medical Histor: morbid obesity, abcesses needing CT drainage Past Surgical History: Cholecystectomy, Smoking: Cigarettes Alcohol Use: None Drug Use: None Adult General Chief Complaint Chief Complaint: ABSCESS HPI HPI Patient is a 29-year-old female with abdominal pain. She has a long history of an post surgical seroma just had an IR drainage about 2 weeks ago apparently she had no ultrasound that showed some reaccumulation. She is due to see a general surgeon next week. She is having nausea and vomiting secondary to the pain she had to take care of her kids for a couple of days which she was unable to keep up with her [id number] pain medication. She is just requesting something for pain control here in the emergency room. Denies fever she says she really saw a doctor already on Wednesday showed he had blood work she had a normal white blood cell count she really doesn't want any of that today she just wants something for the pain. She has follow-up with a general surgeon to evaluate the reaccumulated seroma later this week in a couple of days she thinks. Review of Systems Review of Systems Constitutional: Denies fever or chills [] Eyes: Denies change in visual acuity, redness, or eye pain [] HENT: Denies nasal congestion or sore throat [] Respiratory: Denies cough or shortness of breath [] Musculoskeletal: Denies back pain or joint pain [] Integument: Denies rash or skin lesions [] Neurologic: Denies headache, focal weakness or sensory changes [] Endocrine: Denies polyuria or polydipsia [] All other systems were reviewed and found to be within normal limits, except as documented in this note. Current Medications Current Medications Current Medications Medications (Trade) Dose Ordered Sig/Gina Start Time Stop Time Status Last Admin Dose Admin Acetaminophen/ Hydrocodone Bitart (Lortab 5/325) 2 tab 1X ONCE 04/03/19 22:30 04/03/19 22:31 UNV Diphenhydramine HCl (Benadryl) 50 mg 1X ONCE 04/03/19 22:30 04/03/19 22:31 Ondansetron HCl (Zofran Odt) 4 mg 1X ONCE 04/03/19 22:30 04/03/19 22:31 Allergies Allergies Allergies Coded Allergies Type Severity Reaction Last Updated Verified chlorpromazine Allergy Intermediate 10/22/18 No dicyclomine Allergy Intermediate 10/22/18 No duloxetine Allergy Intermediate 10/22/18 No fentanyl Allergy Intermediate 10/22/18 No ibuprofen Allergy Intermediate Hives 10/22/18 Yes ketorolac Allergy Intermediate 10/22/18 No promethazine Allergy Intermediate 05/07/18 No tramadol Allergy Intermediate 05/21/18 No Physical Exam Physical Exam Constitutional: Well developed, well nourished, no acute distress, non-toxic appearance. [] HENT: Normocephalic, atraumatic, bilateral external ears normal, oropharynx moist, no oral exudates, nose normal. [] Eyes: PERRLA, EOMI, conjunctiva normal, no discharge. [] Pulmonary: Normal respiratory effort no increased work of breathing no obvious chest wall trauma Abdomen: Bowel sounds normal, soft, there is very focal tenderness just lateral to the surgical incision no obvious fluctuance or erythema was identified no peritoneal signs patient is very obese limits evaluation somewhat Skin: Warm, dry, no erythema, no rash. [] Back: No tenderness, no CVA tenderness. [] Extremities: No tenderness, no cyanosis, no clubbing, ROM intact, no edema. [] Neurologic: Alert and oriented X 3, normal motor function, normal sensory function, no focal deficits noted. [] Psychologic: Affect normal, judgement normal, mood normal. [] Current Patient Data Vital Signs Vital Signs Date Time Temp Pulse Resp B/P (MAP) Pulse Ox O2 Delivery O2 Flow Rate FiO2 04/03/19 21:50 98.2 102 18 97 Room Air Lab Results Temperature (Fahrenheit): * 98.2 degrees F (97.6-99.5) Patient Temperature * 98.2 degrees F (97.5-99.5) Temperature Source * Oral Blood Pressure Systolic * 157 mm Hg (100-140) H Blood Pressure Diastolic * 94 mm Hg (60-100) Blood Pressure Mean * 115 mm Hg Blood Pressure Location * Right Arm Blood Pressure Source * Automatic Cuff Pulse Rate * 102 beats per minute (60-90) H Pulse Assessment Method * Monitor Respiratory Rate * 18 breaths per minute (12-24) Oxygen Delivery Method * Room Air EKG EKG [] Radiology/Procedures Radiology/Procedures [] Course & Med Decision Making Course & Med Decision Making Pertinent Labs and Imaging studies reviewed. (See chart for details) []29-year-old female presenting with basically acute on chronic abdominal pain. Just requested pain control we went back and forth she does say she takes Advil at home and then when I confronted her about her allergies are she says that she takes Benadryl so she doesn't break out in hives. I said since she's been tolerating Advil at home we could may be used and Toradol she really didn't want that we agreed on a shot of IM Benadryl as well as oral medication for her sy mptoms. Recommended follow-up with her surgeon as scheduled. I don't think that she needs any acute workup today otherwise. This is a subacute problem has been going on for several months at least. Dragon Disclaimer Dragon Disclaimer This electronic medical record was generated, in whole or in part, using a voice recognition dictation system. Departure Departure: Impression: Primary Impression: Abdominal pain Disposition: HOME, SELF-CARE Condition: STABLE Referrals: PCP,NO (PCP) Patient Instructions: Abdominal Pain (Nonspecific) AVA RAM MD Apr 03, 2019 22:30
== END 2019-04-03 22:42 | disposition home or self-care (01) ==
LOC: ER 21:47
DX: R10.9 Unspecified abdominal pain (principal); G89.29 Other chronic pain; R11.2 Nausea with vomiting, unspecified; E66.01 Morbid (severe) obesity due to excess calories; Z68.45 Body mass index [BMI] 70 or greater, adult; F17.210 Nicotine dependence, cigarettes, uncomplicated; Z87.442 Personal history of urinary calculi; Z90.49 Acquired absence of other specified parts of digestive tract; Z98.890 Other specified postprocedural states; Z88.8 Allergy status to other drugs, medicaments and biological substances; Z88.6 Allergy status to analgesic agent
CPT/HCPCS: 96372; 99283; J1200; Q0162

== ENCOUNTER 2019-04-27 10:58 | Emergency (ER) | payer OTHER ==
[~2019-04-27] VITALS: Ht 162.6 cm; Wt 179.0 kg
[2019-04-27 11:15] VITALS: BP 160/101
--- NOTE | 2019-04-27 11:42 | PHYS DOC ---
Past History Past Medical History: Endometriosis, Kidney Stones, Other Additional Past Medical Histor: morbid obesity, abcesses needing CT drainage Past Surgical History: Cholecystectomy, Smoking: Cigarettes Alcohol Use: None Drug Use: None Adult General Chief Complaint Chief Complaint: ABDOMINAL PAIN HPI HPI Patient is a 29-year-old female, with chronic abdominal pain presents to the emergency department for evaluation. She states that she picked up her son today, and exacerbated pain infraumbilical area. She denies numbness or weakness, diarrhea, but states she has been vomiting and unable to hold down her pain medication. She has been since emergency department, as well as several others throughout the city, numerous times Recently. She states that she had a CT scan of her abdomen and pelvis done about 2 weeks ago at . She states she was told she had a hernia. I reviewed her [facility] history, and she has a history of 87 opiate prescriptions over the past 2 years, from 70 (!) Different providers. I discuss possible workup for the patient's abdominal pain, including blood work, and a CT scan, but she states she has had a proximally 10 CT scans over the past 12 months of her abdomen, including 2 at this facility over the summer. I discussed blood work to evaluate for the possibility of an incarcerated hernia, but the patient declines at this time. She states her main concern is that she is having nausea and unable to hold down pain medication. She did receive a prescription for hydrocodone-containing cough syrup 3 days ago, and has had 2 other prescriptions for hydrocodone in a few days preceding that according to [facility]. I did discuss with the patient my suspicion that she has an opiate addiction, and recommended she seek treatment for such. She was receptive. She declined fur ther evaluation, with lab or imaging at this time. She expressed understanding of the limitation that this would place on her ER evaluation. Patient's notes from recent ER visits have been reviewed. Review of Systems Review of Systems Constitutional: Denies fever or chills [] Eyes: Denies change in visual acuity, redness, or eye pain [] HENT: Denies nasal congestion or sore throat [] Respiratory: Denies cough or shortness of breath [] Cardiovascular: The patient denies any shortness of breath, chest pain, palpitations, or orthopnea [] GI: Denies vomiting, bloody stools or diarrhea [] : Denies dysuria or hematuria [] Musculoskeletal: Denies back pain or joint pain [] Integument: Denies rash or skin lesions [] Neurologic: Denies headache, focal weakness or sensory changes [] Endocrine: Denies polyuria or polydipsia [] All other systems were reviewed and found to be within normal limits, except as documented in this note. Allergies Allergies Allergies Coded Allergies Type Severity Reaction Last Updated Verified chlorpromazine Allergy Intermediate 10/22/18 No dicyclomine Allergy Intermediate 10/22/18 No duloxetine Allergy Intermediate 10/22/18 No fentanyl Allergy Intermediate 10/22/18 No ibuprofen Allergy Intermediate Hives 10/22/18 Yes ketorolac Allergy Intermediate 10/22/18 No promethazine Allergy Intermediate 05/07/18 No tramadol Allergy Intermediate 05/21/18 No Physical Exam Physical Exam PHYSICAL EXAM: CONSTITUTIONAL: Well developed, well nourished HEAD: normocephalic, atraumatic EENT: PERRL, EOMI. Conjunctivae normal color, sclerae non-icteric; moist mucous membranes. NECK: Supple, non-tender; no meningismus. LUNGS: Lungs CTA, breathing even and unlabored. Normal air movement. HEART: Regular rate and rhythm, no murmur CHEST: No deformity; non-tender ABDOMEN: The abdomen is soft, there is mild diffuse tenderness to the entire abdomen, without focal tenderness, rebound, or guarding, no masses or bruits. There is a well-healed abdominal scar, with a scab, in the central abdomen, without definite underlying palpable mass. Exam is limited by the patient's body habitus. EXTREM: Normal ROM; no deformity, no calf tenderness. Normal pulses palpable in all extremities. There is no pedal edema. SKIN: No rash; no diaphoresis NEURO: Alert; normal speech and cognition; CN's grossly intact; strength grossly intact without focal deficit. BACK: No CVA TTP. Current Patient Data Vital Signs Vital Signs Date Time Temp Pulse Resp B/P (MAP) Pulse Ox O2 Delivery O2 Flow Rate FiO2 04/27/19 11:15 98.4 100 20 160/101 (120) 100 Room Air EKG EKG [] Radiology/Procedures Radiology/Procedures [] Course & Med Decision Making Course & Med Decision Making Pertinent Labs and Imaging studies reviewed. (See chart for details) [] Dragon Disclaimer Dragon Disclaimer This electronic medical record was generated, in whole or in part, using a voice recognition dictation system. Departure Departure: Impression: Primary Impression: Chronic abdominal pain Additional Impression: Opiate addiction Disposition: 01 HOME, SELF-CARE Condition: STABLE Patient Instructions: Abdominal Pain, Opiate Dependence Additional Instructions: Follow-up with your general surgeon at . Return to the emergency department for any new or worsening symptoms. Problem Qualifiers JESSICA GARCÍA MD Apr 27, 2019 11:42
[2019-04-27] MEDS ORDERED: ONDANSETRON ODT 4 MG TAB.RAPDIS PO ONE (12:00)
== END 2019-04-27 11:43 | disposition home or self-care (01) ==
LOC: ER 10:58
DX: G89.29 Other chronic pain (principal); R10.9 Unspecified abdominal pain; F11.20 Opioid dependence, uncomplicated; F17.210 Nicotine dependence, cigarettes, uncomplicated; Z87.442 Personal history of urinary calculi; Z90.49 Acquired absence of other specified parts of digestive tract; Z88.1 Allergy status to other antibiotic agents; Z88.6 Allergy status to analgesic agent; Z88.8 Allergy status to other drugs, medicaments and biological substances
CPT/HCPCS: 99284

== ENCOUNTER 2019-05-13 21:04 | Emergency (ER) | payer OTHER ==
[~2019-05-13] VITALS: Ht 162.6 cm; Wt 195.0 kg
[~2019-05-13 21:04] MED LIST changes: -MAGN2400 PO; +MAGN24003 PO
[2019-05-13 21:05] VITALS: BP 156/90
[2019-05-13] MEDS ORDERED: CEPH-263 PO (21:33)
[2019-05-13] MEDS ORDERED: NYST15CR2 TP (21:33)
[2019-05-13] MEDS ORDERED: ACET-704 PO (21:34)
--- NOTE | 2019-05-13 21:34 | PHYS DOC ---
Past History Past Medical History: Endometriosis, Kidney Stones, Other Additional Past Medical Histor: morbid obesity, abcesses needing CT drainage Past Surgical History: Cholecystectomy, Smoking: Cigarettes Alcohol Use: None Drug Use: None Adult General Chief Complaint Chief Complaint: SKIN RASH/ABSCESS [facility] HPI Patient is a 29 year female presents complaining of cellulitis of her lower abdomen with associated abdominal pain. She states symptoms x 2-3 days. States she was seen at prior to arrival and instructed to come to ER for further evaluation of her abdominal cellulitis. Area of concern is lower abdomen pannus--- crease/fold. Redness in area is minimal. Exam not consistent with an underlying abscess, Patient does have abdominal surgical wound of anterior abdomen that is healing without complication. Review of Systems Review of Systems Constitutional: Denies fever or chills [] Eyes: Denies change in visual acuity, redness, or eye pain [] HENT: Denies nasal congestion or sore throat [] Respiratory: Denies cough or shortness of breath [] Cardiovascular: No additional information not addressed in HPI [] GI: Denies , nausea, vomiting, bloody stools or diarrhea [positive abdominal pain] : Denies dysuria or hematuria [] Musculoskeletal: Denies back pain or joint pain [] Integument: Denies rash or skin lesions [positive cellulitis] Neurologic: Denies headache, focal weakness or sensory changes [] Endocrine: Denies polyuria or polydipsia [] All other systems were reviewed and found to be within normal limits, except as documented in this note. Allergies Allergies Allergies Coded Allergies Type Severity Reaction Last Updated Verified chlorpromazine Allergy Intermediate 10/22/18 No dicyclomine Allergy Intermediate 10/22/18 No duloxetine Allergy Intermediate 10/22/18 No fentanyl Allergy Intermediate 10/22/18 No ibuprofen Allergy Intermediate Hives 10/22/18 Yes ketorolac Allergy Intermediate 10/22/18 No promethazine Allergy Intermediate 05/07/18 No tramadol Allergy Intermediate 05/21/18 No Physical Exam Physical Exam Constitutional: Well developed, well nourished, no acute distress, non-toxic appearance. [] HENT: Normocephalic, atraumatic, bilateral external ears normal, oropharynx moist, no oral exudates, nose normal. [] Eyes: PERRLA, EOMI, conjunctiva normal, no discharge. [] Neck: Normal range of motion, no tenderness, supple, no stridor. [] Cardiovascular:Heart rate regular rhythm, no murmur [] Lungs & Thorax: Bilateral breath sounds clear to auscultation [] Abdomen: Bowel sounds normal, soft, no tenderness, no masses, no pulsatile masses. [] Skin: Warm, dry, no erythema, no rash. [] Back: No tenderness, no CVA tenderness. [] Extremities: No tenderness, no cyanosis, no clubbing, ROM intact, no edema. [] Neurologic: Alert and oriented X 3, normal motor function, normal sensory function, no focal deficits noted. [] Psychologic: Affect normal, judgement normal, mood normal. [] EKG EKG [] Radiology/Procedures Radiology/Procedures [] Course & Med Decision Making Course & Med Decision Making Pertinent Labs and Imaging studies reviewed. (See chart for details) []DDx cellulitis vs yeast infection. Will place patient on keflex and nystatin topical cream Will rx t#3 10 tablets. Dragon Disclaimer Dragon Disclaimer This electronic medical record was generated, in whole or in part, using a voice recognition dictation system. Departure Departure: Impression: Primary Impression: Abdominal wall cellulitis Additional Impression: Rachel infection Disposition: 01 HOME, SELF-CARE Condition: STABLE Referrals: PCP,NO (PCP) Patient Instructions: Cellulitis, Yeast Infection of the Skin, [id number] Scripts Acetaminophen With Codeine (TYLENOL WITH CODEINE #3 TABLET) 1 Each Tablet 1 TAB PO PRN Q4-6HRS PRN for pain MDD 6 Tablet(s) for 5 Days, #14 TAB 0 Refills Prov: MARY JACOB DO 05/13/19 Nystatin/Triamcin (NYSTATIN-TRIAMCINOLONE CREAM) 15 Gm Cream..g. 1 EMMANUELLE TP BID, #15 GM 1 Refill Prov: MARY JACOB DO 05/13/19 Cephalexin (KEFLEX) 250 Mg Capsule 1 CAP PO QID for 10 Days, #40 CAP 0 Refills Prov: MARY JACOB DO 05/13/19 Problem Qualifiers MARY JACOB DO May 13, 2019 21:34
[2019-05-13] MEDS ORDERED: ACETAMINOPHEN/CODEINE 300/30MG TABLET ONE (22:03)
[2019-05-13] MEDS ORDERED: CEPHALEXIN 250 MG CAPSULE ONE (22:03)
[2019-05-13] MEDS ORDERED: ACETAMINOPHEN/CODEINE 300/30MG TABLET PO ONE (22:30)
[2019-05-13] MEDS ORDERED: CEPHALEXIN 250 MG CAPSULE PO ONE (22:30)
== END 2019-05-13 22:05 | disposition home or self-care (01) ==
LOC: ER 21:04
DX: L03.311 Cellulitis of abdominal wall (principal); B37.9 Candidiasis, unspecified; F17.210 Nicotine dependence, cigarettes, uncomplicated; Z90.49 Acquired absence of other specified parts of digestive tract; Z88.1 Allergy status to other antibiotic agents; Z88.8 Allergy status to other drugs, medicaments and biological substances
CPT/HCPCS: 99283

== ENCOUNTER 2019-08-06 18:59 | Emergency (ER) | payer OTHER ==
[~2019-08-06] VITALS: Ht 162.6 cm; Wt 200.0 kg
[~2019-08-06 18:59] MED LIST changes: +CEPH-263 PO; +NYST15CR2 TP
--- NOTE | 2019-08-06 19:03 | PHYS DOC ---
Past History Past Medical History: Other Additional Past Medical Histor: umbilical hernia Past Surgical History: Smoking: Cigarettes Alcohol Use: None Drug Use: None General Adult HPI: HPI: ".. I got this rash under my belly flap... it become cellulitic again... It got treated once.. and got better.. but now it is back.." Patient is a 29 year old female who presents with above hx and complaints of abdomen pain. Patient has a pannus rash that appears to be somewhat yeast in nature because of erythema and borders. Patient does have follow-up with surgeon in 10 days. Patient recently had . Patient states the rest is very irritating. Patient requesting pain meds for the discomfort. No recent travel outside the [place] area. No specific ill contacts. Patient does smoke. Patient states her tetanus is up-to-date. Review of Systems: Review of Systems: Constitutional: Denies fever or chills Eyes: Denies change in visual acuity HENT: Denies nasal congestion or sore throat Respiratory: Denies cough or shortness of breath Cardiovascular: Denies chest pain or edema GI: Denies abdominal pain, nausea, vomiting, bloody stools or diarrhea : Denies dysuria Musculoskeletal: Denies back pain or joint pain Integument: Cellulitis in pannus area. Neurologic: Denies headache, focal weakness or sensory changes Endocrine: Denies polyuria or polydipsia Lymphatic: Denies swollen glands Psychiatric: Denies depression or anxiety Heart Score: Risk Factors: Risk Factors: DM, Current or recent (<one month) smoker, HTN, HLP, family history of CAD, obesity. Risk Scores: Score 0 - 3: 2.5% MACE over next 6 weeks - Discharge Home Score 4 - 6: 20.3% MACE over next 6 weeks - Admit for Clinical Observation Score 7 - 10: 72.7% MACE over next 6 weeks - Early Invasive Strategies Family History: Family History: Noncontributory Current Medications: Current Meds: See nursing for home meds Allergies: Allergies: Allergies Coded Allergies Type Severity Reaction Last Updated Verified chlorpromazine Allergy Intermediate 10/22/18 No dicyclomine Allergy Intermediate 10/22/18 No duloxetine Allergy Intermediate 10/22/18 No fentanyl Allergy Intermediate 10/22/18 No ibuprofen Allergy Intermediate Hives 10/22/18 Yes ketorolac Allergy Intermediate 10/22/18 No promethazine Allergy Intermediate 05/07/18 No tramadol Allergy Intermediate 05/21/18 No Physical Exam: PE: Constitutional: Moderate acute distress, non-toxic appearance. [] HENT: Normocephalic, atraumatic, bilateral external ears normal, oropharynx moist, no oral exudates, nose normal. [] Eyes: PERRLA, EOMI, conjunctiva normal, no discharge. [] Neck: Normal range of motion, no tenderness, supple, no stridor. [] Cardiovascular:Heart rate regular rhythm, no murmur [] Lungs & Thorax: Bilateral breath sounds clear to auscultation [] Abdomen: Bowel sounds normal, soft, no tenderness, no masses, no pulsatile masses. Healing scar. Does have an umbilicus hernia. Patient has large pannus with rash between pannus layers. Skin: Warm, dry, no erythema, pannus rash. [] Back: No tenderness, no CVA tenderness. [] Extremities: No tenderness, no cyanosis, no clubbing, ROM intact, no edema. [] Neurologic: Alert and oriented X 3, normal motor function, normal sensory function, no focal deficits noted. [] Psychologic: Affect anxious l, judgement normal, mood normal. [] EKG: EKG: [] Radiology/Procedures: Radiology/Procedures: [] Course & Med Decision Making: Course & Med Decision Making Pertinent Labs and Imaging studies reviewed. (See chart for details) Patient use warm Epson salts packing under the pannus 4 times a day. After soaking area with Epson salts to massage and Polysporin. Patient to take Bactrim DS twice a day. Patient take Diflucan 100 mg a day. Patient take [id number] Tylenol for pain. Patient follow-up with primary care. Patient return if any concerns. Impression: 1. Panus rash 2. Morbid Obesity 3. Pt. Hx. of Suspect Narcotic Seeking Behaviors' K Trac- notification 4. Chronic abdomen pain 5. Tobacco Use [] Dragon Disclaimer: Dragon Disclaimer: This electronic medical record was generated, in whole or in part, using a voice recognition dictation system. Departure Departure: Disposition: HOME/RESIDENCE PRIOR TO ADM Condition: STABLE Referrals: PCP,NO (PCP) Scripts Sulfamethoxazole/Trimethoprim (BACTRIM DS TABLET) 1 Each Tablet 1 TAB PO BID for rash for 10 Days, #20 TAB 0 Refills Prov: KAREN BACA MD 08/06/19 Fluconazole (DIFLUCAN) 100 Mg Tablet 100 MG PO DAILY for rash for 10 Days, #10 TAB Prov: KAREN BACA MD 08/06/19 Dragon Disclaimer This chart was dictated in whole or in part using Voice Recognition software in a busy, high-work load, and often noisy Emergency Department environment. It may contain unintended and wholly unrecognized errors or omissions. Dragon Disclaimer This chart was dictated in whole or in part using Voice Recognition software in a busy, high-work load, and often noisy Emergency Department environment. It may contain unintended and wholly unrecognized errors or omissions. KAREN BACA MD August 06, 2019 19:03
[2019-08-06 19:15] VITALS: BP 172/104
[2019-08-06 19:53] LABS: BACTERIA,URINE FEW /HPF (0-FEW); BILIRUBIN,URINE NEG (NEG); CLARITY,URINE HAZY; COLOR,URINE YELLOW; GLUCOSE,URINE NEG (NEG); NITRITE,URINE NEG (NEG); RBC,URINE OCC /HPF (0-2); UROBILINOGEN,URINE 0.2 mg/dL (0.2 mg/dL); WBC,URINE OCC /HPF (0-4)
[2019-08-06 19:54] LABS: AMORPHOUS SEDIMENT,UR PRESENT /HPF; BARBITURATES NEG (NEG); BENZODIAZEPINES NEG (NEG); CANNABINOIDS NEG (NEG); COCAINE NEG (NEG); METHADONE NEG (NEG); OPIATES POS (NEG); PHENCYCLIDINE NEG (NEG); SQUAMOUS EPITHELIAL CELL,UR MOD /LPF
[2019-08-06 19:56] LABS: AMPHETAMINE/METHAMPHETAMINE NEG (NEG)
[2019-08-06] MEDS ORDERED: FLUCONAZOLE 100 MG TABLET. PO ONE (20:00)
[2019-08-06] MEDS ORDERED: SMZ/TMP 800/160MG TABLET. PO ONE (20:00)
[2019-08-06] MEDS ORDERED: FLUC100T7 PO (20:01)
[2019-08-06] MEDS ORDERED: SULF1TAB24 PO (20:01)
== END 2019-08-06 20:05 | disposition home or self-care (01) ==
LOC: ER 18:59
DX: R21 Rash and other nonspecific skin eruption (principal); G89.29 Other chronic pain; R10.9 Unspecified abdominal pain; E65 Localized adiposity; F17.210 Nicotine dependence, cigarettes, uncomplicated; E66.01 Morbid (severe) obesity due to excess calories; Z68.45 Body mass index [BMI] 70 or greater, adult; Z88.6 Allergy status to analgesic agent; Z88.1 Allergy status to other antibiotic agents; Z88.8 Allergy status to other drugs, medicaments and biological substances
CPT/HCPCS: 36415; 80307; 81001; 81025; 99283

== ENCOUNTER 2019-08-12 22:37 | Emergency (ER) | payer OTHER ==
[~2019-08-12] VITALS: Ht 162.6 cm; Wt 200.0 kg
[~2019-08-12 22:37] MED LIST changes: +FLUC100T7 PO
[2019-08-12 23:01] VITALS: BP 150/83
[2019-08-12] MEDS ORDERED: MORPHINE SULFATE 4 MG/ML DISP.SYRIN. IV ONE (23:30)
[2019-08-12] MEDS ORDERED: CONTRAST GIVEN MC PRN (23:30)
[2019-08-12] MEDS ORDERED: IOHEXOL 300 MG/ML 75 ML VIAL. IV ONE (23:30)
[2019-08-12] MEDS ORDERED: ONDANSETRON PF 4 MG/2 ML VIAL. IVP ONE (23:30)
[2019-08-12 23:41] LABS: BASO # 0.1 x10^3/uL (0.0-0.2); BASO % 1 % (0-3); EOS # 0.2 x10^3/uL (0.0-0.7); EOS % 2 % (0-3); HEMATOCRIT 36.6 % (36.0-47.0); HEMOGLOBIN 11.7 g/dL (12.0-15.5); LYMPH # 2.5 x10^3/uL (1.0-4.8); LYMPH % 24 % (24-48); MEAN CORPUSCULAR HEMOGLOBIN 27 pg (25-35); MEAN CORPUSCULAR HGB CONC 32 g/dL (31-37); MEAN CORPUSCULAR VOLUME 83 fL (79-100); MONO # 0.6 x10^3/uL (0.0-1.1); MONO % 5 % (0-9); NEUT # 6.9 x10^3uL (1.8-7.7); NEUT % 67 % (31-73); PLATELET COUNT 298 x10^3/uL (140-400); RED BLOOD COUNT 4.44 x10^6/uL (3.50-5.40); RED CELL DISTRIBUTION WIDTH 16.4 % (11.5-14.5); WHITE BLOOD COUNT 10.2 x10^3/uL (4.0-11.0)
[2019-08-12 23:45] LABS: CALCIUM 8.8 mg/dL (8.5-10.1); CREATININE 0.7 mg/dL (0.6-1.0); GFR 98.9; POTASSIUM 3.6 mmol/L (3.5-5.1)
[2019-08-12 23:51] LABS: ALBUMIN 3.2 g/dL (3.4-5.0); ALBUMIN/GLOBULIN RATIO 0.8 (1.0-1.7); TOTAL BILIRUBIN 0.5 mg/dL (0.2-1.0); TOTAL PROTEIN 7.2 g/dL (6.4-8.2)
--- NOTE | 2019-08-13 00:13 | PHYS DOC ---
Past History Past Medical History: Abscess, Endometriosis, Kidney Stones, Other Additional Past Medical Histor: umbilical hernia; cellulitis Past Surgical History: Cholecystectomy, Smoking: Cigarettes Alcohol Use: None Drug Use: None General Adult EDM: Chief Complaint: ABDOMINAL PAIN HPI: HPI: 29-year-old female presents with abdominal pain. The patient is well-known to the emergency room. She frequently comes in with abdominal pain requesting narcotic pain medications. She has a known abdominal hernia. She states that she has been placed on clindamycin for an infection around her ulceration C- section scar. She did have complications after her last leading to abscesses and seromas. She states tonight that she felt a popping sensation and thinks that her hernia may have changed in some way. She rates the pain an 8.5 out of 10. She denies fever chills. Review of Systems: Review of Systems: Constitutional: Denies fever or chills Eyes: Denies change in visual acuity HENT: Denies nasal congestion or sore throat Respiratory: Denies cough or shortness of breath Cardiovascular: Denies chest pain or edema GI: Lower abdominal pain. Denies nausea, vomiting, bloody stools or diarrhea : Denies dysuria Musculoskeletal: Denies back pain or joint pain Integument: Denies rash Neurologic: Denies headache, focal weakness or sensory changes Endocrine: Denies polyuria or polydipsia Lymphatic: Denies swollen glands Psychiatric: Denies depression or anxiety Heart Score: Risk Factors: Risk Factors: DM, Current or recent (<one month) smoker, HTN, HLP, family history of CAD, obesity. Risk Scores: Score 0 - 3: 2.5% MACE over next 6 weeks - Discharge Home Score 4 - 6: 20.3% MACE over next 6 weeks - Admit for Clinical Observation Score 7 - 10: 72.7% MACE over next 6 weeks - Early Invasive Strategies Current Medications: Current Meds: Current Medications Medications (Trade) Dose Ordered Sig/Gina Start Time Stop Time Status Last Admin Dose Admin Info (Do NOT chart on this entry -- for MONITORING) 1 each PRN DAILY PRN 08/12/19 23:30 08/14/19 23:29 Iohexol (Omnipaque 300 Mg/ml) 75 ml 1X ONCE 08/12/19 23:30 08/12/19 23:31 DC 08/12/19 23:42 75 ML Morphine Sulfate (Morphine 4mg Syringe) 4 mg 1X ONCE 08/12/19 23:30 08/12/19 23:31 UNV 08/12/19 23:36 4 MG Ondansetron HCl (Zofran) 4 mg 1X ONCE 08/12/19 23:30 08/12/19 23:31 UNV 08/12/19 23:36 4 MG Allergies: Allergies: Allergies Coded Allergies Type Severity Reaction Last Updated Verified chlorpromazine Allergy Intermediate 10/22/18 No dicyclomine Allergy Intermediate 10/22/18 No duloxetine Allergy Intermediate 10/22/18 No fentanyl Allergy Intermediate 10/22/18 No ibuprofen Allergy Intermediate Hives 10/22/18 Yes ketorolac Allergy Intermediate 10/22/18 No promethazine Allergy Intermediate 05/07/18 No tramadol Allergy Intermediate 05/21/18 No Physical Exam: PE: Constitutional: Well developed, morbidly obese, well nourished, no acute distress, non-toxic appearance. [] HENT: Normocephalic, atraumatic, bilateral external ears normal, oropharynx moist, no oral exudates, nose normal. [] Eyes: PERRLA, EOMI, conjunctiva normal, no discharge. [] Neck: Normal range of motion, no tenderness, supple, no stridor. [] Cardiovascular: Heart rate regular rhythm, no murmur [] Lungs & Thorax: Bilateral breath sounds clear to auscultation [] Abdomen: Bowel sounds normal, soft, lower abdominal tenderness, no masses, no pulsatile masses. [] Skin: Warm, dry, no erythema, no rash. [] Back: No tenderness, no CVA tenderness. [] Extremities: No tenderness, no cyanosis, no clubbing, ROM intact, no edema. [] Neurologic: Alert and oriented X 3, normal motor function, normal sensory function, no focal deficits noted. [] Psychologic: Affect normal, judgement normal, mood normal. [] Current Patient Data: Labs: Laboratory Tests Test 08/12/19 23:25 White Blood Count 10.2 x10^3/uL (4.0-11.0) Red Blood Count 4.44 x10^6/uL (3.50-5.40) Hemoglobin 11.7 g/dL (12.0-15.5) L Hematocrit 36.6 % (36.0-47.0) Mean Corpuscular Volume 83 fL (79-100) Mean Corpuscular Hemoglobin 27 pg (25-35) Mean Corpuscular Hemoglobin Concent 32 g/dL (31-37) Red Cell Distribution Width 16.4 % (11.5-14.5) H Platelet Count 298 x10^3/uL (140-400) Neutrophils (%) (Auto) 67 % (31-73) Lymphocytes (%) (Auto) 24 % (24-48) Monocytes (%) (Auto) 5 % (0-9) Eosinophils (%) (Auto) 2 % (0-3) Basophils (%) (Auto) 1 % (0-3) Neutrophils # (Auto) 6.9 x10^3uL (1.8-7.7) Lymphocytes # (Auto) 2.5 x10^3/uL (1.0-4.8) Monocytes # (Auto) 0.6 x10^3/uL (0.0-1.1) Eosinophils # (Auto) 0.2 x10^3/uL (0.0-0.7) Basophils # (Auto) 0.1 x10^3/uL (0.0-0.2) Sodium Level 140 mmol/L (136-145) Potassium Level 3.6 mmol/L (3.5-5.1) Chloride Level 101 mmol/L (98-107) Carbon Dioxide Level 30 mmol/L (21-32) Anion Gap 9 (6-14) Blood Urea Nitrogen 9 mg/dL (7-20) Creatinine 0.7 mg/dL (0.6-1.0) Estimated GFR (Cockcroft-Gault) 98.9 BUN/Creatinine Ratio 13 (6-20) Glucose Level 114 mg/dL (70-99) H Calcium Level 8.8 mg/dL (8.5-10.1) Total Bilirubin 0.5 mg/dL (0.2-1.0) Aspartate Amino Transferase (AST) 29 U/L (15-37) Alanine Aminotransferase (ALT) 33 U/L (14-59) Alkaline Phosphatase 79 U/L (46-116) Total Protein 7.2 g/dL (6.4-8.2) Albumin 3.2 g/dL (3.4-5.0) L Albumin/Globulin Ratio 0.8 (1.0-1.7) L Vital Signs: Vital Signs Date Time Temp Pulse Resp B/P (MAP) Pulse Ox O2 Delivery O2 Flow Rate FiO2 08/12/19 23:36 98 Room Air 08/12/19 23:01 98.8 108 20 150/83 (105) EKG: EKG: [] Radiology/Procedures: Radiology/Procedures: [] Impressions: CT scan of the abdomen and pelvis with contrast 08/12/2019 CLINICAL HISTORY: Lower abdominal pain. TECHNIQUE: After the intravenous administration of 74 cc of Omnipaque 300 only, contiguous, 5 mm axial sections were obtained through the abdomen and pelvis. One or more of the following individualized dose reduction techniques were utilized for this study: 1. Automated exposure control. 2. Adjustment of the mA and/or kV according to patient size. 3. Use of iterative reconstruction technique. FINDINGS: Images through the lung bases demonstrate minimal dependent subsegmental atelectasis bilaterally. The liver is mildly enlarged. It measures 21 cm in length. Decreased attenuation of the liver parenchyma is seen consistent with fatty infiltration. The spleen, pancreas, adrenal glands and kidneys are within normal limits. The abdominal aorta tapers normally. Surgical clips are seen within the gallbladder fossa consistent with a cholecystectomy. No free fluid or free air is seen within the abdomen. There is no evidence of bowel obstruction. The appendix is well-visualized and is within normal limits. A fat-containing ventral hernia is seen involving the inferior aspect of the anterior abdominal wall. This measures 4.1 cm in greatest transverse diameter. Increased density is seen within the subcutaneous fat of the lower anterior abdominal wall in the region of the pelvis which also surrounds the umbilicus. Skin thickening is noted. These findings likely reflect a cellulitis. No abscess is seen Images through the pelvis demonstrate the urinary bladder distended with urine. No adnexal mass is seen. No free fluid is noted. Minimal S-shaped curvature of the thoracolumbar spine is seen. IMPRESSION: Findings are seen which are felt to most likely reflect a cellulitis involving the inferior anterior abdominal wall. No abscess is seen. Electronically signed by: Danny Duque MD (08/13/2019 12:32 AM) [id number] DICTATED AND SIGNED BY: DANNY DUQUE MD DATE: 08/13/19 0032 CC: CONNOR,YASMINE DO; PCP,NO ~ Course & Med Decision Making: Course & Med Decision Making Pertinent Labs and Imaging studies reviewed. (See chart for details) The patient's labs are unremarkable. The patient's CT of abdomen and pelvis shows no bowel obstruction. She does have a hernia. It appears to have findings consistent with cellulitis. Patient is already on oral antibiotics. I did give her 4 mg of morphine in the emergency room. I will not discharge her with any pain medications as she has had 118 prescriptions in the last 2 years from 89 prescribers utilizing almost 30 pharmacies. She is stable for discharge at this time. [] Dragon Disclaimer: Dragon Disclaimer: This electronic medical record was generated, in whole or in part, using a voice recognition dictation system. Departure Departure: Impression: Primary Impression: Abdominal pain Qualified Codes: R10.30 - Lower abdominal pain, unspecified Additional Impression: Left against medical advice Disposition: HOME/RESIDENCE PRIOR TO ADM Condition: STABLE Referrals: PCPMANDI (PCP) Patient Instructions: Abdominal Pain, [id number], Cellulitis, [id number] YASMINE CONNOR DO August 13, 2019 00:13
--- NOTE | 2019-08-13 00:35 | RAD ---
CT scan of the abdomen and pelvis with contrast 08/12/2019 CLINICAL HISTORY: Lower abdominal pain. TECHNIQUE: After the intravenous administration of 74 cc of Omnipaque 300 only, contiguous, 5 mm axial sections were obtained through the abdomen and pelvis. One or more of the following individualized dose reduction techniques were utilized for this study: 1. Automated exposure control. 2. Adjustment of the mA and/or kV according to patient size. 3. Use of iterative reconstruction technique. FINDINGS: Images through the lung bases demonstrate minimal dependent subsegmental atelectasis bilaterally. The liver is mildly enlarged. It measures 21 cm in length. Decreased attenuation of the liver parenchyma is seen consistent with fatty infiltration. The spleen, pancreas, adrenal glands and kidneys are within normal limits. The abdominal aorta tapers normally. Surgical clips are seen within the gallbladder fossa consistent with a cholecystectomy. No free fluid or free air is seen within the abdomen. There is no evidence of bowel obstruction. The appendix is well-visualized and is within normal limits. A fat-containing ventral hernia is seen involving the inferior aspect of the anterior abdominal wall. This measures 4.1 cm in greatest transverse diameter. Increased density is seen within the subcutaneous fat of the lower anterior abdominal wall in the region of the pelvis which also surrounds the umbilicus. Skin thickening is noted. These findings likely reflect a cellulitis. No abscess is seen Images through the pelvis demonstrate the urinary bladder distended with urine. No adnexal mass is seen. No free fluid is noted. Minimal S-shaped curvature of the thoracolumbar spine is seen. IMPRESSION: Findings are seen which are felt to most likely reflect a cellulitis involving the inferior anterior abdominal wall. No abscess is seen. Electronically signed by: Danny Beavers MD (08/13/2019 12:32 AM) [id number]
[2019-08-13] MEDS ORDERED: ONDANSETRON 4MG ODT 4TABLET STARTPACK. PO ONE ×2 (00:48→01:00)
[2019-08-13] MEDS ORDERED: MORPHINE SULFATE 4 MG/ML DISP.SYRIN. IV ONE (01:00)
[2019-08-13] MEDS ORDERED: ONDANSETRON PF 4 MG/2 ML VIAL. IVP ONE (01:00)
== END 2019-08-13 00:59 | disposition home or self-care (01) ==
LOC: ER 22:37
DX: R10.30 Lower abdominal pain, unspecified (principal); K43.9 Ventral hernia without obstruction or gangrene; Z87.442 Personal history of urinary calculi; F17.210 Nicotine dependence, cigarettes, uncomplicated; Z90.49 Acquired absence of other specified parts of digestive tract; Z98.890 Other specified postprocedural states; Z88.8 Allergy status to other drugs, medicaments and biological substances; Z88.6 Allergy status to analgesic agent
CPT/HCPCS: 36415; 74177; 80053; 85025; 96374; 96375; 96376; 99285; J2270; J2405; Q0162; Q9967

== ENCOUNTER 2020-01-20 20:15 | Emergency (ER) | payer OTHER ==
[~2020-01-20] VITALS: Ht 162.6 cm; Wt 200.0 kg
[2020-01-20 21:11] VITALS: BP 144/87
--- NOTE | 2020-01-20 22:52 | PHYS DOC ---
Past History Past Medical History: Abscess, DVT, Endometriosis, Kidney Stones, Other Additional Past Medical Histor: umbilical hernia; cellulitis Past Surgical History: Cholecystectomy, Smoking: Cigarettes Alcohol Use: None Drug Use: None General Adult EDM: Chief Complaint: LOWER EXT PAIN HPI: HPI: 29-year-old female presents with right lower leg pain and concern for cellulitis. Patient has a known blood clot in her right lower leg. She is being treated with Xarelto. She presents tonight because she is switching to pain management and has been unable to get into them until Wednesday. Her leg has been hurting more and she has noticed there is been increased redness around a couple of sores on this lower leg. She also feels like she is retaining fluid again. She has had several episodes of fluid retention resolved with Lasix. She is only been put on Lasix intermittently as needed. She does not have any at home. She denies fever or chills. She is well-known to the emergency room for previous drug-seeking behavior. She also has several legitimate medical problems. Review of Systems: Review of Systems: Constitutional: Denies fever or chills Eyes: Denies change in visual acuity HENT: Denies nasal congestion or sore throat Respiratory: Denies cough or shortness of breath Cardiovascular: Denies chest pain or edema GI: Denies abdominal pain, nausea, vomiting, bloody stools or diarrhea : Denies dysuria Musculoskeletal: Denies back pain or joint pain Integument: Cellulitis right lower leg Neurologic: Denies headache, focal weakness or sensory changes Endocrine: Denies polyuria or polydipsia Lymphatic: Denies swollen glands Psychiatric: Denies depression or anxiety Current Medications: Current Meds: Current Medications Medications (Trade) Dose Ordered Sig/Gina Start Time Stop Time Status Last Admin Dose Admin Furosemide (Lasix) 40 mg 1X ONCE 01/20/20 23:00 01/20/20 23:01 Hydromorphone HCl (Dilaudid) 1 mg 1X ONCE 01/20/20 23:00 01/20/20 23:01 Ondansetron HCl (Zofran) 4 mg 1X ONCE 01/20/20 23:00 01/20/20 23:01 Allergies: Allergies: Allergies Coded Allergies Type Severity Reaction Last Updated Verified chlorpromazine Allergy Intermediate 10/22/18 No dicyclomine Allergy Intermediate 10/22/18 No duloxetine Allergy Intermediate 10/22/18 No fentanyl Allergy Intermediate 10/22/18 No ibuprofen Allergy Intermediate Hives 10/22/18 Yes ketorolac Allergy Intermediate 10/22/18 No promethazine Allergy Intermediate 05/07/18 No tramadol Allergy Intermediate 05/21/18 No Physical Exam: PE: Constitutional: Well developed, well nourished, morbidly obese, no acute distress, non-toxic appearance. [] HENT: Normocephalic, atraumatic, bilateral external ears normal, oropharynx moist, no oral exudates, nose normal. [] Eyes: PERRLA, EOMI, conjunctiva normal, no discharge. [] Neck: Normal range of motion, no tenderness, supple, no stridor. [] Cardiovascular: Heart rate regular rhythm, no murmur [] Lungs & Thorax: Bilateral breath sounds clear to auscultation [] Abdomen: Bowel sounds normal, soft, no tenderness, no masses, no pulsatile masses. [] Skin: Warm, erythematous area of the right lower leg consistent with cellulitis. No palpable abscess. [] Back: No tenderness, no CVA tenderness. [] Extremities: No tenderness, no cyanosis, no clubbing, ROM intact, 3+ edema bilateral lower legs. [] Neurologic: Alert and oriented X 3, normal motor function, normal sensory function, no focal deficits noted. [] Psychologic: Affect normal, judgement normal, mood normal. [] Current Patient Data: Vital Signs: Vital Signs Date Time Temp Pulse Resp B/P (MAP) Pulse Ox O2 Delivery O2 Flow Rate FiO2 01/20/20 21:11 97.3 106 20 144/87 (106) 97 Room Air EKG: EKG: [] Radiology/Procedures: Radiology/Procedures: [] Heart Score: Risk Factors: Risk Factors: DM, Current or recent (<one month) smoker, HTN, HLP, family history of CAD, obesity. Risk Scores: Score 0 - 3: 2.5% MACE over next 6 weeks - Discharge Home Score 4 - 6: 20.3% MACE over next 6 weeks - Admit for Clinical Observation Score 7 - 10: 72.7% MACE over next 6 weeks - Early Invasive Strategies Course & Med Decision Making: Course & Med Decision Making Pertinent Labs and Imaging studies reviewed. (See chart for details) The patient's labs are unremarkable except for a slightly low potassium. I have treated her with a milligram of Dilaudid IV, Zofran, and a gram of Rocephin. I will discharge her with Keflex for 7 more days. I will also give her a short course of Bangs until she gets to pain management on Wednesday. She is stable for discharge at this time. [] Dragon Disclaimer: Dragon Disclaimer: This electronic medical record was generated, in whole or in part, using a voice recognition dictation system. Departure Departure: Impression: Primary Impression: Cellulitis of right lower extremity Additional Impression: Peripheral edema Disposition: DC HOME SELF CARE/HOMELESS Condition: STABLE Referrals: PCP,MANDI (PCP) Patient Instructions: Cellulitis, [id number], Peripheral Edema Scripts Hydrocodone Bit/Acetaminophen (NORCO 5-325 TABLET) 1 Each Tablet 1 TAB PO PRN Q6HRS PRN for PAIN, #10 TAB 0 Refills Prov: YASMINE CONNOR DO 01/20/20 Cephalexin (KEFLEX) 500 Mg Capsule 1 CAP PO TID for cellulitis for 7 Days, #21 CAP 0 Refills Prov: YASMINE CONNOR DO 01/20/20 YASMINE CONNOR DO Jan 20, 2020 22:52
[2020-01-20] MEDS ORDERED: HYDROmorphone PF 1 MG/ML DISP.SYRIN IVP ONE (23:00)
[2020-01-20] MEDS ORDERED: ONDANSETRON PF 4 MG/2 ML VIAL. IVP ONE (23:00)
[2020-01-20] MEDS ORDERED: FUROSEMIDE 40 MG/4 ML VIAL IVP ONE (23:00)
[2020-01-20 23:12] LABS: BASO # 0.1 x10^3/uL (0.0-0.2); BASO % 1 % (0-3); EOS # 0.2 x10^3/uL (0.0-0.7); EOS % 2 % (0-3); HEMATOCRIT 40.2 % (36.0-47.0); LYMPH % 22 % (24-48); MEAN CORPUSCULAR HEMOGLOBIN 28 pg (25-35); MEAN CORPUSCULAR HGB CONC 33 g/dL (31-37); MEAN CORPUSCULAR VOLUME 86 fL (79-100); MONO # 0.4 x10^3/uL (0.0-1.1); MONO % 4 % (0-9); NEUT # 6.5 x10^3uL (1.8-7.7); NEUT % 70 % (31-73); PLATELET COUNT 255 x10^3/uL (140-400); RED BLOOD COUNT 4.66 x10^6/uL (3.50-5.40); RED CELL DISTRIBUTION WIDTH 16.2 % (11.5-14.5); WHITE BLOOD COUNT 9.2 x10^3/uL (4.0-11.0)
[2020-01-20 23:29] LABS: ALBUMIN 3.2 g/dL (3.4-5.0); ALBUMIN/GLOBULIN RATIO 0.7 (1.0-1.7); CALCIUM 9.3 mg/dL (8.5-10.1); CREATININE 0.9 mg/dL (0.6-1.0); POTASSIUM 3.3 mmol/L (3.5-5.1); TOTAL BILIRUBIN 0.4 mg/dL (0.2-1.0); TOTAL PROTEIN 7.7 g/dL (6.4-8.2)
[2020-01-20] MEDS ORDERED: HYDR-3165 PO (23:41)
[2020-01-20] MEDS ORDERED: CEPH-264 PO (23:41)
[2020-01-20] MEDS ORDERED: IV NORMAL SALINE 50ML 50 ML ONE (23:44)
[2020-01-20] MEDS ORDERED: cefTRIAXone SODIUM 1 GM VIAL ONE (23:44)
[2020-01-21] MEDS ORDERED: HYDROmorphone PF 1 MG/ML DISP.SYRIN IVP ONE (00:30)
== END 2020-01-21 00:05 | disposition home or self-care (01) ==
LOC: ER 20:15
DX: L03.115 Cellulitis of right lower limb (principal); R60.0 Localized edema; F17.210 Nicotine dependence, cigarettes, uncomplicated; Z86.718 Personal history of other venous thrombosis and embolism; Z87.442 Personal history of urinary calculi; Z88.6 Allergy status to analgesic agent; Z88.8 Allergy status to other drugs, medicaments and biological substances
CPT/HCPCS: 36415; 80053; 85025; 96374; 96375; 96376; 99284; J0696; J1170; J1940; J2405

== ENCOUNTER 2020-06-22 18:46 | Emergency (ER) | payer OTHER ==
[~2020-06-22] VITALS: Ht 162.6 cm; Wt 185.0 kg
[~2020-06-22 18:46] MED LIST changes: +CEPH-264 PO; -CLIN300C8 PO; +CLIN300C9 PO
[2020-06-22 19:13] VITALS: BP 154/107
--- NOTE | 2020-06-22 19:51 | PHYS DOC ---
Past History Past Medical History: Abscess, DVT, Endometriosis, Kidney Stones, Other Additional Past Medical Histor: umbilical hernia; cellulitis (JAI BERGER APRN) Past Surgical History: Cholecystectomy, (JAI BERGER APRN) Smoking: Cigarettes Alcohol Use: None Drug Use: None (JAI BERGER APRN) General Adult EDM: Chief Complaint: Abdominal pain HPI: HPI: Patient is a 30-year-old female presents with right-sided abdominal pain. Patient states that she has been soaking 4 pads an hour since 8:00 this morning. Patient states that she is currently on blood thinners for a history of a DVT. Patient is also reporting nausea and vomiting. Patient denies taking anything for pain prior to arrival. Patient states that she has not had a period since 2018 due to the Nexplanon implant. Patient denies fever, shortness of breath. (JAI BERGER APRN) Review of Systems: Review of Systems: Constitutional: Denies fever or chills Eyes: Denies change in visual acuity HENT: Denies nasal congestion or sore throat Respiratory: Denies cough or shortness of breath Cardiovascular: Denies chest pain or edema GI: Reports right-sided abdominal pain, nausea, vomiting. : Denies dysuria Musculoskeletal: Denies back pain or joint pain Integument: Denies rash Neurologic: Denies headache, focal weakness or sensory changes Endocrine: Denies polyuria or polydipsia Lymphatic: Denies swollen glands Psychiatric: Denies depression or anxiety Vaginal: Reports soaking 4-5 pads an hour (JAI BERGER APRN) Allergies: Allergies: Allergies Coded Allergies Type Severity Reaction Last Updated Verified chlorpromazine Allergy Intermediate 10/22/18 No dicyclomine Allergy Intermediate 10/22/18 No duloxetine Allergy Intermediate 10/22/18 No fentanyl Allergy Intermediate 10/22/18 No ibuprofen Allergy Intermediate Hives 10/22/18 Yes ketorolac Allergy Intermediate 10/22/18 No promethazine Allergy Intermediate 05/07/18 No tramadol Allergy Intermediate 05/21/18 No (JAI BERGER APRN) Physical Exam: PE: Constitutional: Well developed, well nourished, no acute distress, non-toxic appearance. [] HENT: Normocephalic, atraumatic, bilateral external ears normal, oropharynx moist, no oral exudates, nose normal. [] Eyes: PERRLA, EOMI, conjunctiva normal, no discharge. [] Neck: Normal range of motion, no tenderness, supple, no stridor. [] Cardiovascular:Heart rate regular rhythm, no murmur [] Lungs & Thorax: Bilateral breath sounds clear to auscultation [] Abdomen: Bowel sounds normal, soft, no tenderness, no masses, no pulsatile masses. [] Skin: Warm, dry, no erythema, no rash. [] Back: No tenderness, no CVA tenderness. [] Extremities: No tenderness, no cyanosis, no clubbing, ROM intact, no edema. [] Neurologic: Alert and oriented X 3, normal motor function, normal sensory function, no focal deficits noted. [] Psychologic: Affect normal, judgement normal, mood normal. [] (JAI BERGER APRN) Current Patient Data: Vital Signs: Vital Signs Date Time Temp Pulse Resp B/P (MAP) Pulse Ox O2 Delivery O2 Flow Rate FiO2 06/22/20 19:13 98.3 98 18 154/107 (123) 98 Room Air (JAI BERGER APRN) EKG: EKG: [] (JAI BERGER APRN) Radiology/Procedures: Radiology/Procedures: [] (JAI BERGER APRN) Radiology/Procedures: Study: CT abdomen/pelvis without intravenous contrast Indication: Abdominal pain. Comparison: 06/03/2020 Technique: Helical CT imaging performed of the abdomen and pelvis without the use of intravenous contrast. Sagittal and coronal reformats were obtained. One or more of the following individualized dose reduction techniques were utilized for this examination: 1. Automated exposure control 2. Adjustment of the mA and/or kV according to patient size 3. Use of iterative reconstruction technique. Findings: Inherently limited evaluation without intravenous contrast. No significant abnormality at the lower chest. The liver is again noted to be prominent in size. Surgically absent gallbladder. Unchanged pancreas and mild splenomegaly. Mildly increased density within the intrarenal collecting system on the right more so than left is compatible with excreted contrast from a recent study. Contrast is also seen within the urinary bladder. No collecting system dilatation. Within normal limits uterus and ovaries. No acute abnormality of the colon which is mostly collapsed. The appendix is not visualized and is presumed surgically absent. Nonobstructed small bowel. Poorly evaluated stomach on account of underdistention. Nonaneurysmal aorta. No lymphadenopathy. Diastatic ventral midline unchanged from the most recent comparison, there is also a fat-containing umbilical hernia with surrounding fatty reticulation that has not changed. Skin thickening and fatty reticulation at the patient's pannus is unchanged. No newly seen focal fluid collection. No acute or aggressive osseous process. Impression: 1. No acute abnormality seen throughout the abdomen or pelvis. 2. Fat-containing umbilical hernia and fatty reticulation along the ventral midline is unchanged from 06/03/2020. More pronounced inflammatory changes were present in this region and downward along the patient's pannus on a study performed 08/12/2019. Stability since 06/03/2020 raises the question of scarring but active inflammation remains possible. Correlate for localized erythema. No evidence for a drainable fluid collection. 3. Note is made that there is some excreted contrast in the collecting system suggesting a recently performed CT elsewhere. The patient has undergone numerous CT examinations at various hospitals mostly since 2017. Recommend caution with future CT imaging given patient age and the extent of accumulating radiation exposure. Electronically signed by: NATALEE CHAVEZ MD (06/22/2020 9:27 PM) [facility] (LOVE THORNTON MD) Heart Score: C/O Chest Pain: No Risk Factors: Risk Factors: DM, Current or recent (<one month) smoker, HTN, HLP, family history of CAD, obesity. Risk Scores: Score 0 - 3: 2.5% MACE over next 6 weeks - Discharge Home Score 4 - 6: 20.3% MACE over next 6 weeks - Admit for Clinical Observation Score 7 - 10: 72.7% MACE over next 6 weeks - Early Invasive Strategies (JAI BERGER APRN) Course & Med Decision Making: Course & Med Decision Making Pertinent Labs and Imaging studies reviewed. (See chart for details) []CT abdomen ordered. Patient states she has been soaking through 4-5 pads an hour since 8am. Patient given Zofran and Dilaudid. Patient reports she is on a blood thinner due to past history of DVT. (JAI BERGER APRN) Course & Med Decision Making Took over patient's care at checkout. Laboratory analysis notable for mild leukocytosis. Urine negative. CT and chest x-ray not concerning. On reassessment patient's vital signs were not concerning. Patient's pain improved. Printed off patient's CT report for patient and her primary care physician. Discussed blood in the urine, patient stated advised to call primary care physician first thing Wednesday morning to discuss ED visit and set up a follow-up as soon as possible. Gave strict return precautions to the emergency department. (LOVE THORNTON MD) Dragon Disclaimer: Dragon Disclaimer: This electronic medical record was generated, in whole or in part, using a voice recognition dictation system. (JAI BERGER APRN) Departure Departure: Impression: Primary Impression: Abdominal pain Disposition: DC HOME SELF CARE/HOMELESS Condition: IMPROVED Referrals: PCP,NO (PCP) Patient Instructions: Abdominal Pain (Nonspecific) Additional Instructions: Please read all the attached information. Your imaging was not concerning and you were given a report for your primary care physician. Your urinalysis was s till pending when you left. You will be called if you have a urinary tract infection that needs to be treated to initiate treatment. Please call your primary care physician first thing Wednesday morning to discuss your ED visit and need for follow-up visit. Please come back to the emergency department with new or concerning symptoms as discussed. JAI BERGER APRN Jun 22, 2020 19:50 LOVE THORNTON MD Jun 22, 2020 21:51
[2020-06-22] MEDS ORDERED: HYDROmorphone PF 1 MG/ML DISP.SYRIN IVP ONE (20:00)
[2020-06-22 20:10] LABS: CALCIUM 9.4 mg/dL (8.5-10.1); CREATININE 0.8 mg/dL (0.6-1.0); GFR 84.2; POTASSIUM 4.1 mmol/L (3.5-5.1)
[2020-06-22 20:16] LABS: ALBUMIN 3.3 g/dL (3.4-5.0); ALBUMIN/GLOBULIN RATIO 0.7 (1.0-1.7); TOTAL BILIRUBIN 0.4 mg/dL (0.2-1.0); TOTAL PROTEIN 8.1 g/dL (6.4-8.2)
[2020-06-22 20:19] LABS: BASO # 0.3 x10^3/uL (0.0-0.2); BASO % 2 % (0-3); EOS # 0.1 x10^3/uL (0.0-0.7); EOS % 1 % (0-3); HEMATOCRIT 39.3 % (36.0-47.0); HEMOGLOBIN 12.6 g/dL (12.0-15.5); LYMPH # 2.8 x10^3/uL (1.0-4.8); LYMPH % 20 % (24-48); MEAN CORPUSCULAR HEMOGLOBIN 28 pg (25-35); MEAN CORPUSCULAR HGB CONC 32 g/dL (31-37); MEAN CORPUSCULAR VOLUME 86 fL (79-100); MONO # 0.6 x10^3/uL (0.0-1.1); MONO % 4 % (0-9); NEUT # 10.5 x10^3uL (1.8-7.7); NEUT % 73 % (31-73); PLATELET COUNT 263 x10^3/uL (140-400); RED BLOOD COUNT 4.58 x10^6/uL (3.50-5.40); WHITE BLOOD COUNT 14.3 x10^3/uL (4.0-11.0)
[2020-06-22] MEDS ORDERED: ONDANSETRON PF 4 MG/2 ML VIAL. IVP ONE ×2 (20:45→22:30)
[2020-06-22 20:46] LABS: PLT ESTIMATE ADEQUATE (ADEQUATE)
--- NOTE | 2020-06-22 21:29 | RAD ---
Study: CT abdomen/pelvis without intravenous contrast Indication: Abdominal pain. Comparison: 06/03/2020 Technique: Helical CT imaging performed of the abdomen and pelvis without the use of intravenous cont rast. Sagittal and coronal reformats were obtained. One or more of the following individualized dose reduction techniques were utilized for this examinat ion: 1. Automated exposure control 2. Adjustment of the mA and/or kV according to patient size 3. Use of iterative reconstruction technique. Findings: Inherently limited evaluation without intravenous contrast. No significant abnormality at the lower chest. The liver is again noted to be prominent in size. Surgically absent gallbladder. Unchanged pancreas a nd mild splenomegaly. Mildly increased density within the intrarenal collecting system on the right m ore so than left is compatible with excreted contrast from a recent study. Contrast is also seen with in the urinary bladder. No collecting system dilatation. Within normal limits uterus and ovaries. No acute abnormality of the colon which is mostly collapsed. The appendix is not visualized and is pr esumed surgically absent. Nonobstructed small bowel. Poorly evaluated stomach on account of underdist ention. Nonaneurysmal aorta. No lymphadenopathy. Diastatic ventral midline unchanged from the most recent com parison, there is also a fat-containing umbilical hernia with surrounding fatty reticulation that has not changed. Skin thickening and fatty reticulation at the patient's pannus is unchanged. No newly s een focal fluid collection. No acute or aggressive osseous process. Impression: 1. No acute abnormality seen throughout the abdomen or pelvis. 2. Fat-containing umbilical hernia and fatty reticulation along the ventral midline is unchanged fro m 06/03/2020. More pronounced inflammatory changes were present in this region and downward along the p atient's pannus on a study performed 08/12/2019. Stability since 06/03/2020 raises the question of scarr ing but active inflammation remains possible. Correlate for localized erythema. No evidence for a dorcas inable fluid collection. 3. Note is made that there is some excreted contrast in the collecting system suggesting a recently performed CT elsewhere. The patient has undergone numerous CT examinations at various hospitals mostl y since 2017. Recommend caution with future CT imaging given patient age and the extent of accumulati ng radiation exposure. Electronically signed by: NATALEE CHAVEZ MD (06/22/2020 9:27 PM) [facility]
--- NOTE | 2020-06-22 21:44 | RAD ---
Study: XR CHEST 1V Indication: Abdominal pain. Comparison: 09/10/2018 Findings: Within normal limits cardiomediastinal silhouette given AP technique. Symmetric chan. No focal airspa ce opacity, pleural effusion or pneumothorax. Impression: No acute radiographic abnormality of the chest. No relevant change from the 2018 comparison. Electronically signed by: NATALEE CHAVEZ MD (06/22/2020 9:42 PM) [facility]
[2020-06-22 22:26] LABS: BILIRUBIN,URINE NEG (NEG); CLARITY,URINE CLOUDY; COLOR,URINE YELLOW; GLUCOSE,URINE NEG (NEG); NITRITE,URINE NEG (NEG); UROBILINOGEN,URINE 0.2 mg/dL (0.2 mg/dL)
[2020-06-22 22:27] LABS: BACTERIA,URINE 0 /HPF (0-FEW); RBC,URINE >40 /HPF (0-2); SQUAMOUS EPITHELIAL CELL,UR MOD /LPF; WBC,URINE 0 /HPF (0-4)
--- NOTE | 2020-06-23 01:44 | EKG ---
[address] [address] Test Date: 2020-06-22 Test Time: 20:04:50 Pat Name: SEBLE JJ Department: Room: Gender: F [employer]: : 1990 Requested By: JAI BERGER Order Number: [id number] Reading MD: Measurements Intervals [place] Rate: 88 P: 28 NC: 118 QRS: 31 QRSD: 80 T: 5 QT: 398 QTc: 485 Interpretive Statements SINUS RHYTHM PROLONGED QT NO SPECIFIC ECG ABNORMALITIES RI6.02 No previous ECG available for comparison
== END 2020-06-22 22:51 | disposition home or self-care (01) ==
LOC: ER 18:46
DX: R10.31 Right lower quadrant pain (principal); R11.2 Nausea with vomiting, unspecified; F17.210 Nicotine dependence, cigarettes, uncomplicated; Z87.442 Personal history of urinary calculi; Z90.49 Acquired absence of other specified parts of digestive tract; Z90.89 Acquired absence of other organs
CPT/HCPCS: 36415; 71045; 74176; 80053; 81001; 81025; 83690; 85025; 85610; 85730; 93005; 96361; 96374; 96376; 99285; J1170; J2405